=== PATIENT | female | born 1970 | race Caucasian/White ===

== ENCOUNTER 2024-05-23 01:11 | Emergency (ER) | payer BC, SELFPAY ==
[2024-05-23 01:17] VITALS: BP 156/73; PULSE 82; RESP 18; O2SAT 98
--- OUTSIDE RECORDS SUMMARY | 2024-05-23 01:23 | XMS_ITS | Encounter Summary ---
Author Organization [facility] Address [facility] [place] [address] Care Team Providers Care Tobacco Warehouse Manager Name Role Phone Marina Henley MD Primary Care Provider Unava ilable Reason for Visit * Reason Comments Skin Cancer Examination Encounter Details Date Type Department Care Team (Late st Contact Info) Description 08/24/2021 10:30 AM EST Office Visit Dermatology at [facility] [address] [place] [address] Starla Ballard MD [facility] [address] [place] [address] Psoriasis; Lichen sclerosus; Lentigo; History of dysplastic nevus Social History Tobacco Use Types Packs/Day Years Used Date Smoking Tobacco: Never Smokeless Tobacco: Never Alcohol Use Standard Drinks/Week Comments Yes 0 (1 standard drink = 0.6 oz pur e alcohol) less than 1 per month Sex and Gender Information Value Date Recorded Sex Assigned at Not on file Gender Identity Not on file Sexual Orientation Not on file documented as of this encounter Patient Instructions * Patient Instructions* Emy Fung - 08/24/2021 10:59 AM EST For psoriasis: - Start Rx desoximetasone 0.25% ointment: Apply topically to affected area(s) on the right knee twice daily for up to 2 weeks. Take 1 week off and then repeat cycle as needed. For LS: - Continue Rx desoximetasone 0.25% ointment: Apply externally to the vulva twice daily for 2 weeks for flares, then twice weekly for maintenance. documented in this encounter Progress Notes * Starla Ballard MD - 08/24/2021 10:30 AM EST Images from the original note were not included. DEPARTMENT OF DERMATOLOGY Medical Dermatology Clinic Provider: STARLA BALLARD MD Patient's preferred name Ondina Preferred contact method for results [x]Phone []myD-H []Letter Detailed phone message OK? Yes Are there any other people with whom we may discuss your care? 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 Patient returns to clinic today for a full skin exam with the following concerns: - Patient has a history of vulvar lichen sclerosus, which has been treated with topical corticosteroids in the past. She notes that she had a reaction to augmented betamethasone in the past so she has avoided this. She was previously using desoximetasone ointment twice weekly for a couple of months(August-December), but after improvement, she discontinued use. Recently, she has started to develop pruritus, so she has started using desoximetasone twice weekly again. - She also has a rash on the right knee that started as a pruritic bright white crow. She was seen by her PCP, who prescribed triamcinolone cream, which has had some improvement but has not resolved the rash. She has some on her elbows, but it is not as itchy. Denies family history of psoriasis. Last visit at Dermatology: 11/16/2020 Medications: Reviewed in eD-H Allergies: Reviewed in eD-H Skin Examination: Full skin examination: Patient asked to undress to their comfort level. Verbalized that the provider's preference is that patient remove all clothing and that the provider will not examine areas patient elects to keep covered. Examination of the scalp, hair, head, face, ears, neck, chest, axillae, abdomen, back, buttocks, genitalia, and upper and lower extremities was normal with the exception ofthe findings below. Assessment/Plan A. Psoriasis - Heartwell scaly plaque on the right knee. - Discussed that this is a chronic inflammatory condition that can wax and wane in severity over time. - Start Rx desoximetasone 0.25% ointment: Apply topically to affected area(s) on the right knee twice daily for up to 2 weeks. Take 1 week off and then repeat cycle as needed. Discussed GoodRx. B. Lichen Sclerosus - White atrophic plaques with hemorrhage around the vaginal introitus. Diminution of the labia minora. - Discussed that this can lead to scarring over time if untreated, which can lead to functional impairment. - Continue Rx desoximetasone 0.25% ointment: Apply externally to the vulva twice daily for 2 weeks for flares, then twice weekly for maintenance. C. Lentigo - 5 mm brown macule on the left bridge of the nose (Figure 1). - Unchanged from previous photos. Updated photo taken today. D. History of DN - Well-healed scar on the central upper back per skin history. - No evidence of recurrence; will continue to monitor. Figure 1 Photo(s) taken and charted with patient's verbal consent. 30* minutes associated with visit, chart review, documentation, and coordination of care. RTC: 1 year for FSE; offered 6 month follow up for LS, but patient prefers to contact clinic if sheflares []Note routed to area secretary [x]Recall placed in scheduling system []Appointment scheduled at checkout Scribe attestation: Emy Fung and Fanny Martin CMA have performed the documentation for this encounter in the presence of and acting as a scribe for STARLA BALLARD MD. I performed the above scribed service and agree with the accuracy of the documentation in this encounter. Reviewed and signed by: STARLA BALLARD MD Dermatology [facility] documented in this encounter Plan of Treatment Not on file documented as of this encounter Visit Diagnoses Diagnosis Psoriasis Other psoriasis Lichen sclerosus Circumscribed scleroderma Lentigo Other dyschromia History of dysplastic nevus Personal history of diseases of skin and subcutaneous tissue documented in this encounter Care Teams Tobacco Warehouse Manager Relationship Specialty Start Date End Date Marina Henley MD PCP - General General Internal Medicine 11/16/20 07/26/22 documented as of this encounter
--- OUTSIDE RECORDS SUMMARY | 2024-05-23 01:23 | XMS_ITS | Encounter Summary ---
Author Organization [facility] Address [facility] [place] [address] Care Team Providers Care Manager Research And Development Name Role Phone Marina Henley MD Primary Care Provider Umm ackerman Encounter Details Date Type Department Care Team (Late st Contact Info) Description 02/28/2022 Telephone Dermatology at [facility] [address] [place] [address] Sayda Ballard MD [facility] [address] [address] Social History Tobacco Use Types Packs/Day Years [...] on file documented as of this encounter Miscellaneous Notes * Telephone Encounter - Jojo Bennett LPN - 03/02/2022 10:09 AM EDT Called patient and message left that Dr. Ballard felt one year was fine * Telephone Encounter - Lida Dallas - 02/28/2022 1:11 PM EDT I received a phone call from Ondina Fox stating she saw Dr. Ballard in August of 2021 and was told to follow up in 1 year but she just found out that her sister has a newly diagnosed case of melanoma and her mother with breast cancer. She wants to know if she should be seen sooner then 1 year. She did not have any new spots that she could see. She can be reached back at [phone] and it isok to leave a detailed message documented in this encounter Plan of Treatment Not on file documented as of this encounter Visit Diagnoses Not on filedocumented in this encounter Care Teams Manager Research And Development Relationship Specialty Start Date End Date Marina Henley MD PCP - General General Internal Medicine 11/16/20 07/26/22 documented as of this encounter
--- OUTSIDE RECORDS SUMMARY | 2024-05-23 01:23 | XMS_ITS | Encounter Summary ---
Author Organization [facility] Address [facility] [place] [address] Care Team Providers Care Director Digital Analytics Name Role Phone Nadya Mejia PHOTOGRAPHER PORTRAIT Primary Care Provider Encounter Details Date Type Department Care Team (Latest Contact Info) Description 10/25/2023 11:00 AM EDT - 10/25/2023 11:59 PM EDT Hospital Encounter Mammography[place] [id number] Nadya Mejia, PHOTOGRAPHER PORTRAIT [address] [place] [address] Encounter for screening mammogram for breast cancer Discharge Disposition: Home Social History Tobacco Use Types Packs/Day Years [...] on file documented as of this encounter Medications at Time of Discharge Medication Sig Dispensed Refills Start Date End Date desoximetasone (TOPICORT) 0.25 % OintmentIndications:Liche n sclerosus Apply externally to the vulva twice daily once weekly for maintenance. With flares, increase to twice daily for 1-2 weeks. 60 g 1 09/19/2022 desoximetasone (TOPICORT) 0.25 % OintmentIndications:Psori asis Apply topically to affected area(s) on the right knee twice daily for up to 2 weeks. Take 1 week off and then repeat cycle as needed. Apply once to twice weekly to the vulva for maintenance or twice daily for one to two weeks for flares. 100 g 2 08/24/2021 clobetasoL (TEMOVATE) 0.05 % Ointment Apply topically 2 times daily. Use for 2-3 weeks twice daily, then change to once a day on Saturday, Saturday and Saturday. 30 g 2 08/26/2020 augmented betamethasone dipropionate (DIPROLENE-AF) 0.05 % OintmentIndications:Liche n sclerosus Apply to the affected areas twice daily for 14 days. Take two weeks off. Repeat this if needed for flares 45 g 1 08/25/2020 econazole nitrate 1 % CreamIndications:Tinea pedis of both feet Apply topically BID x 3 weeks 15 g 1 03/15/2016 koxotoo-hhjkqeoygfvmk-xyt feine (EXCEDRIN MIGRAINE) 250-250-65 mg Tablet Take 1 tablet by mouth every 6 hours as needed for Pain. propranolol (INDERAL) 20 mg Tablet Take 20 mg by mouth as needed. 0 11/16/2014 Ibuprofen 200 mg Capsule Take by mouth as needed. documented as of this encounter Plan of Treatment Not on file documented as of this encounter Procedures Procedure Name Priority Date/Time Associated Diagnosis Comments MAMMO SCREENING CAD AND KEVIN BILATERAL Routine 10/25/2023 11:18 AM EDT Encounter for screening mammogram for breast cancer documented in this encounter Results * Mammo Screening Cad and Kevin Bilateral (10/25/2023 11:18 AM EDT) Pathologist [employer] WORKSTATION ID [id number] 1 DH RAD Anatomical Region Laterality Modality Breast Bilateral Mammography Impressions 10/25/2023 5:28 PM EDT No mammographic evidence of malignancy. Annual screening mammography is recommended. Consider risk evaluation given family history breast cancer and personal history of dense breast tissue. Patient may benefit from supplemental screening. FINAL ASSESSMENT: BI-RADS Category 1: Negative Thank you for letting us participate in the care of this patient. ??If you are a health care provider and have any questions regarding this report, please contact the number below. ??For patients who have questions please contact the health reservoir caretaker that requested your imaging first. ? Electronically signed by: Beth Adams MD, [facility] ?? ([phone]), at 10/25/2023 5:28 PM Narrative 10/25/2023 5:28 PM EDT EXAMINATION: MAMMO SCREENING CAD AND KEVIN BILATERAL REASON FOR EXAM: Screening; mother with breast cancer history. TECHNIQUE: CC and MLO views were obtained of BOTH breasts. 2D and 3D tomosynthesis images were obtained. Computer aided detection was used. COMPARISON: Comparison was made to the prior relevant examinations. BREAST DENSITY: The breast tissue is heterogeneously dense, which may obscure small masses. FINDINGS: There are no suspicious microcalcifications, masses, or areas of distortion. Stable appearance. Nadya Mejia APRN IMG MAMMO ORDERABLE S documented in this encounter Visit Diagnoses Diagnosis Encounter for screening mammogram for breast cancer documented in this encounter Care Teams Director Digital Analytics Relationship Specialty Start Date End Date Nadya Mejia APRN [address] [place] [address] PCP - General Family Medicine 07/27/22 documented as of this encounter
--- OUTSIDE RECORDS SUMMARY | 2024-05-23 01:23 | XMS_ITS | Encounter Summary ---
Author Organization [facility] Address [facility] [place] [address] Care Team Providers Care Phone Triage Specialist Name Role Phone Arita, Priyanka Jacobs APRN Primary Care Provid er Encounter Details Date Type Department Care Team (Late st Contact Info) Description 03/03/2018 Telephone Dermatology at [facility] [address] [place] [address] Liz Weston MD [facility] [place] [address] Social History Tobacco Use Types Packs/Day Years [...] encounter Miscellaneous Notes * Telephone Encounter - Edwardo Segal - 03/11/2018 11:20 AM EDT I spoke with Ondina's , 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 He told me she would call when she can to reschedule her appointment * Telephone Encounter - Edwardo Segal - 03/03/2018 3:26 PM EDT I left my direct call back #, her 07/04 appointment will need to be rescheduled documented in this encounter Plan of Treatment Not on file documented as of this encounter Visit Diagnoses Not on filedocumented in this encounter Care Teams Phone Triage Specialist Relationship Specialty Start Date End Date Priyanka Arita, KRISTEL PCP - General 04/06/13 08/04/18 documented as of this encounter
--- OUTSIDE RECORDS SUMMARY | 2024-05-23 01:23 | XMS_ITS | Encounter Summary ---
Author Organization [facility] [place] [address] Care Team Providers Care Production Sampler Name Role Phone Nadya Mejia APRN Primary Care Provider [phone] Reason for Referral * Consultation (Routine) - Closed Specialty Diagnoses / Procedures Referred By Kristi t Referred To Contact Obstetrics and Gynecology Diagnoses Lichen sclerosus Nadya Mejia APRN [address] [address] [facility] Senior Applications Analyst [address] [address] Referral ID Status Reason Start Date Expiration Date V isits Requested Visits Authorized [id number] Closed Consult, Test & Treat PCP Updated and/or Approved 01/10/2023 01/10/2024 6 6 Encounter Details Date Type Department Care Team (Late st Contact Info) Description 01/10/2023 Transcribe Orders eDH Incoming Referrals [phone] Nadya Mejia APRN [address] [place], [place] [id number] Lichen sclerosus Social History Tobacco Use Types Packs/Day Years [...] on file documented as of this encounter Plan of Treatment Scheduled Referrals Name Type Priority Associated Diagnoses Orde r Schedule Referral to Ob-Aircraft Mechanic Outpatient Referral Routine Lichen sclerosus Ordered: 01/10/2023 documented as of this encounter Visit Diagnoses Diagnosis Lichen sclerosus Circumscribed scleroderma documented in this encounter Care Teams Production Sampler Relationship Specialty Start Date End Date Nadya Mejia, KRISTEL [address] [place] [address] PCP - General Family Medicine 07/27/22 documented as of this encounter
--- OUTSIDE RECORDS SUMMARY | 2024-05-23 01:23 | XMS_ITS | Encounter Summary ---
Author Organization [facility] Address [facility] [place] [address] Care Team Providers Care Mold Worker Name Role Phone Tamia Perez Primary Care Provider [phone] Reason for Visit * Reason Comments Skin Check Encounter Details Date Type Department Care Team (Late st Contact Info) Description 08/11/2018 3:30 PM EST Office Visit Dermatology at [facility] [address] [place] [id number] Sandra Hemphill MD [facility] [place] [address] Solar lentigo; Multiple benign nevi; Viral warts, unspecified type; Neoplasm of uncertain behavior of skin; Lichen sclerosus Social History Tobacco Use Types [...] on file documented as of this encounter Progress Notes * Sandra Hemphill MD - 08/11/2018 3:30 PM EST Images from the original note were not included. DERMATOLOGY AT [facility] Dermatology At [facility] [address] [facility] [address] FOLLOW-UP Date of service: 08/11/2018 Ondina Seth Fxo : 1970 Provider: Sandra Hemphill MD Preferred name: Ondina Preferred contact method with results: Home # Message okay: Yes ?? SKIN HISTORY H/o dysplastic nevi - mild atypia History of sunburns on scalp History of blistering sunburns History of lots of sun exposure -06/28/17: central upper back just left of midline, shave biopsy:Moderately atypical compound dysplastic melanocytic nevus, Melanoma, Sister Chief Complaint: annual full skin exam History of Present Illness Ondina Fox is a 48 y.o. female with a history of dysplastic nevi. Established patient, last seen 06/28/17. Here today for an annual full skin exam. Patient notes that she has a concerning brown spot on the left side of her nose. She states that she has had this spot checked before. Patient alsostates that she noticed some bumps on her right hand today and is wondering what they may be. Patient notes that her toe nail/foot fungus has returned and she is not interested in trying to retreat this today. She did take oral medication but the fungus returned after clearing. Preferred pharmacy: [facility] [place], [place] Medical History Allergies Hibiclens [chlorhexidine gluconate] Medications Current Outpatient Medications Medication Sig Dispense Refill ??? econazole nitrate 1 % Cream Apply topically BID x 3 weeks 15 g 1 ??? xqbsrvn-qmpgzdwviygzy-rcfiytve (EXCEDRIN MIGRAINE) 250-250-65 mg Tablet Take 1 tablet by mouth every 6 hours as needed for Pain. ??? propranolol (INDERAL) 20 mg Tablet Take 20 mg by mouth as needed. 0 ??? Ibuprofen 200 mg Capsule Take by mouth as needed. No current facility-administered medications for this visit. Social History - History of blistering sunburns Family History - Melanoma, sister (on the face) Review of Systems General: feeling well Skin: denies other skin complaints Examination General: NAD, pleasant, cooperative. Type of exam: The patient was asked to disrobe to the level of their comfort. Full skin examination of the scalp, hair, head, face, neck, back, chest, abdomen, right and left upper extremities, right and left lower extremities and buttocks was normal with the exception of the findings listed below. Significant skin findings: ?? Beneath the left nare: 2mm shiny papule. ?? Left nasal sidewall: clover leaf shaped brown evenly pigmented, well- demarcated macule. ?? Right upper nasal sidewall: 2.5mm pink papule. Back:Multiple, 0.3-0.5cm, medium-brown, evenly-pigmented macules and papules. No pigmented lesions suspicious for melanoma. ?? Base of the thumb: flesh colored papule ?? White patches bilateral vulva, labia major, and extending to the perineum. lichen sclerosus resorption of the labia Images Photo taken and charted with patient consent [Figure A] ASSESSMENT/PLAN: Neoplasm of the Skin DDx: R/o BCC Procedure: Skin biopsy by shave technique Time of procedure: 4:10 PM Location: beneath the left nare Discussed indications for procedure and expectations including risks and benefits. Verbal consent obtained. Skin prep with alcohol. Local anesthesia with 1% xylocaine, 1/100,000 epinephrine. A sampleof the lesion was removed by shave technique to the level of the dermis and submitted to Pathology.Hemostasis obtained (AlCl and/or electrocautery). There were no complications; the pt. tolerated the procedure well. The wound was dressed. Post-procedure expectations, wound care and activity restrictions were reviewed. Follow-up based on pathology results. Solar Lentigo - Benign. No treatment necessary. - Reassured about benign nature and natural history. - Sun avoidance, protective clothing and the use of SPF 30+ sunscreen is advised. Observe closely for skin changes and call if such occurs. Benign Appearing Nevi - Benign. No treatment necessary. - Reassured about benign nature and natural history. Warts ?? Counseled: warts, treatment options (including their risks and benefits), including cryotherapy. ?? No treatment necessary at this time. Lichen Sclerosus - Discussed nature and natural history. - No treatment necessary at this time. Not symptomatic. - Will treat if becomes symptomatic. RTC Pending pathology results. Otherwise August 2019 for 1 year full skin exam, hx of dysplastic nevi- or sooner as needed. Note initiated and routed to physician for review and change by: AMANDA Quarles I, AMANDA Quarles, have performed the documentation for this encounter in the presence of and acting as a scribe for SANDRA HEMPHILL MD. I performed the services which were documented by the scribe, and I agree with the accuracy of the documentation in this encounter. SANDRA HEMPHILL MD. Sandra Hemphill MD Section of Dermatology [facility] documented in this encounter Plan of Treatment Not on file documented as of this encounter Procedures Procedure Name Priority Date/Time Associated Diagnosis Comments SPECIMEN TO PATHOLOGY Routine 08/11/2018 4:48 PM EST Neoplasm of uncertain behavior of skin SURGICAL PATHOLOGY REPORT Routine 08/11/2018 4:10 PM EST documented in this encounter Results * Specimen to Pathology (08/11/2018 4:48 PM EST) AP Specimen 08/11/2018 4:48 PM EST 08/11/2018 6:[address] [facility] - 08/11/2018 6:11 PM EST Specimen requisition ordered. ??Separate Pathology report to follow Resulting Agency Comment Spec In Lab Sandra Hemphill MD PATHOLOGY/CYTOLOGY O RDERABLES [facility] [place] [address] * Surgical Pathology Report (08/11/2018 4:10 PM EST) Final Diagnosis [id number] ? Location: [facility] The signing pathologist has (i) examined the relevant preparation(s) for the specimen(s) and (ii) rendered or confirmed the diagnosis(es). . ?Surgical Pathology DIAGNOSIS Skin, beneath the left nare, shave biopsy: - Predominantly intradermal melanocytic nevus Electronically signed by: ??Molina Jasso MD Verified: ??08/13/2018 ?Dermatopatholog ist, Bone & Soft Tissue Pathologist Performed at: ??-[facility], [place], [place] ADDITIONAL STUDIES Multiple deeper sections have been examined. CLINICAL INFORMATION Specimen Submitted: A - Skin, beneath the left nare, shave biopsy (1) Clinical History and Diagnosis: Beneath the left nare: 2 mm shiny papule. DDX: R/O BCC SPECIMEN PROCESSING A - Labeled/Fixative: Patient's name, demographics, formalin. Quantity/Size: ??Single, 0.3 x 0.2 cm. Tissue Description: Ovoid, translucent lambert-white skin shave. Sections/Processi ng: Submitted en toto ??in 1 cassette labeled A1. ??shb 08/13/2018 2:[address] [facility] SPECIMEN FROM SKIN / Unknown 08/11/2018 4:10 PM EST 08/11/2018 4:10 PM EST Sandra Hemphill MD PATHOLOGY/CYTOLOGY O RDERABLES [facility] [place] [address] documented in this encounter Visit Diagnoses Diagnosis Solar lentigo Other dyschromia Multiple benign nevi Benign neoplasm of skin, site unspecified Viral warts, unspecified type Neoplasm of uncertain behavior of skin Lichen sclerosus Circumscribed scleroderma documented in this encounter Care Teams Mold Worker Relationship Specialty Start Date End Date Tamia Perez PA [address] [place] [address] PCP - General Family Medicine 08/05/18 09/18/20 documented as of this encounter
--- OUTSIDE RECORDS SUMMARY | 2024-05-23 01:23 | XMS_ITS | Encounter Summary ---
Author Organization Formerly [facility], [facility] Address [facility] [place] [address] Care Team Providers Care Recycle Coordinator Name Role Phone Tamia Perez Primary Care Provider +1 [phone] Encounter Details Date Type Department Care Team (Late st Contact Info) Description 05/20/2019 Telephone Dermatology at [facility] [address] [place] [address] Liz Weston MD [facility] [place] [address] Social History Tobacco Use Types Packs/Day Years [...] encounter Miscellaneous Notes * Telephone Encounter - Sunita Pradhan LPN - 05/20/2019 9:56 AM EST Called patient- Left message with directions Dr. Weston gave for a topical medication. Patient gave permission to leave a detailed message during our last phone conversation. Reiterated in the message to call back if she had any questions or did not understand the directions for the medication. documented in this encounter Plan of Treatment Not on file documented as of this encounter Visit Diagnoses Not on filedocumented in this encounter Care Teams Recycle Coordinator Relationship Specialty Start Date End Date Tamia Perez PA [address] [address] PCP - General Family Medicine 08/05/18 09/18/20 documented as of this encounter
--- OUTSIDE RECORDS SUMMARY | 2024-05-23 01:23 | XMS_ITS | Encounter Summary ---
Author Organization [facility] Address [facility] [place] [address] Care Team Providers Care Pre Sales Systems Engineer Name Role Phone Tamia Perez Primary Care Provider +1 [phone] Encounter Details Date Type Department Care Team (Late st Contact Info) Description 04/19/2020 Telephone Dermatology at [facility] [address] [place] [address] Liz Weston MD [facility] [place] [address] Social History Tobacco Use Types Packs/Day Years [...] encounter Miscellaneous Notes * Telephone Encounter - Nataliia Ramirez LPN - 04/19/2020 2:59 PM EDT Augmented betamethasone dipropionate 0.05% ointment prepped and pended to Dr. Weston for signature. Nataliia Ramirez LPN * Telephone Encounter - Elba Lozada R - 04/19/2020 1:58 PM EDT Medication Request Who requested: Patient Medication(s): ?? augmented betamethasone dipropionate (DIPROLENE-AF) 0.05 % Ointment (last prescribed 08/25/19) Pharmacy: [facility] Last seen: 03/14/2020 - RTC: 6m FSE Follow up scheduled for: Nothing currently scheduled Comments: Patient contact: [phone] documented in this encounter Plan of Treatment Not on file documented as of this encounter Visit Diagnoses Not on filedocumented in this encounter Care Teams Pre Sales Systems Engineer Relationship Specialty Start Date End Date Tamia Perez PA [address] [place] [id number] PCP - General Family Medicine 08/05/18 09/18/20 documented as of this encounter
--- OUTSIDE RECORDS SUMMARY | 2024-05-23 01:23 | XMS_ITS | Encounter Summary ---
Author Organization [facility] Address [facility] [place] [address] Care Team Providers Care User Support Analyst Supervisor Name Role Phone Nadya Mejia ENROLLED AGENT Primary Care Provider Encounter Details Date Type Department Care Team (Latest Contact Info) Description 09/19/2022 9:22 AM EDT - 09/19/2022 11:59 PM EDT Hospital Encounter Mammography/[place] [phone] Nadya Mejia, ENROLLED AGENT [address] [place] [address] Visit for screening mammogram Discharge Disposition: Home Social History Tobacco Use [...] x 3 weeks 15 g 1 03/15/2016 vljsuwz-vijiueftkwkix-hbu feine (EXCEDRIN MIGRAINE) 250-250-65 mg Tablet Take [...] MAMMO SCREENING CAD AND KEVIN BILATERAL Routine 09/19/2022 10:38 AM EDT Visit for screening mammogram documented in this encounter Results * Mammo Screening Cad and Kevin Bilateral (09/19/2022 10:38 AM EDT) Anatomical Region Laterality Modality Breast Bilateral Mammography Narrative 09/19/2022 10:45 AM EDT BILATERAL MAMMOGRAPHY REASON FOR EXAM: Screening TECHNIQUE: CC and MLO views were obtained of each breast using standard 2-D mammography as well as 3-D tomosynthesis. Computer aided detection was used. This is compared with prior images. FINDINGS: ??The breasts are heterogeneously dense, which may obscure small masses. There are no suspicious microcalcifications, masses, or areas of distortion. The pattern is stable. CONCLUSION: No mammographic evidence of malignancy. RECOMMENDATION: Regular screening mammograms starting between age 40 and 50 reduces the risk of from breast cancer. All screening tests have both risks and benefits. These risks and benefits should be assessed for each individual patient through discussion with their provider to determine their preferred breast cancer screening schedule. Women should report any breast changes to a health care provider right away. Some women, because of their family history, a genetic tendency, or other factors, should be screened with annual breast MRI as well as with mammograms. (The number of women who fall into this category is very small). Patients and health care providers should discuss each patient? s history to decide if earlier screening and/or breast MRI are appropriate. Screening should continue as long as a woman is in good health and is expected to live 10 years or longer. Screening mammography may not detect 10-15% of breast cancers. A result letter has been sent to this patient by the [facility]. BIRADS CATEGORY 1: NEGATIVE Electronically signed by: ESTUARDO ARREDONDO MD Nadya Mejia APRN IMG MAMMO ORDERABLE S documented in this encounter Visit Diagnoses Diagnosis Visit for screening mammogram Other screening mammogram documented in this encounter Care Teams User Support Analyst Supervisor Relationship Specialty Start Date End Date Nadya Mejia APRN [address] [place] [address] PCP - General Family Medicine 07/27/22 documented as of this encounter
--- OUTSIDE RECORDS SUMMARY | 2024-05-23 01:23 | XMS_ITS | Encounter Summary ---
Author Organization [facility] Address [facility] [place] [address] Care Team Providers Care Grain Roaster Name Role Phone Tamia Perez Primary Care Provider [phone] [phone] Encounter Details Date Type Department Care Team (Late st Contact Info) Description 08/25/2020 Telephone Dermatology at [facility] [address] [place] [address] Liz Weston MD [facility] [place] [address] Social History Tobacco Use Types Packs/Day Years [...] Telephone Encounter - Nataliia Ramirez LPN - 08/25/2020 4:33 PM EST I received a return call from Ondina. See telephone encounter from 08/22/20. Ondina reports itching, burning and discomfort to the areas of Lichen Sclerosus on labia for the past 2 weeks. Reports this is sometimes causing difficulty to sit. She has been using the augmented betamethasone twice daily x 2 weeks with no improvement. She denies any further concerns, including burning with urination, fever or chills. I consulted with Dr. Weston over the phone, who would like to see Ondina in person to r/o any possible infection. I returned Ondina's call and relayed Dr. Weston's recommendation, she is happy with this plan, and will plan on being seen by Dr. Weston tomorrow at 1300. Patient will not pickle processor her recent refill of augmented betamethasone in the meantime. I encouraged her to call our clinic with any new/worsening symptoms. Patient verbalized understanding and was appreciative for our help. Kaleigh Cruz notified, who scheduled Ondina for tomorrow at 1300. Nataliia Ramirez LPN documented in this encounter Plan of Treatment Not on file documented as of this encounter Visit Diagnoses Not on filedocumented in this encounter Care Teams Grain Roaster Relationship Specialty Start Date End Date Tamia Perez PA [address] [place] [address] PCP - General Family Medicine 08/05/18 09/18/20 documented as of this encounter
--- OUTSIDE RECORDS SUMMARY | 2024-05-23 01:23 | XMS_ITS | Encounter Summary ---
Author Organization [facility] Address [facility] [place] [address] Care Team Providers Care Board Hammer Operator Name Role Phone Tamia Perez Primary Care Provider [phone] [phone] Reason for Visit * Reason Onset Date Comments Medication Refill 04/19/2020 Encounter Details Date Type Department Care Team (Late st Contact Info) Description 04/19/2020 Refill Dermatology at [facility] [address] [place] [address] Liz Weston MD [facility] [address] [address] Lichen sclerosus Social History Tobacco Use Types [...] Encounter - Nataliia Ramirez LPN - 04/19/2020 2:55 PM EDT Augmented betamethasone dipropionate (DIPROLENE-AF) 0.05% Ointment refill prescription for Lichen Sclerosus prepped and pended to Dr. Weston to review, sign, and send to the preferred pharmacy. Patient was last seen by Dr. Weston on 03/14/20 for a spot check, LS examined 08/24/19, and a reminder is in place for her to return to clinic in 08/2020. Nataliia Ramirez LPN documented in this encounter Plan of Treatment Not on file documented as of this encounter Visit Diagnoses Diagnosis Lichen sclerosus Circumscribed scleroderma documented in this encounter Care Teams Board Hammer Operator Relationship Specialty Start Date End Date Tamia Perez PA [address] [address] PCP - General Family Medicine 08/05/18 09/18/20 documented as of this encounter
--- OUTSIDE RECORDS SUMMARY | 2024-05-23 01:23 | XMS_ITS | Encounter Summary ---
Author Organization [facility] Address [facility] [place] [address] Care Team Providers Care Railroad Track Inspector Name Role Phone Tamia Perez Primary Care Provider +1 [phone] Encounter Details Date Type Department Care Team (Late st Contact Info) Description 05/20/2019 Orders Only Dermatology at [facility] [address] [place] [address] Liz Weston MD [facility] [address] [place] [address] Social History Tobacco Use Types Packs/Day Years [...] as of this encounter Progress Notes * Liz Weston MD - 05/20/2019 8:55 AM EST Requested med for itching in vulva due to LS. I wrote for betamethasone ointment. Use bid x 2 weeks, then stop. Asked MA to call her and advise: 1) use small amount, rub in well. 2) stop after two weeks, then may use Mon/Wed/Fri if needed, bid 3)come in if this not working or problem gets worse 4)steroid can be complicated by yeast infection, which would show up likely as worsening itch I tried to call home phone, just go machine. documented in this encounter Plan of Treatment Not on file documented as of this encounter Visit Diagnoses Not on filedocumented in this encounter Care Teams Railroad Track Inspector Relationship Specialty Start Date End Date Tamia Perez PA [address] [place] [address] PCP - General Family Medicine 08/05/18 09/18/20 documented as of this encounter
--- OUTSIDE RECORDS SUMMARY | 2024-05-23 01:23 | XMS_ITS | Encounter Summary ---
Author Organization [facility] [place] [address] Care Team Providers Care Nurse Practical Name Role Phone Nadya Mejia APRN Primary Care Provider [phone]- [phone] Encounter Details Date Type Department Care Team (Latest Contact Info) Description 11/22/2023 Travel Social History Tobacco Use Types Packs/Day Years [...] on filedocumented in this encounter Care Teams Nurse Practical Relationship Specialty Start Date End Date Nadya Mejia APRN [address] [place] [address] PCP - General Family Medicine 07/27/22 documented as of this encounter
--- OUTSIDE RECORDS SUMMARY | 2024-05-23 01:23 | XMS_ITS | Encounter Summary ---
Author Organization [facility] Address [facility] [place] [address] Care Team Providers Care Sewing Machine Bobbin Winder Name Role Phone Tamia Perez Primary Care Provider [phone] [phone] Encounter Details Date Type Department Care Team (Latest Contact Info) Description 12/17/2019 3:20 PM EDT - 12/17/2019 11:59 PM EDT Hospital Encounter M[place]ography[place] [phone] Tamia Perez PA [facility] [address] [place] [address] Encounter for screening mammogram for breast cancer [...] Sig Dispensed Refills Start Date End Date econazole nitrate 1 % CreamIndications:Tinea pedis of both feet Apply topically BID x 3 weeks 15 g 1 03/15/2016 ibuvpjp-ueqxqowfajqve-iib feine (EXCEDRIN MIGRAINE) 250-250-65 mg Tablet Take 1 tablet by mouth every 6 hours as needed for Pain. propranolol (INDERAL) 20 mg Tablet Take 20 mg by mouth as needed. 0 11/16/2014 Ibuprofen 200 mg Capsule Take by mouth as needed. augmented betamethasone dipropionate (DIPROLENE-AF) 0.05 % OintmentIndications:Liche n sclerosus Apply 1 each topically 2 times daily. Use up to two weeks, then stop. 15 g 08/25/2019 04/19/2020 documented as of this encounter Plan of Treatment Not on file documented as of this encounter Procedures Procedure Name Priority Date/Time Associated Diagnosis Comments MAMMO SCREENING CAD AND KEVIN BILATERAL Routine 12/17/2019 3:46 PM EDT Encounter for screening mammogram for breast cancer documented in this encounter Results * Mammo Screening Cad and Kevin Bilateral (12/17/2019 3:46 PM EDT) Anatomical Region Laterality Modality Breast Bilateral Mammography Narrative 12/18/2019 8:20 AM EDT BILATERAL MAMMOGRAPHY REASON FOR EXAM: [...] [facility] BIRADS CATEGORY 1: NEGATIVE Tamia MARTINEZ MAMMO ORDERAB LES documented in this encounter Visit Diagnoses Diagnosis Encounter for screening mammogram for breast cancer documented in this encounter Care Teams Sewing Machine Bobbin Winder Relationship Specialty Start Date End Date Tamia Perez PA [address] [address] PCP - General Family Medicine 08/05/18 09/18/20 documented as of this encounter
--- OUTSIDE RECORDS SUMMARY | 2024-05-23 01:23 | XMS_ITS | Encounter Summary ---
Author Organization [facility] Address [facility] [place] [address] Care Team Providers Care Counseling Center Director Name Role Phone AritaUgo bonillaedelmira Jacobs APRN Primary Care Provid er Reason for Visit * Reason Comments Skin Check * Consultation (Routine) - Closed Specialty Diagnoses / Procedures Referred By Kristi good Referred To Contact Dermatology Diagnoses skin check, skin lesions Procedures skin check Tamia Perez PA [address] [facility] [address] [place] [address] [facility] Dermatology [address] [place] [address] Referral ID Status Reason Start Date Expiration Date V isits Requested Visits Authorized [id number] Closed Consult, Test & Treat Connection Center PCP Updated and/or Approved 01/03/2016 01/02/2017 1 1 Encounter Details Date Type Department Care Team (Late st Contact Info) Description 03/15/2016 9:45 AM EDT Office Visit Dermatology at [facility] [address] [place] [phone] Yolanda Najera MD [facility] [place] [address] Multiple benign nevi; Poikiloderma of Civatte; Tinea pedis of both feet; Onychomycosis Social History Tobacco Use Types Packs/Day Years [...] this encounter Patient Instructions * Patient Instructions* Kathy Combs - 03/15/2016 9:45 AM EDT Plan for Ondina: - Recommended sunscreens: Solange Garcia mineral based sunscreen, ThinkBaby Athlete's Foot: - Start Rx: econazole cream twice daily x 3 weeks Caring for Your Skin Sun Protection Exposure to ultraviolet (UV) light--from the sun or tanning beds--is the most common modifiable risk factor for skin cancer. In fact, most skin cancers are found in locations where sun exposure is highest (e.g., face, ears, and hands). Furthermore, UV exposure is associated with skin aging, including wrinkles, brown spots, and leathery skin. Recommendations ?? Generously apply a broad-spectrum water-resistant sunscreen with a Sun Protection Factor (SPF) of 30 or more to all exposed skin. ?? Reapply sunscreen every 2 hours, even on cloudy days, and after swimming or sweating. ?? Preferred sunscreens: Sunscreens work by either forming a physical or a chemical barrier to ultraviolet light. Zinc oxide or Titanium dioxide are physical barriers to the sun. We recommend sunscreens that contain at least one physical barrier. Look for these brands: Neutrogena, Blue Lizard, [place] Baby, Philippe Ruvalcaba MD, Solange eng spf 45 very emollient sport (blue bottle) ?? Wear protective clothing. Long-sleeved shirts, pants, a wide-brimmed hat and sunglasses are all excellent choices. Some companies produce great, breathable SPF clothing (Coolibar, LL Denis, Saturday Afternoons) ?? Seek shade. The sun's rays are strongest between 10a.m. And 4 p.m. ?? Recommend daily face lotion spf 15-30 (Yvonne ONEIL, Delfin Santos) Skin Cancer screening The incidence of skin cancer has increased dramatically in the past 20 years. The most common skin cancer types include basal cell carcinoma and squamous cell carcinoma. These often look like new moles, and they might be tender, scaly, or prone to bleeding. The most deadly form of skin cancer is melanoma, and it can affect people of all ages and skin types. Recommendations ?? We recommend performing a skin self-examination monthly to become familiar with your moles. Thiswill help you to detect new or changing moles earlier. ?? Remember the ABCDE's of melanoma: ?? Asymmetry - Melanoma tends to grow in an asymmetric (uneven) fashion ?? Border - The border in melanoma tends to be uneven or jagged ?? Color - Melanomas often have different colors (e.g., dark brown, black, red) ?? Diameter - Look for moles that are larger than 0.6 cm (the size of a pencil eraser) ?? Evolution - This is perhaps the most important feature. Any mole that is rapidly growing or changing should be evaluated. If you have any questions, please call [phone]. documented in this encounter Progress Notes * Yolanda Najera MD - 03/15/2016 9:45 AM EDT DERMATOLOGY - CONSULT PATIENT NOTE Date of service: 03/15/2016 Ondina Fox : 1970 CC: skin exam HPI: Ondina Fox is a 45 y.o. female seen in consultation at the request of MAVIS Dickey for evaluation of skin lesions - mole check - has not identified any worrisome moles - Toenail fungus for 10-15 years, hurts. Has seen a property claims adjuster who told her there was nothing she could do about it. Was recently seen by her PCP and had labs and Rx sent but she didn't start yet. Last FSE: 2013, Dr. Lopez Sun protection: sometimes on face and upper chest and back. Does not do legs. Outside a lot. Prefers to wear protective clothing. Worried about chemicals in sunscreens. Relevant Medical History: Preferred name: Ondina Skin type: 2 Yes/No If yes (date, subtype, location, treatment) Melanoma n Dysplastic nevi yes Mild atypia SCC n BCC n AK n Eczema/Psoriasis n Immunosuppression or Malignancy n History of blistering sunburn y As a teen Other n Procedure Screening Questions: Yes/No If Yes, details Defibrillator/Pacemaker n Artificial Joints n Heart Valves n Blood Thinners n Prophylactic Antibiotics n Best way to reach with results Home Ok to leave message Relevant FamilyHistory: Yes/No If yes, who (mom/dad/sibling/child) Melanoma n SCC n BCC n Psoriasis or Eczema n Other Social History: Occupation: [employer] 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 Hibiclens [Chlorhexidine Gluconate] Other (See Comments) Possible reaction on day of surgery. Patient reports that entire leg turned red. Review of Systems: - General: Feels well. - Skin: No other skin concerns. Examination: - Constitutional: Patient was alert, well-appearing and in no noticeable distress. - Skin exam: The patient was asked to disrobe to the level of their comfort. Full skin examination of the scalp, hair, head, face, neck, back, chest, abdomen, right and left upper extremities, right and left lower extremities and buttocks was normal with the exception of the findings listed below. Skin Type: 2 Notable findings/Assessment/Plan: 1. Low density benign nevi - Scattered reddish-brown macules and papules on the trunk and extremities with reassuring pigment pattern on dermoscopy. - Reassured of benign appearance on exam today. 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 Cover up. - Patient opted for no treatment at this time. 3. Tinea Pedis - pink arcuate scaly red patches on the bilateral feet - Reviewed diagnosis and treatment. Rx efaxed for Rx: econazole cream BID x 3 weeks 4. Onychomycosis - onychodystrophy of the toenails - Reviewed diagnosis and treatment options. Discussed side effects of oral therapy and risk of recurrence. Given pain or difficulty fitting into shoes would not recommend oral therapy at this time. - We discussed using Lamisil for onychomycosis. This drug offers a fairly high but not universal cure rate. A 12 week treatment course is recommended. The patient is aware that rare cases of liver injury have been reported; and agrees to come in for liver function tests at 6 weeks of treatment. Thesymptoms of liver disease have been discussed; call if such occurs. In addition, some insurance plans do not cover the expense of this drug for treating a cosmetic condition, and the patient understands they may have to pay for the medication. Other side effects, such as headaches and rashes, have also been discussed. - PCP prescribed lamisil and did baseline labs, will follow-up with them to do repeat labs in 1 month. RTC: February 2018 for a FSE or PRN if symptoms worsen or persist. Note initiated by NATASHA CHEEK LPN. Kathy Combs has performed the documentation for this encounter in the presence of and acting asa scribe for Dr. Najera. I performed the above scribed service and agree with the accuracy of the documentation in this encounter. Reviewed and signed by: Yolanda Najera MD Dermatology [facility] documented in this encounter Plan of Treatment Not on file documented as of this encounter Visit Diagnoses Diagnosis Multiple benign nevi Benign neoplasm of skin, site unspecified Poikiloderma of Civatte Other dyschromia Tinea pedis of both feet Onychomycosis Dermatophytosis of nail documented in this encounter Care Teams Counseling Center Director Relationship Specialty Start Date End Date Priyanka Arita, KRISTEL PCP - General 04/06/13 08/04/18 documented as of this encounter
--- OUTSIDE RECORDS SUMMARY | 2024-05-23 01:23 | XMS_ITS | Encounter Summary ---
Author Organization [facility] Address [facility] [place] [address] Care Team Providers Care Collision Repair Technician Name Role Phone Tamia Perez Primary Care Provider [phone] Reason for Visit * Reason Comments Skin Cancer Examination Encounter Details Date Type Department Care Team (Late st Contact Info) Description 08/24/2019 4:00 PM EST Office Visit Dermatology at [facility] [address] [place] [address] Sandra Hemphill MD [facility] [address] [place] [address] Lichen sclerosus (Primary Dx) Social History Tobacco Use Types Packs/Day Years [...] Progress Notes * Sandra Hemphill MD - 08/24/2019 4:00 PM EST Images from the original note were not included. DERMATOLOGY AT [facility] Dermatology [facility] [address] [facility] [address] FOLLOW-UP Date of service: 08/24/2019 Ondina Seth Fox : 1970 Provider: Sandra Hemphill MD Preferred name:??Ondina Preferred contact method with results:??Home # Message okay:??Yes ?? SKIN HISTORY H/o dysplastic nevi - mild atypia History of sunburns on scalp History of blistering sunburns History of lots of sun exposure ?? -06/28/17: central upper back just left of midline, shave biopsy:Moderately atypical compound dysplastic melanocytic nevus, ?? Melanoma, Sister Chief Complaint: Skin cancer screening History of Present Illness Ondina Fox is a 49 y.o. year old female. Established patient, last seen July 2018. Here today for her annual skin cancer examination. She reports that her skin health has been fairly good overall. She reports that her Lichen sclerosis has been stable overall. She did experience a flare since her last visit. She applied the betamethasone ointment as recommended by me via a phone call since her last visit. Allergies Hibiclens [chlorhexidine gluconate] Medications Current Outpatient Medications Medication Sig Dispense Refill ??? augmented betamethasone dipropionate (DIPROLENE-AF) 0.05 % Ointment Apply 1 each topically 2 times daily. Use up to two weeks, then stop. 15 g 0 ??? econazole nitrate 1 % Cream Apply topically BID x 3 weeks 15 g 1 ??? qpkeyfr-wexurozthojcq-iowmdchr (EXCEDRIN MIGRAINE) 250-250-65 mg Tablet Take 1 tablet by mouth every 6 hours as needed for Pain. ??? propranolol (INDERAL) 20 mg Tablet Take 20 mg by mouth as needed. 0 ??? Ibuprofen 200 mg Capsule Take by mouth as needed. No current facility-administered medications for this visit. Social History Family History Review of Systems General: feeling well Skin: [...] findings listed below. Significant skin findings: ?? Labia: Clear on today's exam ?? Scattered on the trunk and extremities: Multiple 0.4-0.6cm brown papules with waxy, stuck-on appearance. ?? Scattered on the trunk and extremities: Multiple, 0.3-0.5cm, medium-brown, evenly-pigmented macules and papules. No pigmented lesions suspicious for melanoma. ?? Bridge of the nose: 5.0 mm pigmented macule Images Photo taken and charted with patient consent ASSESSMENT/PLAN: Lichen Sclerosis --Refill Rx: Betamethasone ointment - Apply to the affected areas twice daily for 14 days. Take twoweeks off. Repeat this if needed for flares. I did not advise a maintenance regimen. Presently she is asymptomatic. Seborrheic Keratoses -- Benign. No treatment necessary. -- Reassured about benign nature and natural history. Pigmented Nevi --Patient was reassured by the benign appearance of these lesions. Lentigo present 5 years (Patient reported). This is the lesion on the dorsum of the nose. --Photograph taken today. --Joint decision to monitor clinically. --Encouraged to call if she notices any changes- if lesion enlarges, becomes darker, spreads out, etc. RTC 6 months to recheck the nose and 1 year - FSE, or sooner if needed. Reminder placed in the scheduling system. Note initiated and routed to physician for review and change by: Sunita Pradhan LPN I, Sunita Pradhan LPN , have performed the documentation for this encounter in the presence of and acting as a scribe Afua HEMPHILL MD. I performed the services which were documented by the scribe, and I agree with the accuracy of the documentation in this encounter. SANDRA HEMPHILL MD. Sandra Hemphill MD Section of Dermatology [facility] documented in this encounter Plan of Treatment Not on file documented as of this encounter Visit Diagnoses Diagnosis Lichen sclerosus- Primary Circumscribed scleroderma documented in this encounter Care Teams Collision Repair Technician Relationship Specialty Start Date End Date Tamia Perez PA [address] [place] [address] PCP - General Family Medicine 08/05/18 09/18/20 documented as of this encounter
--- OUTSIDE RECORDS SUMMARY | 2024-05-23 01:23 | XMS_ITS | Encounter Summary ---
Author Organization [facility] [place] [address] Care Team Providers Care Web Support Engineer Name Role Phone Nadya Mejia APRN Primary Care Provider [phone] Encounter Details Date Type Department Care Team (Latest Contact Info) Description 09/19/2022 Travel Social History Tobacco Use Types Packs/Day [...] on filedocumented in this encounter Care Teams Web Support Engineer Relationship Specialty Start Date End Date Nadya Mejia APRN [address] [place] [address] PCP - General Family Medicine 07/27/22 documented as of this encounter
--- OUTSIDE RECORDS SUMMARY | 2024-05-23 01:23 | XMS_ITS | Encounter Summary ---
Author Organization [facility] Address [facility] [place] [address] Care Team Providers Care Multifocal Lens Assembler Name Role Phone Priyanka Arita INTERTYPE OPERATOR Primary Care Provid er Encounter Details Date Type Department Care Team (Late st Contact Info) Description 06/27/2018 Telephone Dermatology at [facility] [address] [place] [address] Liz Hemphill MD [facility] [place] [address] Social History Tobacco Use Types Packs/Day Years [...] encounter Miscellaneous Notes * Telephone Encounter - Katie Cruz - 06/27/2018 9:42 AM EST LVM ANOTHER TO RESCHEDULE THE 07/04 APPT. W/ DR. HEMPHILL. documented in this encounter Plan of Treatment Not on file documented as of this encounter Visit Diagnoses Not on filedocumented in this encounter Care Teams Multifocal Lens Assembler Relationship Specialty Start Date End Date Priyanka Arita APRN PCP - General 10/14/13 2/11/19 documented as of this encounter
--- OUTSIDE RECORDS SUMMARY | 2024-05-23 01:23 | XMS_ITS | Encounter Summary ---
Author Organization [facility] [place] [address] Care Team Providers Care Aircraft Navigator Name Role Phone Juan J Priyanka Jacobs APRN Primary Care Provid er Reason for Referral * Physical Therapy (Routine) - Closed Specialty Diagnoses / Procedures Referred By Kristi good Referred To Contact Physical Therapy Diagnoses Medial meniscus, posterior horn derangement, left Arabella Reyna SALES MANAGEMENT INTERN [facility] [place] [address] Referral ID Status Reason Start Date Expiration Date V isits Requested Visits Authorized [id number] Closed Evaluate and Treat 02/22/2015 08/21/2015 12 12 Reason for Visit * Reason Comments Left Knee Pain Left Knee Arthroscop y, menisectomy 12/23/14 Encounter Details Date Type Department Care Team (Late st Contact Info) Description 02/22/2015 4:00 PM EDT Office [place] [address] Arabella Reyna [facility] [place] [address] Medial meniscus, posterior horn derangement, left; Left knee pain Discharge Disposition: Home Social History Tobacco Use [...] on file documented as of this encounter Last Filed Vital Signs Vital Sign Reading Time Taken Comments Blood Pressure 114/76 02/22/2015 4:21 PM EDT Pulse 61 02/22/2015 4:21 PM EDT Temperature - - Respiratory Rate - - Oxygen Saturation - - Inhaled Oxygen Concentration - - Weight 69.9 kg (154 lb) 02/22/2015 4:21 PM EDT f ully clothed Height 165.1 cm (5' 5) 02/22/2015 4:21 PM EDT v erbal Body Mass Index 25.63 02/22/2015 4:21 PM EDT documented in this encounter Progress Notes * Arabella Shin, SALES MANAGEMENT INTERN - 02/23/2015 4:41 PM EDT PATIENT NAME: Ondina Fox AGE: 44 y.o. MR#: [id number] DATE OF VISIT: 02/22/2015 DATE OF INJURY/ONSET: Case Date: 12/23/2014 Surgeon: Surgeon(s) and Role: * Arnol Mauro MD - Primary * Rome Frankel MD - Resident-Surgeon Chief Preoperative diagnosis: Posterior root medial meniscus tear left knee Postoperative diagnosis: Posterior root medial meniscus tear left knee Procedure(s): ARTHROSCOPY KNEE, MENISCECTOMY SINGLE W/ SHAVING LEFT MEDIAL Anesthesia: General Findings: Grade 1 DJD patellofemoral joint; partial posterior horn root tear of medial meniscus debrided; grade 2 DJD medial femoral condyle; normal ACL and PCL; normal lateral meniscus and lateral chondral surfaces. Complications: None HISTORY OF PRESENT ILLNESS Ms. Ruddy bynum 44 y.o. year old female comes into clinic today 2 months status post the above procedure. Briefly, the patient went on a 2 week long backpacking trip 1 monthpostoperatively. During her trip she noted increased swelling of the knee and a return of intermittent medial/anterior knee pain. The knee became particularly swollen along with the remainder of the calf and ankle on her plane ride back from [place]. She called the Ortho department last week and wasadvised to pursue a DVT duplex which was ultimately negative. Since that time, she reports continued reduction in her swelling. However, she does verbalizes concern about feeling instability and weakness in the knee and is concerned that he has not regained all of her function or have her symptoms completely resolved to preinjury status. She particularly notes this pain when getting out of bed inthe morning as well as when completing deep knee bends. She denies any new incident or twisting injury while on her backpacking trip. No redness of the joint. No fevers, chills, night sweats or othersigns of infection. She has been utilizing compression and rest since she has returned home. Active Ambulatory Problems Diagnosis Date Noted ??? Medial meniscus, posterior horn derangement left s/p arthroscopic debridement 12/23/14 11/17/2014 Resolved Ambulatory Problems Diagnosis Date Noted ??? No Resolved Ambulatory Problems No Additional Past Medical History Allergies Allergen Reactions ??? Hibiclens [Chlorhexidine Gluconate] Other (See Comments) Possible reaction on day of surgery. Patient reports that entire leg turned red. ROS: Negative for fever, chills, SOB, chest pain, nausea, vomiting, and diarrhea. Physical Exam Blood pressure 114/76, pulse 61, height 165.1 cm (5' 5), weight 69.854 kg (154 lb). Constitutional: oriented to person, place, and time and well-developed, well- nourished, and in no distress. Skin: Skin is warm and dry. Incisions are well healed. Left Knee Exam Comments: Comes in without antalgia. Trace to 1+ effusion. Mild quadricep atrophy. ROM 130 deg flexion, 0 deg extension. 135 deg on contralateral side. No medial joint line tenderness. No lateral joint line tenderness. Negative patellar apprehension test. Stable to varus/valgus stress. No A/P translation. Negative Steinmann's and Alan's. Able to do a straight leg raise without lag. Normal sensation and motor function distally. DP and PT pulses 2+ to palpation. ASSESSMENT/PLAN: Ondina Fox is a 44 y.o. female who presents to the clinic 2 months s/p left knee partial medial menisectomy, with increased knee pain and swelling after going on a 2 week long backpacking trip and [place] one-month status post surgery. Her exam today is very reassuring that she has not sustained further internal derangement. We discussed that she probably overdid it with backpacking on a postsurgical knee with evidence of grade 1-2 degenerative changes. Her swelling today was really quite minimal. We discussed continuation of use of compression ice and elevation. I have referred her to physical therapy for work on range of motion, gait training, balance, proprioception, strengthening and use of local modalities for pain. I would like her to return to clinic in 8-10 weeks for reassessment or sooner for worsening symptoms. She is in agreement with this plan and will call with any questions in the interim. documented in this encounter Plan of Treatment Scheduled Referrals Name Type Priority Associated Diagnoses Orde r Schedule Referral to Physical Therapy Outpatient Referral Routine Medial meniscus, posterior horn derangement, left Ordered: 02/22/2015 documented as of this encounter Visit Diagnoses Diagnosis Medial meniscus, posterior horn derangement, left Left knee pain Pain in joint, lower leg documented in this encounter Care Teams Aircraft Navigator Relationship Specialty Start Date End Date Priyanka Arita APRN PCP - General 04/06/13 08/04/18 documented as of this encounter
--- OUTSIDE RECORDS SUMMARY | 2024-05-23 01:23 | XMS_ITS | Encounter Summary ---
Author Organization [facility] Address [facility] [place] [address] Care Team Providers Care Forensic Science Technician Name Role Phone AritaUgo bonillaedelmira Jacobs APRN Primary Care Provid er Encounter Details Date Type Department Care Team (Late st Contact Info) Description 09/19/2020 2:00 PM EDT Office Visit Dermatology [facility] [address] [place] [address] Sandra Hemphill MD [facility] [address] [place] [address] Lichen sclerosus; Multiple benign nevi; Seborrheic keratosis; Family history of melanoma Social History Tobacco Use Types Packs/Day Years [...] Progress Notes * Sandra Hemphill MD - 09/19/2020 2:00 PM EDT Images from the original note were not included. DERMATOLOGY AT [facility] Dermatology [facility] [address] [facility] [address] FOLLOW-UP Date of service: 09/19/[address] : 1970 Provider: Sandra Hemphill MD Preferred name:??Ondina Preferred contact method with results:??Home # Message okay:??Yes I give Dr. Hemphill's team permission to discuss my results with: ?? SKIN HISTORY: H/o dysplastic nevi - mild atypia History of sunburns on scalp History of blistering sunburns History of lots of sun exposure ?? -06/28/17:??central upper back just left of midline, shave biopsy: Moderately atypical compound dysplastic melanocytic nevus, ?? Lichen Sclerosis ?? Family hx of??melanoma, sister Chief Complaint: full skin exam History of Present Illness Ondina Fox is a 50 y.o. year old female. Established patient, last seen 08/26/20. Here today for a full skin exam. She notes that she has been treating her LS of the genitals with clobetasol ointment, which as been helping when she is more consistent with treatment. She is treating about 3x perweek. Notes that it flared 4 days after she was here it was intensely itchy. She notes that a few days with the clobetasol it went away. Today is a good day. Over the last few days she notes intermittent itch. Denies history of vaginal yeast infections. She notes that the itching and discomfort, attimes pain, has now extended along the perineum posteriorly. Medical History Noncontributory Allergies Hibiclens [chlorhexidine gluconate] Medications Current Outpatient Medications Medication Sig Dispense Refill ??? clobetasoL (TEMOVATE) 0.05 % Ointment Apply topically 2 times daily. Use for 2-3 weeks twice daily, then change to once a day on Saturday, Saturday and Saturday. 30 g 2 ??? augmented betamethasone dipropionate (DIPROLENE-AF) 0.05 % Ointment Apply to the affected areastwice daily for 14 days. Take two weeks off. Repeat this if needed for flares 45 g 1 ??? econazole nitrate 1 % Cream Apply topically BID x 3 weeks 15 g 1 ??? rywkhkw-agtqjbmemlups-kvxqmzhr (EXCEDRIN MIGRAINE) 250-250-65 mg Tablet Take 1 tablet by mouth every 6 hours as needed for Pain. ??? propranolol (INDERAL) 20 mg Tablet Take 20 mg by mouth as needed. 0 ??? Ibuprofen 200 mg Capsule Take by mouth as needed. No current facility-administered medications for this visit. Social History Lives in [place], [place] ?? Family History Sister, Melanoma (on the face) Review of Systems General: [...] findings listed below. Significant skin findings: ?? Back: Multiple, 0.3-0.5cm, medium-brown, evenly-pigmented macules and papules. No pigmented lesions suspicious for melanoma. ?? Back: Multiple 0.4-1 cm, brown-black papules/plaques with waxy stuck on appearance ?? Dull pinkish white erythema of the labia bilaterally, with brighter, almost hot pink colored patches symmetrically extending from the inferior vulva along the perineum to the anus. HAYES is negative. No satellite papules or pustules. ?? Erosion on the left lower vulva ASSESSMENT/PLAN: Benign Appearing Nevi - Benign. No treatment necessary. - Reassured about benign nature and natural history. Seborrheic Keratoses - Benign. No treatment necessary. - Reassured about benign n ature and natural history. Lichen sclerosus, improving. Symmetrically pink. - Patient notes persistent itch, sensitivity, and feelings of inflammation. Denies history of vaginal yeast infections. - HAYES negative for fungal elements - Advised to stop treating friction with [place]-- I am wondering if this is in any way accounting for the bright pink change inferiorly (?contact) and instead switch to Vaseline - Joint decision to switch from Clobetasol to Desoximetasone, to rule out steroid allergy. - Start Rx Desoximetasone ointment 0.25% (60g) BID for up to 2 weeks, take 1 week off, and repeat as needed. For maintenance, reduce to BID 3x per week. ([employer] in [place]). GoodRx coupon provided. Family history of??melanoma, sister - Annual skin exam RTC: 6-8 weeks for LS follow up. Routed. [address] Cervantes (x of Melanoma). Recall placed. Note initiated and routed to physician for review and change by: Nandini Sethi CMA I, Akin Lee , have performed the documentation for this encounter in the presence of and acting as a scribe for SANDRA HEMPHILL MD. I performed the services which were documented by the scribe, and I agree with the accuracy of the documentation in this encounter. SANDRA HEMPHILL MD. Sandra Hemphill MD Professor of Dermatology Department of Dermatology [facility] documented in this encounter Plan of Treatment Not on file documented as of this encounter Visit Diagnoses Diagnosis Lichen sclerosus Circumscribed scleroderma Multiple benign nevi Benign neoplasm of skin, site unspecified Seborrheic keratosis Other seborrheic keratosis Family history of melanoma Family history of other specified malignant neoplasm documented in this encounter Care Teams Forensic Science Technician Relationship Specialty Start Date End Date Priyanka Arita, KRISTEL PCP - General Family Medicine 09/19/20 11/03/20 documented as of this encounter
--- OUTSIDE RECORDS SUMMARY | 2024-05-23 01:23 | XMS_ITS | Encounter Summary ---
Author Organization [facility] Address [facility] [place] [address] Care Team Providers Care Insurance Marketing Specialist Name Role Phone Marina Henley MD Primary Care Provider Umm ackerman Encounter Details Date Type Department Care Team (Late st Contact Info) Description 11/16/2020 11:30 AM EDT Office Visit Dermatology at [facility] [address] [place] [address] Sandra Hemphill MD [facility] [address] [place] [address] Lichen sclerosus Social History Tobacco Use Types [...] Progress Notes * Sandra Hemphill MD - 11/16/2020 11:30 AM EDT Images from the original note were not included. DEPARTMENT OF DERMATOLOGY Medical Dermatology Clinic Provider: SANDRA HEMPHILL MD Patient's preferred name Ondina Preferred contact method for results [] myDH [] Letter [] Phone: home Detailed phone message OK? Yes PAST MEDICAL HISTORY Y/N Date, location, treatment Melanoma N Dysplastic nevi Yes -06/28/17:??central upper back just left of midline, Moderately atypical compounddysplastic melanocytic nevus, SCC N BCC N AKs N Blistering sunburns or tanning bed use N Other relevant past medical history (i.e. eczema, psoriasis, birthmarks, immunosuppression) Yes Lichen Sclerosus, Tinea pedis FAMILY HISTORY Y/N If yes, details Melanoma Yes Sister NMSC N Other relevant family history N SOCIAL HISTORY Lives in [place], [place] Diagnosis or treatment significantly limited by social determinants of health? No History of Present Illness: Ondina Fox is a 50 y.o., established patient, last seen by myselfon 09/19/2020. Here today for a lichen sclerosus follow up with the following concerns: - At last visit, switched from Clobetasol to Desoximetasone, she was doing the recommended BID for 2 weeks on, 1 week off, but has decreased now to application about once weekly; she has noticed major improvement in the condition, she notes that she no itching or symptoms currently and the LS is under good control at this time. Medications: Reviewed in eD-H Allergies: Reviewed in eD-H Skin Examination: Focused skin examination of the genitalia was normal with the exception of the findings below Assessment/Plan Lichen sclerosus with question history of contact allergy to clobetasol, improving - Labia clear onexam - Patient notes itch and sensitivity has resolved after switching from Clobetasol ointment to Desoximetasone. Question of contact allergy. - Patient agrees to send letter with list or picture of ingredients - Continue sensitive skin care. Avoid fragrances. - Discussed risks of developing SCC with chronic, flaring lichen sclerosus - Patient has been having good control with BID 1x per week. Joint decision to continue topical steroid use weekly or every other week. - Continue Rx Desoximetasone ointment 0.25% (60g): Apply topically to the affected areas on the genitalia BID 1 day per week. If stable, ok to reduce to BID 1 day every other week. Other items to document in the assessment/plan if relevant ??? Sun protection/OTC skin products discussed RTC: August [address] Cervantes. Recall already placed. Scribe attestation: Nandini Sethi CMA and Akin Lee have performed the documentation for this encounter in the presence of and acting as a scribe for SANDRA HEMPHILL MD I performed the above scribed service and agree with the accuracy of the documentation in this encounter. Reviewed and signed by: SANDRA HEMPHILL MD Dermatology [facility] documented in this encounter Plan of Treatment Not on file documented as of this encounter Visit Diagnoses Diagnosis Lichen sclerosus Circumscribed scleroderma documented in this encounter Care Teams Insurance Marketing Specialist Relationship Specialty Start Date End Date Marina Henley MD PCP - General General Internal Medicine 11/16/20 07/26/22 documented as of this encounter
--- OUTSIDE RECORDS SUMMARY | 2024-05-23 01:23 | XMS_ITS | Encounter Summary ---
Author Organization [facility] Address [facility] [place] [address] Care Team Providers Care Head Bone Grinder Name Role Phone Tamia Perez Primary Care Provider [phone] Encounter Details Date Type Department Care Team (Late st Contact Info) Description 03/14/2020 4:00 PM EDT Office Visit Dermatology at [facility] [address] [place] [address] Sandra Hemphill MD [facility] [place] [address] Lentigo Social History Tobacco Use Types Packs/Day Years [...] Progress Notes * Sandra Hemphill MD - 03/14/2020 4:00 PM EDT Images from the original note were not included. DERMATOLOGY AT [facility] Dermatology At [facility] [address] [facility] [address] FOLLOW-UP Date of service: 03/14/2020 Ondina Seth Fox : 1970 Provider: Sandra Hemphill MD Preferred name:??Ondina Preferred contact method with results:??Home # Message okay:??Yes ?? SKIN HISTORY H/o dysplastic nevi - mild atypia History of sunburns on scalp History of blistering sunburns History of lots of sun exposure ?? -06/28/17:??central upper back just left of midline, shave biopsy: Moderately atypical compound dysplastic melanocytic nevus, ?? Family hx of melanoma, sister ? Chief Complaint: recheck spot on nose History of Present Illness Ondina Fox is a 49 y.o. year old female. Established patient, last seen 08/24/19. Here today for a recheck of the spot on the nose. Her thinks that it may be getting larger, she herself has not noticed any changes in the lesion. Medical History noncontributory Allergies Hibiclens [chlorhexidine gluconate] Medications Current Outpatient Medications Medication Sig Dispense Refill ??? augmented betamethasone dipropionate (DIPROLENE-AF) 0.05 % Ointment Apply 1 each topically 2 times daily. Use up to two weeks, then stop. 15 g 0 ??? econazole nitrate 1 % Cream Apply topically BID x 3 weeks 15 g 1 ??? ryfeuku-jaqvhvrpnuvez-kaizvwiy (EXCEDRIN MIGRAINE) 250-250-65 mg Tablet Take 1 tablet by mouth every 6 hours as needed for Pain. ??? propranolol (INDERAL) 20 mg Tablet Take 20 mg by mouth as needed. 0 ??? Ibuprofen 200 mg Capsule Take by mouth as needed. No current facility-administered medications for this visit. Social History Lives in [place], [place] Family History Sister, Melanoma (on the face) Review of Systems General: feeling well Skin: denies other skin complaints Examination General: NAD, pleasant, cooperative. Type of exam:. Significant skin findings: ?? 5 mm pigmented macule on the bridge of the nose. No change compared to last visit photos. ASSESSMENT/PLAN: Lentigo - dorsum of the nose - Compared with photograph taken on 08/24/2019. Has not grown or changed. - Joint decision to continue to monitor clinically. RTC 6 months for FSE Note initiated and routed to physician for review and change by: Nandini Sethi, FAMILIA I, Akin Lee, have performed the documentation for this encounter in the presence of and acting as a scribe for SANDRA HEMPHILL MD. I performed the services which were documented by the scribe, and I agree with the accuracy of the documentation in this encounter. SANDRA HEMPHILL MD. Sandra Hemphill MD Section of Dermatology [facility] documented in this encounter Plan of Treatment Not on file documented as of this encounter Visit Diagnoses Diagnosis Lentigo Other dyschromia documented in this encounter Care Teams Head Bone Grinder Relationship Specialty Start Date End Date Tamia Perez PA [address] [place] [id number] PCP - General Family Medicine 08/05/18 09/18/20 documented as of this encounter
--- OUTSIDE RECORDS SUMMARY | 2024-05-23 01:23 | XMS_ITS | Encounter Summary ---
Author Organization [facility] [place] [address] Care Team Providers Care Senior Administrative Support Name Role Phone Nadya Mejia APRN Primary Care Provider [phone]- [phone] Encounter Details Date Type Department Care Team (Latest Contact Info) Description 10/25/2023 Travel Social History Tobacco Use Types Packs/Day [...] on filedocumented in this encounter Care Teams Senior Administrative Support Relationship Specialty Start Date End Date Nadya Mejia APRN [address] [place] [address] PCP - General Family Medicine 07/27/22 documented as of this encounter
--- OUTSIDE RECORDS SUMMARY | 2024-05-23 01:23 | XMS_ITS | Encounter Summary ---
Author Organization [facility] Address [facility] [place] [address] Care Team Providers Care Associate Creative Director Name Role Phone Tamia Perez Primary Care Provider [phone] Encounter Details Date Type Department Care Team (Late st Contact Info) Description 08/22/2020 Telephone Dermatology at [facility] [address] [place] [address] Liz Weston MD [facility] [place] [address] Social History Tobacco Use Types Packs/Day Years [...] encounter Miscellaneous Notes * Telephone Encounter - Kinza Almaguer LPN - 08/24/2020 10:18 AM EST Script pended to Dr. Weston to sign at her request. Betamethasone ointment - Apply to the affected areas twice daily for 14 days. Take two weeks off. Repeat this if needed??for flares * Telephone Encounter - Nataliia Ramirez LPN - 08/23/2020 9:09 AM EST I left a message on Ondina's requested number, asking her to return my call when she is available [phone]. Dr. Weston, per your visit in August 2019: Lichen Sclerosis --Refill Rx: Betamethasone ointment - Apply to the affected areas twice daily for 14 days. Take twoweeks off. Repeat this if needed for flares. I did not advise a maintenance regimen. Presently she is asymptomatic. She was seen in the fall, but for a spot on the nose only. She is scheduled to see you at the end of this month, would you like to see if she can be seen earlier? Nataliia Ramirez LPN * Telephone Encounter - Elba Lozada - 08/22/2020 10:08 AM EST Patient contacted the clinic today requesting to speak with a nurse regarding the augmented betamethasone dipropionate (DIPROLENE-AF) 0.05 % Ointment prescribed in March 2020. Patient does not feelshe is responding to the treatment. Patient is scheduled for follow up with Dr. Weston on 09/19/20. Patient can be reached at [phone] documented in this encounter Plan of Treatment Not on file documented as of this encounter Visit Diagnoses Not on filedocumented in this encounter Care Teams Associate Creative Director Relationship Specialty Start Date End Date Tamia Perez PA [address] [place] [address] PCP - General Family Medicine 08/05/18 09/18/20 documented as of this encounter
--- OUTSIDE RECORDS SUMMARY | 2024-05-23 01:23 | XMS_ITS | Encounter Summary ---
Author Organization [facility] Address [facility] [place] [address] Care Team Providers Care Brine Mixer Operator Name Role Phone Juan J Priyanka Jacobs APRN Primary Care Provid er Reason for Visit * Reason Onset Date Comments Appointment 02/23/2015 Encounter Details Date Type Department Care Team (Late st Contact Info) Description 02/23/2015 Telephone [place] [phone] Arnol Mauro MD [facility] [place] [address] Appointment Social History Tobacco Use Types Packs/Day Years [...] encounter Miscellaneous Notes * Telephone Encounter - Lurdes Arcos - 02/24/2015 2:11 PM EDT Patient scheduled for 04/26/15. * Telephone Encounter - Nahomi Hilario - 02/23/2015 9:30 AM EDT Lm#1 to schedule follow up in [address] Mauro documented in this encounter Plan of Treatment Not on file documented as of this encounter Visit Diagnoses Not on filedocumented in this encounter Care Teams Brine Mixer Operator Relationship Specialty Start Date End Date Priyanka Arita, SUPERVISOR SEWING DEPARTMENT PCP - General 04/06/13 08/04/18 documented as of this encounter
--- OUTSIDE RECORDS SUMMARY | 2024-05-23 01:23 | XMS_ITS | Encounter Summary ---
Author Organization [facility] Address [facility] [place] [address] Care Team Providers Care Hemstitching Machine Operator Name Role Phone Priyanka Arita Reynaldo HUMPHRIES Primary Care Provid er Encounter Details Date Type Department Care Team (Late st Contact Info) Description 03/03/2015 Telephone Orthopaedics at [facility] [place] [phone] Jyoti Mar, RN Social History Tobacco Use Types Packs/Day Years [...] encounter Miscellaneous Notes * Telephone Encounter - Jyoti Mar RN - 03/03/2015 11:06 AM EDT Response from Dr. Mauro concerning pt request for left knee MRI: Only if her pain is in a completely different location and related to a new injury. Otherwise an MRI can't distinguish old surgery from a new injury if it hurts in the same place. So I doubt that it is indicated at this point. Pt states this is not a new injury or a pain in a completely different area. Pt notified of the decision not to order an MRI at this point. She was doubtful as to how distinguish if she did in fact injure her left knee. I asked her to participate in physical therapy and if after at least 3 sessions the pain does not improve to call orthopaedics to discuss further treatment. documented in this encounter Plan of Treatment Not on file documented as of this encounter Visit Diagnoses Not on filedocumented in this encounter Care Teams Hemstitching Machine Operator Relationship Specialty Start Date End Date Priyanka Arita, JEWELRY DRILLING MACHINE OPERATOR PCP - General 04/06/13 08/04/18 documented as of this encounter
--- OUTSIDE RECORDS SUMMARY | 2024-05-23 01:23 | XMS_ITS | Encounter Summary ---
Author Organization [facility] Address [facility] [place] [address] Care Team Providers Care Chief Recordist Name Role Phone Priyanka Arita TELEVISION REPAIRER Primary Care Provid er Encounter Details Date Type Department Care Team (Late st Contact Info) Description 06/26/2018 Telephone Dermatology at [facility] [address] [place] [address] [facility] [address] [place] [address] Social History Tobacco Use Types Packs/Day Years [...] * Telephone Encounter - Katie Cruz - 06/26/2018 12:23 PM EST LVM W/ CB# to RESCHEDULE APPT. ALSO MAILED OUT LETTER. documented in this encounter Plan of Treatment Not on file documented as of this encounter Visit Diagnoses Not on filedocumented in this encounter Care Teams Chief Recordist Relationship Specialty Start Date End Date Priyanka Arita APRN PCP - General 04/06/13 08/04/18 documented as of this encounter
--- OUTSIDE RECORDS SUMMARY | 2024-05-23 01:23 | XMS_ITS | Encounter Summary ---
Author Organization [facility] [place] [address] Care Team Providers Care Process Control Engineer Name Role Phone Nadya Mejia APRN Primary Care Provider [phone] Encounter Details Date Type Department Care Team (Late st Contact Info) Description 11/22/2023 11:20 AM EDT Office Visit Dermatology at [facility] [address] [place] [address] Sunita Calderon MD [facility] [address] [place] [address] Lentigo; Lichen sclerosus; History of dysplastic nevus; Family history of melanoma; Freed angioma; Multiple benign nevi; SK (seborrheic keratosis) Social History Tobacco Use Types Packs/Day Years [...] as of this encounter Progress Notes * Sunita Calderon MD - 11/22/2023 11:20 AM EDT Images from the original note were not included. DEPARTMENT OF DERMATOLOGY Medical Dermatology Clinic Provider: Sunita Calderon MD Patient's preferred name Ondina Preferred contact method for results [x]Phone []myD-H []Letter Detailed phone message OK? Yes Are there any other people with whom we may discuss your care? Past Medical History Date, location, treatment Melanoma N Dysplastic nevi 07/20/2013: mid upper back 2.0 cm left of midline and 2.0 cm superior to scar, mild DN 06/28/2017: central upper back, just left of midline, moderate DN SCC N BCC N AKs N UV Exposure & Protection N Other relevant past medical history - Lichen Sclerosus, vulva (previous reaction to augmented betamethasone, tolerates desoximetasone) - Tnea pedis - 08/11/2018: beneath the left nare, predominately intradermal melanocytic nevus Family History Details Melanoma Sister NMSC N Other relevant family history Mother: breast cancer Social History 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 Patient returns to clinic today for a full skin exam. Patient reports the following: - Continues Desoximetasone Ointment twice weekly for vulvar LS. Denies any flares or concerns. Last visit at Dermatology: 09/19/2022 Last visit with this provider: Visit date not found Medications: Reviewed in eD-H Allergies: Reviewed in eD-H Skin Examination: Full skin examination: Patient asked to undress to their comfort level. Verbalized that the provider's preference is that patient remove all clothing and that the provider will not examine areas patient elects to keep covered. Examination of the scalp, hair, head, face, ears, neck, chest, axillae, abdomen, back, buttocks, and upper and lower extremities was normal with the exception of the findings below. Genitalia not examined. Assessment/Plan #. 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 - No evidence of recurrence; will continue to monitor. #. Family History of Melanoma (Sister) - Given the increased risk factor, I recommend that they have a full skin exam every year. #. Lichen Sclerosus - patient declines vulvar exam today, denies any issues/concerns. - Discussed that this can lead to scarring over time if untreated, which can lead to functional impairment. There is a slightly increased risk of a skin cancer in the area due to chronic inflammation. - Continue Rx desoximetasone 0.25% ointment: Apply externally to the vulva twice daily once weekly for maintenance. With flares, increase to twice daily for 1-2 weeks. - Instructed patient to contact clinic if she develops any new lesions/lumps/bumps on the vulva. #. Favor Seborrheic Keratosis vs Lentigo - 5 mm brown macule on the left bridge of the nose. - Unchanged from previous photos (08/24/2019 and 08/24/2021). - previously reviewed potential cosmetic treatments, including laser. Can consider in the future. #. Seborrheic Keratoses - Tashua-brown papules/plaques with waxy, stuck-on appearance scattered on the head, trunk, and extremities. - Explained that these are hereditary and adult-acquired. Reassured patient of benign nature. No treatment necessary. #. Benign-Appearing Nevi - Medium brown, evenly pigmented macules and papules scattered on the trunk and extremities. Reassuring pigment pattern on dermoscopy. - Discussed benign appearance and provided reassurance. Will continue to monitor. - Advised to watch for anything new, changing (e.g., color or shape), or symptomatic (e.g., easy bleeding, tenderness, pain). #. Freed Angiomas - Bright red, well-demarcated papules on the trunk. - Discussed benign nature and provided reassurance. No treatment necessary. Other: Sun protection discussed (protective clothing and SPF30+ broad-spectrum sunscreen) RTC: 1 year for FSE, sooner if needed for any skin concerns. []Note routed to exterior interior specialist [x]Recall placed in scheduling system []Appointment scheduled at checkout Scribe attestation: Nataliia Ramirez LPN has performed the documentation for this encounter in the presence of and acting as a scribe for Sunita Calderon MD. I performed the above scribed service and agree with the accuracy of the documentation in this encounter. Reviewed and signed by: Sunita Calderon MD Dermatology [facility] Patient seen and evaluated with staff pack master: Cecilia Cervantes MD Dermatology [facility] * Cecilia Cervantes MD - 11/22/2023 11:20 AM EDT I directly supervised Sunita Calderon MD in the care of this Dermatology patient in person. I saw and evaluated this patient with Sunita Calderon MD. Sunita Calderon MD presented the history and physical exam details to me, then we saw the patient together, and I confirmed these findings. I agree with details as written. My physical examination confirms Sunita Calderon MD's findings. The assessment and plan were formulated in discussion with me at the time of visit, and I agree with them as documented. Cecilia Cervantes MD Staff Composing Machine Operator/Tender Department of Dermatology [facility] documented in this encounter Plan of Treatment Not on file documented as of this encounter Visit Diagnoses Diagnosis Lentigo Other dyschromia Lichen sclerosus Circumscribed scleroderma History of dysplastic nevus Personal history of diseases of skin and subcutaneous tissue Family history of melanoma Family history of other specified malignant neoplasm Freed angioma Nevus, non-neoplastic Multiple benign nevi Benign neoplasm of skin, site unspecified SK (seborrheic keratosis) Other seborrheic keratosis documented in this encounter Care Teams Process Control Engineer Relationship Specialty Start Date End Date Nadya Mejia, FINANCIAL SYSTEMS ADMINISTRATOR [address] [place] [address] PCP - General Family Medicine 07/27/22 documented as of this encounter
--- OUTSIDE RECORDS SUMMARY | 2024-05-23 01:23 | XMS_ITS | Encounter Summary ---
Author Organization [facility] [place] [address] Care Team Providers Care Conference Manager Name Role Phone Priyanka Arita RECEPTION AGENT Primary Care Provid er Encounter Details Date Type Department Care Team (Late st Contact Info) Description 02/17/2015 Orders [place] [address] [facility] [place] [address] Social History Tobacco Use Types Packs/Day Years Used Date Smoking Tobacco: Never Smokeless Tobacco: Never Alcohol Use Standard Drinks/Week Comments Yes 0 (1 standard drink = 0.6 oz pur e alcohol) rre Sex and Gender Information Value Date Recorded Sex Assigned at Not on file Gender Identity Not on file Sexual Orientation Not on file documented as of this encounter Plan of Treatment Not on file documented as of this encounter Visit Diagnoses Not on filedocumented in this encounter Care Teams Conference Manager Relationship Specialty Start Date End Date Priyanka Arita APRN PCP - General 04/06/13 08/04/18 documented as of this encounter
--- OUTSIDE RECORDS SUMMARY | 2024-05-23 01:23 | XMS_ITS | Encounter Summary ---
Author Organization [facility] Address [facility] [place] [address] Care Team Providers Care Interior Decorator Painting Name Role Phone Tamia Perez Primary Care Provider [phone] [phone] Encounter Details Date Type Department Care Team (Late st Contact Info) Description 05/19/2019 Telephone Dermatology at [facility] [address] [place] [address] Liz Weston MD [facility] [place] [address] Social History Tobacco Use Types Packs/Day Years [...] encounter Miscellaneous Notes * Telephone Encounter - Liz Weston MD - 05/20/2019 9:00 AM EST Requested med for itching in [...] would show up likely as worsening itch ?? I tried to call home phone, just go machine. ??8:59 AM * Telephone Encounter - Sunita Pradhan LPN - 05/19/2019 4:24 PM EST Spoke with patient concerning her diagnoses of LS addressed during her last visit in July at which patient was asymptomatic. Patient reports that she is now experiencing itching. She is wonderingif she can be prescribed anything for her symptoms rather than coming in for a visit, but is willing to come in if needed. I told her I will speak to Dr. Weston and get back to her. documented in this encounter Plan of Treatment Not on file documented as of this encounter Visit Diagnoses Not on filedocumented in this encounter Care Teams Interior Decorator Painting Relationship Specialty Start Date End Date Tamia Perez PA [address] [place] [address] PCP - General Family Medicine 08/05/18 09/18/20 documented as of this encounter
--- OUTSIDE RECORDS SUMMARY | 2024-05-23 01:23 | XMS_ITS | Encounter Summary ---
Author Organization [facility] Address [facility] [place] [address] Care Team Providers Care Cloth Sander Name Role Phone AritaPriyanka bonilla Reynaldo HUMPHRIES Primary Care Provid er Encounter Details Date Type Department Care Team (Latest Contact Info) Description 07/12/2017 1:15 PM EST - 07/12/2017 11:59 PM EST Hospital En[place] [phone] Tamia Perez PA [address] [place] [address] Encounter for screening mammogram for breast cancer [...] x 3 weeks 15 g 1 03/15/2016 uxpdjvy-wmehtpdptkeyb-fs ffeine (EXCEDRIN MIGRAINE) 250-250-65 mg Tablet Take 1 [...] MAMMO SCREENING CAD AND KEVIN BILATERAL Routine 07/12/2017 1:28 PM EST Encounter for screening mammogram for breast cancer documented in this encounter Results * Mammo Screen CAD and Kevin Bilat (Generic) (07/12/2017 1:28 PM EST) Anatomical Region Laterality Modality Breast Bilateral Mammography Narrative 07/12/2017 3:01 PM EST BILATERAL MAMMOGRAPHY REASON FOR EXAM: Screening TECHNIQUE: [...] CONCLUSION: No mammographic evidence of malignancy. RECOMMENDATION: The [employer] and The Society of Breast Imaging recommend annual screening beginning at age 40 for the general female population. Screening should continue as long as a woman is in good health and is expected to live 10 more years or longer. All women should be familiar with the known benefits, limitations, and potential harms linked to breast cancer screening. They should also know how their breasts normally look and feel and report any breast changes to a health care provider right away. Some women - because of their family history, a genetic tendency, or certain other factors - should be screened with MRIs along with mammograms. (The number of women who fall into this category is very small.) The patient and health care provider should discuss the patient history and decide if earlier screening and breast MRI are appropriate. A result letter has been sent to this patient by the [facility]. BIRADS CATEGORY 1: NEGATIVE Tamia GAMBLE IMAntony MAMMO ORDERAB LES documented in this encounter Visit Diagnoses Diagnosis Encounter for screening mammogram for breast cancer documented in this encounter Care Teams Cloth Sander Relationship Specialty Start Date End Date Priyanka Arita, KRISTEL PCP - General 04/06/13 08/04/18 documented as of this encounter
--- OUTSIDE RECORDS SUMMARY | 2024-05-23 01:23 | XMS_ITS | Encounter Summary ---
Author Organization Formerly [facility] [place] [address] Care Team Providers Care Private Investigator Surveillance Name Role Phone Arita, Priyanka Jacobs APRN Primary Care Provid er Reason for Visit * Reason Onset Date Comments Questions 03/03/2015 Encounter Details Date Type Department Care Team (Late st Contact Info) Description 03/03/2015 [place] [id number] Arnol Mauro MD [facility] [place] [address] Questions Social History Tobacco Use Types Packs/Day Years [...] Encounter - Jyoti Mar RN - 03/03/2015 9:36 AM EDT Posh Eyes message sent to Dr. Mauro for advisement with pt request for MRI. Pt notified by cell phone that Dr. Mauro will be reviewing request and an RN will get back to her. Pt states that she would like MRI and [facility]. * Telephone Encounter - Art Villalobos - 03/03/2015 9:08 AM EDT Patient would like to get an MRI as she is concerned about her left knee. She wants to make sure there is not something else going on that can't be fixed with physical therapy. She would like to have this ordered without having to come back to clinic as she was just seen on 02/22/15 by Arabella DAVISON and the symptoms are the same. Please call her at [phone] cell phone. It is o.k. To leave a message. documented in this encounter Plan of Treatment Not on file documented as of this encounter Visit Diagnoses Not on filedocumented in this encounter Care Teams Private Investigator Surveillance Relationship Specialty Start Date End Date Priyanka Arita APRN PCP - General 04/06/13 08/04/18 documented as of this encounter
--- OUTSIDE RECORDS SUMMARY | 2024-05-23 01:23 | XMS_ITS | Encounter Summary ---
Author Organization [facility] [address] [place] [address] Care Team Providers Care Ground Instructor Basic Name Role Phone Tamia Perez Primary Care Provider [phone] Reason for Visit * Reason Onset Date Comments Medication Refill 08/24/2020 Encounter Details Date Type Department Care Team (Late st Contact Info) Description 08/24/2020 Refill Dermatology at [facility] [address] [place] [address] Liz Weston MD [facility] [place] [address] Lichen sclerosus Social History Tobacco Use Types [...] scleroderma documented in this encounter Care Teams Ground Instructor Basic Relationship Specialty Start Date End Date Tamia Perez PA [address] [place] [address] PCP - General Family Medicine 08/05/18 09/18/20 documented as of this encounter
--- OUTSIDE RECORDS SUMMARY | 2024-05-23 01:23 | XMS_ITS | Encounter Summary ---
Author Organization Formerly [facility] Address [facility] [place] [address] Care Team Providers Care Sheet Mill Supervisor Name Role Phone Juan J Priyanka Jacobs APRN Primary Care Provid er Encounter Details Date Type Department Care Team (Late st Contact Info) Description 06/28/2017 8:30 AM EST Office Visit Dermatology at [facility] [address] [place] [address] Liz Weston MD [facility] [address] [place] [address] Neoplasm of uncertain behavior of skin; Benign nevus of skin; History of atypical nevus Social History Tobacco Use Types Packs/Day [...] this encounter Patient Instructions * Patient Instructions* Suzanne Ennis - 06/28/2017 8:30 AM EST Instructions for Ondina: Treatment and Wound Care Instructions Your treatment today: You have had a shave removal of your skin, which is a removal of tissue for examination under a microscope. This wound will heal without stitches. Allow 3-6 weeks for the wound to heal. If bleeding occurs, hold firm pressure against the wound for 15 minutes. If bleeding continues, calls the office or go to your local emergency room. Please allow 1-2 weeks for the biopsy results to return. Your physician or nurse will contact you with the results by phone or letter; follow-up will be discussed at that time. Wound Care Instructions: You will need to keep the dressing placed over the wound dry and intact for 24 hours. Afterwards, perform the following wound care daily: ?? Wash your hands before changing the dressing. ?? Remove the bandage and clean the area with mild soap and water, then gently pat the area dry. ?? Apply a small amount of Vaseline to the area, then cover the wound with a band-aid. Change your dressing daily until the wound is fully healed. ?? A small amount of yellow drainage is part of normal healing. The area might appear as a small depression with redness around the edge of the wound. This is normal. ?? Please contact the office you you notice any of the following signs of infection: increased tenderness, pain, drainage, or redness that becomes hot or hard around the wound. If you have further questions or concerns, please call the office at [phone]. If it is after 5PM, or a holiday or weekend, please call [phone] and ask for the Vet Assistant on-call. documented in this encounter Progress Notes * Liz Weston MD - 06/28/2017 8:30 AM EST Images from the original note were not included. DERMATOLOGY ESTABLISHED PATIENT CLINIC NOTE Date of service: 06/28/2017 Ondina Fox : 1970 Provider: Liz Weston MD Preferred name: Ondina Preferred contact method with results: Home # Message okay: Yes SKIN HISTORY H/o dysplastic nevi - mild atypia History of sunburns on scalp History of blistering sunburns History of lots of sun exposure Tinea pedis Onychomycosis Chief Complaint: Red spot on the left nose. HPI Ondina Fox is a 47 y.o. female. Established patient to the clinic, but new to me. Last seen by Dr. Najera 03/15/2016. She is here this morning for a complete skin cancer examination, with a few areas of concern. She has a small red spot on the left nose, which she thinks has been there more than a year. She also has a brown spot on the bridge of the nose. Patient's fingers are nearly purple today. When asked, she states that they do this when cold. Current Outpatient Prescriptions on File Prior to Visit Medication Sig Dispense Refill ??? econazole nitrate 1 % Cream Apply topically BID x 3 weeks 15 g 1 ??? wicnzin-uliurteinbssi-hahyowxl (EXCEDRIN MIGRAINE) 250-250-65 mg Tablet Take 1 tablet by mouth every 6 hours as needed for Pain. ??? propranolol (INDERAL) 20 mg Tablet Take 20 mg by mouth as needed. 0 ??? Ibuprofen 200 mg Capsule Take by mouth as needed. No current facility-administered medications on file prior to visit. Allergies Allergen Reactions ??? Hibiclens [Chlorhexidine Gluconate] Other (See Comments) Possible reaction on day of surgery. Patient reports that entire leg turned red. 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 Type of exam: Complete skin exam including scalp, face, ears, neck, arms, hands, back, anterior trunk, buttocks, legs, feet. Genitalia not examined. Skin: Significant skin findings: 1. Central upper back just left of midline 3.0 mm pigmented macule with a hue of pink. Photo taken and charted with patient consent 2. Left alar crease: small pigmented macule. Right upper aspect of nasal sidewall: 2.0 mm pink papule. ASSESSMENT/PLAN: 1. Nevus R/O Atypia Procedure: Skin removal by shave technique Location: Central upper back just left of midline Discussed indications for procedure and expectations including risks and benefits. Verbal consent obtained. Skin prep with alcohol. Local anesthesia with 1% xylocaine, 1/100,000 epinephrine. The lesion was removed by shave technique to the level of the dermis. Hemostasis obtained (AlCl and/or electrocautery). There were no complications; the pt. tolerated the procedure well. The wound was dressed. Post-procedure expectations, wound care and activity restrictions were reviewed. 2. Benign Appearing Nevi -Patient reassured. -Will monitor for changes. -Patient advised to call if lesion grows, changes, bleeds spontaneously, or becomes painful. RTC June 2018 for 1 year full skin exam. Note initiated and routed to physician for review and change by: MANDIE MCLEANfletcher Joel Raymon is documenting this encounter acting as the scribe for and in the presence of Liz Weston MD I, Dr. Liz Weston, performed the visit service though my nurse assisted me in scribing the note. Ireviewed and edited this note above, a scribed service performed by my nurse. On closure of this note I agree with the accuracy of the documentation. Liz Weston MD Section of Dermatology [facility] documented in this encounter Plan of Treatment Scheduled Orders Name Type Priority Associated Diagnoses Orde r Schedule Skin Biopsy Dermatology Routine Neoplasm of uncertain behavior of skin Ordered: 06/28/2017 documented as of this encounter Procedures Procedure Name Priority Date/Time Associated Diagnosis Comments SPECIMEN TO PATHOLOGY (NON-OR) Routine 06/28/2017 9:34 AM EST Neoplasm of uncertain behavior of skin SURGICAL PATHOLOGY REPORT Routine 06/28/2017 9:34 AM EST documented in this encounter Results * Surgical Pathology Report (06/28/2017 9:34 AM EST) Final Diagnosis [id number] ? Location: [facility] The signing pathologist has (i) examined the relevant preparation(s) for the specimen(s) and (ii) rendered or confirmed the diagnosis(es). . ?Surgical Pathology DIAGNOSIS Skin, central upper back just left of midline, shave ?biopsy: - Moderately atypical compound dysplastic melanocytic nevus, extends near but does not involve the base of the specimen on the plane of section examined Electronically signed by: ??Dangelo Garay MD Verified: ??07/03/2017 ?Dermatopathol ogist Performed at: ??-[facility] Dept. of Pathology, [place], [place] ADDITIONAL STUDIES Multiple step-leveled sections are examined. CLINICAL INFORMATION Specimen Submitted: A - Skin, central upper back just left of midline, shave biopsy (1) Clinical History: 3.0 mm pigmented macule with hue of pink Clinical Diagnosis: Nevus, rule out atypia SPECIMEN PROCESSING A - Labeled/Fixativ e: Patient demographics, formalin. Quantity/Size: Single, 0.9 x 0.8 x 0.1 cm. Tissue Description: Shave of lambert-white skin with a central 0.4 cm and a dark brown macule. Sections/Proces sing: The specimen is inked, sectioned and entirely submitted with the tips appearing in cassette (1) and the body in cassette (2). (T2) ??ejr 07/03/2017 4:37 PM EST [facility] SPECIMEN FROM SKIN / Unknown 06/28/2017 9:34 AM EST 06/28/2017 9:34 AM EST Liz Weston MD PATHOLOGY/CYTOLOGY [place] Performing Organization Address [facility]/ZIP Co de Phone Number [facility] [place] [address] * Specimen to Pathology (NON-OR) (06/28/2017 9:34 AM EST) AP Specimen 06/28/2017 9:34 AM EST 06/28/2017 1:10 PM EST Narrative [facility] - 06/28/2017 1:10 PM EST Specimen requisition ordered. ??Separate Pathology report to follow Resulting Agency Comment Spec In Lab Liz Weston MD PATHOLOGY/CYTOLOGY [facility] [place] Performing Organization Address [facility]/ZIP Co de Phone Number [facility] [place] [address] documented in this encounter Visit Diagnoses Diagnosis Neoplasm of uncertain behavior of skin Benign nevus of skin Benign neoplasm of skin, site unspecified History of atypical nevus Personal history of diseases of skin and subcutaneous tissue documented in this encounter Care Teams Sheet Mill Supervisor Relationship Specialty Start Date End Date Priyanka Arita, PACKAGING SALES CONSULTANT PCP - General 04/06/13 08/04/18 documented as of this encounter
--- OUTSIDE RECORDS SUMMARY | 2024-05-23 01:23 | XMS_ITS | Encounter Summary ---
Author Organization [facility] Address [facility] [place] [address] Care Team Providers Care Traffic Counter Name Role Phone Tamia Perez Primary Care Provider [phone] Encounter Details Date Type Department Care Team (Late st Contact Info) Description 08/15/2018 Telephone Dermatology at [facility] [address] [place] [address] Liz Weston MD [facility] [place] [address] Social History Tobacco Use Types Packs/Day Years [...] encounter Miscellaneous Notes * Telephone Encounter - Dina Guthrie [facility] - 08/18/2018 4:26 PM EST Left a message that the biopsy results showed a benign mole and there is no further treatment necessary at this time. Pt has been worried about these results and was also wondering whether or not sheneeds an appointment yearly or if she should schedule with her PCP. I noted that it is up to the patient whether or not they are comfortable with there PCP checking over there skin. I also noted thatthe patient is in our system for a year and that they should receive a call from us to schedule heryearly visit once the schedule opens up. I also noted that the patient can call us back with any further questions. documented in this encounter Plan of Treatment Not on file documented as of this encounter Visit Diagnoses Not on filedocumented in this encounter Care Teams Traffic Counter Relationship Specialty Start Date End Date Tamia Perez PA [address] [place] [address] PCP - General Family Medicine 08/05/18 09/18/20 documented as of this encounter
--- OUTSIDE RECORDS SUMMARY | 2024-05-23 01:23 | XMS_ITS | Clinical Summary ---
Author Organization [facility] Address [facility] [place] [address] Care Team Providers Care Bullet Lubricating Machine Operator Name Role Phone Nadya Mejia APRN Primary Care Provider Allergies Active Allergy Reactions Criticality Noted Date Comments Betamethasone, Augmented Rash 08/24/2021 Topical reaction, ? Allergy Chlorhexidine Gluconate Other (See Comments) Medium Possible reaction on day of surgery. Patient reports that entire leg turned red. Medications Medication Sig Dispensed Refills Start Date End Date Status propranolol (INDERAL) 20 mg Tablet Take 20 mg by mouth as needed. 0 11/16/2014 Active Ibuprofen 200 mg Capsule Take by mouth as needed. Active aspirin-acetaminophen -caffeine (EXCEDRIN MIGRAINE) 250-250-65 mg Tablet Take 1 tablet by mouth every 6 hours as needed for Pain. Active econazole nitrate 1 % CreamIndications:Tiffany a pedis of both feet Apply topically BID x 3 weeks 15 g 1 03/15/2016 Active Additional Information Patient not taking.Reported on 11/22/2023 augmented betamethasone dipropionate (DIPROLENE-AF) 0.05 % OintmentIndications:L ichen sclerosus Apply to the affected areas twice daily for 14 days. Take two weeks off. Repeat this if needed for flares 45 g 1 08/25/2020 Active Additional Information Patient not taking.Reported on 11/22/2023 clobetasoL (TEMOVATE) 0.05 % Ointment Apply topically 2 times daily. Use for 2-3 weeks twice daily, then change to once a day on Saturday, Saturday and Saturday. 30 g 2 08/26/2020 Active Additional Information Patient not taking.Reported on 11/22/2023 desoximetasone (TOPICORT) 0.25 % OintmentIndications:P soriasis Apply topically to affected area(s) on the right knee twice daily for up to 2 weeks. Take 1 week off and then repeat cycle as needed. Apply once to twice weekly to the vulva for maintenance or twice daily for one to two weeks for flares. 100 g 2 08/24/2021 Active Additional Information Patient not taking.Reported on 11/22/2023 desoximetasone (TOPICORT) 0.25 % OintmentIndications:L ichen sclerosus Apply externally to the vulva twice daily once weekly for maintenance. With flares, increase to twice daily for 1-2 weeks. 60 g 1 09/19/2022 Active Active Problems Problem Noted Date Diagnosed Date Medial meniscus, posterior h orn derangement left s/p arthroscopic debridement 12/23/14 11/17/2014 Immunizations Name Administration Dates Next Due Hepatitis A/B (TwinRix) 10/22/2008,09/14/2008 Tdap (Adacel, Boostrix) 09/14/2008 Typhoid Live, Oral 09/14/2008 Family History Medical History Relation Comments Heart Disease Father Breast Cancer Mother Cancer Paternal Aunt Heart Disease Paternal Aunt Heart Disease Paternal Uncle Relation Status Comments Father Mother Paternal Aunt Paternal Uncle Social History Tobacco Use Types Packs/Day Years Used Date Smoking Tobacco: Never Smokeless Tobacco: Never Alcohol Use Standard Drinks/Week Comments Yes 0 (1 standard drink = 0.6 oz pur e alcohol) less than 1 per month Sex and Gender Information Value Date Recorded Sex Assigned at Not on file Gender Identity Not on file Sexual Orientation Not on file Last Filed Vital Signs Vital Sign Reading Time Taken Comments Blood Pressure 114/76 02/22/2015 4:21 PM EDT Pulse 61 02/22/2015 4:21 PM EDT Temperature 36.7 ??C (98 ??F) 12/29/2014 9:46 AM EDT Respiratory Rate 20 12/23/2014 10:00 AM EDT Oxygen Saturation 100% 12/23/2014 10:00 AM EDT Inhaled Oxygen Concentration - - Weight 69.9 kg (154 lb) 02/22/2015 4:21 PM EDT f ully clothed Height 165.1 cm (5' 5) 02/22/2015 4:21 PM EDT v erbal Body Mass Index 25.63 02/22/2015 4:21 PM EDT Plan of Treatment Health Maintenance Due Date Last Done Comments CT Colonography 1970 Colonoscopy 1968 Colorectal Cancer Screening 1970 FIT DNA 1968 FIT 1970 Sigmoidoscopy (10 year) with FIT yearly 1970 Sigmoidoscopy 1970 HIV screen 1986 Hepatitis C Screening 1986 HPV test 1998 PAP Smear 1998 Breast Cancer Share Decision Needed 2008 Hepatitis B vaccine (0-59 yrs) (3) 03/24/20092008, 09/14/2008 Zoster vaccine (1 of 2) 2018 Tetanus/Diphtheria/Pertussis Vaccines (2 - Td or Tdap) 09/14/2018 09/14/2008 Advance Directive 2023 Covid-19 Vaccine (1 - 2023-2 5 season) 2024 Influenza (Flu) vaccine (1 o f 1 - Influenza standard series) 02/23/2024 Breast Cancer screening 10/24/2025 10/25/19 24, 09/19/2022, 08/24/2021, Additional history exists Procedures Procedure Name Priority Date/Time Associated Diagnosis Comments MAMMO SCREENING CAD AND KEVIN BILATERAL Routine 10/25/2023 11:18 AM EDT Encounter for screening mammogram for breast cancer from Last 3 Months or Most Recently Relevant to Health Maintenance Results * Mammo Screening Cad and Kevin Bilateral (10/25/2023 11:18 AM EDT) WORKSTATION ID [id number] 1 DH RAD Anatomical [...] who have questions please contact the health long term care pharmacist that requested your imaging first. ? Narrative 10/25/2023 5:28 PM EDT EXAMINATION: MAMMO [...] of distortion. Stable appearance. Nadya Mejia APRN IMAntony MAMMO ORDERABLE S from Last 3 Months or Most Recently Relevant to Health Maintenance Care Teams Bullet Lubricating Machine Operator Relationship Specialty Start Date End Date Nadya Mejia APRN [address] [place] [address] PCP - General Family Medicine 07/27/22
--- OUTSIDE RECORDS SUMMARY | 2024-05-23 01:23 | XMS_ITS | Encounter Summary ---
Author Organization [facility] Address [facility] [address] Care Team Providers Care Awnings Mechanic Name Role Phone Tamia Perez Primary Care Provider [phone] Encounter Details Date Type Department Care Team (Latest Contact Info) Description 08/05/2018 1:48 PM EST - 08/05/2018 11:59 PM EST Hospital Encounter Mammography/[place] [id number] Tamia Perez PA [facility] [address] [facility] [address] [place] [address] Encounter for breast cancer screening other than mammogram Discharge Disposition: Home Social History Tobacco [...] x 3 weeks 15 g 1 03/15/2016 nsekprr-dhnpktpanfoyg-si ffeine (EXCEDRIN MIGRAINE) 250-250-65 mg Tablet Take [...] MAMMO SCREENING CAD AND KEVIN BILATERAL Routine 08/05/2018 2:31 PM EST Encounter for breast cancer screening other than mammogram documented in this encounter Results * Mammo Screening Cad and Kevin Bilateral (08/05/2018 2:31 PM EST) Anatomical Region Laterality Modality Breast Bilateral Mammography Narrative 08/06/2018 10:05 AM EST BILATERAL MAMMOGRAPHY REASON FOR EXAM: Screening [...] CONCLUSION: No mammographic evidence of malignancy. RECOMMENDATION: Medical organizations agree that annual screening mammography beginning at age 40 saves the most lives. The risks of screening are negligible compared to dying from breast cancer or suffering from more aggressive treatment required when detected at a later stage. No woman is at low risk for breast cancer. Some women, because of their family history, a genetic tendency, or certain other factors, should be screened with breast MRI along with mammograms. (The number of women who fall into this category is very small). The patient and health care provider should discuss the patient history and decide if earlier screening and breast MRI are appropriate. Screening should continue as long as a woman is in good health and is expected to live 10 years or longer. Screening mammography may not detect 10-15% of breast cancers. Women should report any breast changes to a health care provider right away. A result letter has been sent to this patient by the [facility]. BIRADS CATEGORY 1: NEGATIVE Tamia GAMBLE IMG MAMMO ORDERAB LES documented in this encounter Visit Diagnoses Diagnosis Encounter for breast cancer screening other than mammogram Breast screening, unspecified documented in this encounter Care Teams Awnings Mechanic Relationship Specialty Start Date End Date Tamia Perez PA [address] [place] [address] PCP - General Family Medicine 08/05/18 09/18/20 documented as of this encounter
--- OUTSIDE RECORDS SUMMARY | 2024-05-23 01:23 | XMS_ITS | Encounter Summary ---
Author Organization [facility] Address [address] [facility] [place] [address] Care Team Providers Care Certified Hand Therapist Name Role Phone Tamia Perez Primary Care Provider [phone] Encounter Details Date Type Department Care Team (Latest Contact Info) Description 08/18/2019 3:29 PM EST - 08/18/2019 11:59 PM EST Hospital Encounter XRay at [address] [place] [address] Tamia Perez PA [address] [facility] [address] [place] [address] Chronic pain of both knees Discharge Disposition: Home Social History Tobacco Use [...] x 3 weeks 15 g 1 03/15/2016 fyiwilf-sxxznmwwpocpx-rdh feine (EXCEDRIN MIGRAINE) 250-250-65 mg Tablet Take 1 tablet by mouth every 6 hours as needed for Pain. propranolol (INDERAL) 20 mg Tablet Take 20 mg by mouth as needed. 0 11/16/2014 Ibuprofen 200 mg Capsule Take by mouth as needed. augmented betamethasone dipropionate (DIPROLENE-AF) 0.05 % Ointment Apply 1 each topically 2 times daily. Use up to two weeks, then stop. 15 g 05/20/2019 08/24/2019 documented as of this encounter Plan of Treatment Not on file documented as of this encounter Procedures Procedure Name Priority Date/Time Associated Diagnosis Comments XR KNEE AP AND LAT BILAT Routine 08/18/2019 3:43 PM EST Chronic pain of both knees documented in this encounter Results * XR Knee 1-2 Views Bilat (Generic) (08/18/2019 3:43 PM EST) Anatomical Region Laterality Modality Knee Bilateral Digital Radiogra phy Impressions 08/18/2019 3:56 PM EST No acute fracture or dislocation. No significant joint effusion. Mild medial joint space narrowing as described. Thank you for letting us participate in the care of this patient. For questions regarding this report, please contact the number below. ? 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 Feeling more impact with running. ??No acute injury or acute pain with running. ??History seems consistent with osteoarthritis. please image TECHNIQUE: 2 views BILATERAL knee AP standing and bilateral lateral views of the knees COMPARISON: None FINDINGS: RIGHT knee: Mild medial joint space narrowing. No significant marginal osteophytes and no tibial spine spurring. There is no significant degenerative change. Minimal patellofemoral joint space narrowing. No acute fracture or dislocation. LEFT knee: Medial joint space narrowing and small marginal osteophytes are noted off the LEFT medial femur and LEFT medial tibial plateau. No significant joint effusion. Minimal patellofemoral joint degenerative change. 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 No acute injury or acute pain with running.History seems consistent with osteoarthritis. please image TECHNIQUE: 2 views BILATERAL knee AP standing and bilateral lateral views of theknees COMPARISON: None FINDINGS: RIGHT knee: Mild medial joint space narrowing. No significant marginal osteophytes and no tibial spine spurring. There is no significantdegenerative change. Minimal patellofemoral joint space narrowing. No acute fractureor dislocation. LEFT knee: Medial joint space narrowing and small marginal osteophytes arenoted off the LEFT medial femur and LEFT medial tibial plateau. No significantjoint effusion. Minimal patellofemoral joint degenerative change. IMPRESSION No acute fracture or dislocation. No significant joint effusion. Mildmedial joint space narrowing as described. Thank you for letting us participate in the care of this patient. Forquestions regarding this report, please contact the number below. Tamia GAMBLE IMG DX ORDERABLES documented in this encounter Visit Diagnoses Diagnosis Chronic pain of both knees documented in this encounter Care Teams Certified Hand Therapist Relationship Specialty Start Date End Date Tamia Perez PA [facility] [address] [address] PCP - General Family Medicine 08/05/18 09/18/20 documented as of this encounter
--- OUTSIDE RECORDS SUMMARY | 2024-05-23 01:23 | XMS_ITS | Encounter Summary ---
Author Organization [facility] [place] [address] Care Team Providers Care Vice President Industrial Relations Name Role Phone Nadya Mejia APRN Primary Care Provider [phone] Reason for Visit * Reason Comments Skin Cancer Examination Encounter Details Date Type Department Care Team (Late st Contact Info) Description 09/19/2022 8:45 AM EDT Office Visit Dermatology at [facility] [address] [place] [address] Starla Ballard MD [facility] [address] [place] [address] Lichen sclerosus; History of dysplastic nevus; Family history of melanoma; Lentigo; Lentigines Social History Tobacco Use Types Packs/Day Years [...] as of this encounter Progress Notes * Starla Ballard MD - 09/19/2022 8:45 AM EDT Images from the original note were not included. DEPARTMENT OF DERMATOLOGY Medical Dermatology Clinic Provider: STARLA BALLARD MD Patient's preferred name Ondina Preferred contact method for results [x]?Phone []?myD-H []?Letter Detailed phone message OK? 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 Pre-Procedure Questions Details Allergy to lidocaine, epinephrine, Dermabond, chlorhexidine, or adhesives Yes: chlorhexidine Bleeding disorder or blood thinners N Pacemaker, defibrillator, deep brain stimulator, cochlear implant N ?? History of Present Illness: Ondina Fox is a 52 y.o. Patient returns to clinic today for a full skin exam with the following concerns: - Patient denies any specific skin concerns today; no lesions that are new, changing or symptomatic. - Requests refill of desoximetasone, which she uses as needed (~once monthly with pruritus). Questions whether she should use this more regularly. Last visit at Dermatology: 08/24/2021 Last visit with this provider: 08/24/2021 Medications: Reviewed in eD-H Allergies: Reviewed in [...] the exception ofthe findings below. Assessment/Plan A. Lichen Sclerosus - Atrophy of the labia minora with white atrophic plaque on the inferior labia and perineum. - Discussed that this can lead to scarring over time if untreated, which can lead to functional impairment. There is a slightly increased risk of a skin cancer in the area due to chronic inflammation. - Continue and refill Rx desoximetasone 0.25% ointment: Apply externally to the vulva twice daily once weekly for maintenance. With flares, increase to twice daily for 1-2 weeks. - Instructed patient to contact clinic if she develops any new lesions/lumps/bumps on the vulva. B. Lentigo - 5 mm brown macule on the left bridge of the nose. - Unchanged from previous photos (08/24/2019 and 08/24/2021). - Reviewed potential cosmetic treatments, including laser. Can consider in the future. C. Lentigines - Scattered light-brown, evenly pigmented, well-demarcated macules on sun-exposed areas of the trunk and extremities, including on the left shoulder. - No worrisome pigmented lesions. Discussed benign nature of lesions and provided reassurance. Willcontinue to monitor. D. 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 - No evidence of recurrence; will continue to monitor. E. Family History of Melanoma - Given the increased risk factor, I recommend that they have a full skin exam every year. Other: ??? Sun protection discussed (protective clothing and SPF30+ broad-spectrum sunscreen) RTC: 1 year for FSE []Note routed to medical secretary [x]Recall placed in scheduling system []Appointment scheduled at checkout Scribe attestation: Fanny Martin CMA has performed the documentation for this encounter in the presence of and acting as a scribe for STARLA BALLARD MD. I performed the above scribed service and agree with the accuracy of the documentation in this encounter. Reviewed and signed by: STARLA BALLARD MD Dermatology [facility] documented in this encounter Plan of Treatment Not on file documented as of this encounter Visit Diagnoses Diagnosis Lichen sclerosus Circumscribed scleroderma History of dysplastic nevus Personal history of diseases of skin and subcutaneous tissue Family history of melanoma Family history of other specified malignant neoplasm Lentigo Other dyschromia Lentigines Other dyschromia documented in this encounter Care Teams Vice President Industrial Relations Relationship Specialty Start Date End Date Nadya Mejia APRN [address] [address] PCP - General Family Medicine 07/27/22 documented as of this encounter
--- OUTSIDE RECORDS SUMMARY | 2024-05-23 01:23 | XMS_ITS | Encounter Summary ---
Author Organization [facility] Address [facility] [place] [address] Care Team Providers Care Exchange Architect Name Role Phone Tamia Perez Primary Care Provider [phone] Encounter Details Date Type Department Care Team (Late st Contact Info) Description 06/03/2019 Telephone Dermatology at [facility] [address] [place] [address] Liz Weston MD [facility] [place] [address] Social History Tobacco Use Types Packs/Day Years [...] * Telephone Encounter - Katie Cruz - 06/03/2019 4:28 PM EST Patient Ondina Fox called about the cream she is using. She has been using twcie a day for 2 weeks and she would like clarification on the final directions. Is she suppose to use 3 times a week? That is different then what is on the instructions on the cream. Please call [phone] and you may leave a detailed message if she does not answer. Thank you, Kaleigh documented in this encounter Plan of Treatment Not on file documented as of this encounter Visit Diagnoses Not on filedocumented in this encounter Care Teams Exchange Architect Relationship Specialty Start Date End Date Tamia Perez PA [address] [place] [address] PCP - General Family Medicine 08/05/18 09/18/20 documented as of this encounter
--- OUTSIDE RECORDS SUMMARY | 2024-05-23 01:23 | XMS_ITS | Encounter Summary ---
Author Organization [facility] Address [facility] [place] [address] Care Team Providers Care Catering Director Name Role Phone Juan J Priyanka Jacobs APRN Primary Care Provid er Reason for Visit * Reason Onset Date Comments Questions 02/17/2015 Encounter Details Date Type Department Care Team (Late st Contact Info) Description 02/17/2015 Telephone [place] [address] Arnol Mauro MD [facility] [place] [address] Questions Social History Tobacco Use Types Packs/Day [...] encounter Miscellaneous Notes * Telephone Encounter - Marilee Bucio RN - 02/17/2015 2:04 PM EDT Ondina called and voice mail message left that we would not order an MRI without seeing her. She was on a 2 weeks backpacking trip in [place] followed by a long plane ride home. I left message if she would like to be seen sooner to call the call center this afternoon and if Luz Shin still has availability for 02/23 to make an appt. Instructed to ice the leg and elevate her foot above her heart. * Telephone Encounter - Art Villalobos - 02/17/2015 1:21 PM EDT Patient is calling asking if an MRI can be scheduled. Please advise. She is still having pain with walking or putting it in the kneeling position and thinks something is wrong in there and the pain has increased to more than before the surgery. It feels like she has no support on her knee when she is walking. She walks with a limp. She can be reached at home today. [phone] documented in this encounter Plan of Treatment Not on file documented as of this encounter Visit Diagnoses Not on filedocumented in this encounter Care Teams Catering Director Relationship Specialty Start Date End Date Priyanka Arita APRN PCP - General 04/06/13 08/04/18 documented as of this encounter
--- OUTSIDE RECORDS SUMMARY | 2024-05-23 01:23 | XMS_ITS | Encounter Summary ---
Author [place] [address] Care Team Providers Care Oil Expeller Operator Name Role Phone Marina Henley MD Primary Care Provider Unava ilable Reason for Referral * Diagnostic Test (Routine) - Closed Specialty Diagnoses / Procedures Referred By Kristi good Referred To Contact Radiology Diagnoses Encounter for screening mammogram for breast cancer Procedures Mammo Screening Cad and Kevin Bilateral Nadya Mejia APRN [address] [address] [facility] [place] [address] Referral ID Status Reason Start Date Expiration Date V isits Requested Visits Authorized [id number] Closed Specialty Service Requested 04/13/2021 10/12/2022 1 1 Reason for Visit * Diagnostic Test (Routine) - Closed Specialty Diagnoses / Procedures Referred By Kristi good Referred To Contact Radiology Diagnoses Encounter for screening mammogram for breast cancer Procedures Mammo Screening Cad and Kevin Bilateral Nadya Mejia APRN [address] [place] [address] [facility] [place] [address] Referral ID Status Reason Start Date Expiration Date V isits Requested Visits Authorized [id number] Closed Specialty Service Requested 04/13/2021 10/12/2022 1 1 Encounter Details Date Type Department Care Team (Latest Contact Info) Description 08/24/2021 8:32 AM EST - 08/24/2021 11:59 PM EST Hospital Encounter Mammography/[place] [address] Nadya Mejia, BASKET HAND BRAIDER [address] [place] [address] Encounter for screening mammogram for breast cancer [...] Date End Date desoximetasone (TOPICORT) 0.25 % OintmentIndications:Psor iasis Apply topically to affected area(s) on the [...] 08/26/2020 augmented betamethasone dipropionate (DIPROLENE-AF) 0.05 % OintmentIndications:Lich en sclerosus Apply to the affected areas twice daily for 14 days. Take two weeks off. Repeat this if needed for flares 45 g 1 08/25/2020 econazole nitrate 1 % CreamIndications:Tinea pedis of both feet Apply topically BID x 3 weeks 15 g 1 03/15/2016 ilckksv-qznrktpvpoqui-af ffeine (EXCEDRIN MIGRAINE) 250-250-65 mg Tablet Take 1 tablet by mouth every 6 hours as needed for Pain. propranolol (INDERAL) 20 mg Tablet Take 20 mg by mouth as needed. 0 11/16/2014 Ibuprofen 200 mg Capsule Take by mouth as needed. desoximetasone (TOPICORT) 0.25 % Ointment Apply twice a day for 2 weeks, then twice a day on M/W/F 60 g 09/19/2020 09/19/2022 documented as of this encounter Plan of Treatment Not on file documented as of this encounter Procedures Procedure Name Priority Date/Time Associated Diagnosis Comments MAMMO SCREENING CAD AND KEVIN BILATERAL Routine 08/24/2021 9:06 AM EST Encounter for screening mammogram for breast cancer documented in this encounter Results * Mammo Screening Cad and Kevin Bilateral (08/24/2021 9:06 AM EST) Anatomical Region Laterality Modality Breast Bilateral Mammography Narrative 08/24/2021 9:46 AM EST BILATERAL MAMMOGRAPHY REASON FOR EXAM: Screening TECHNIQUE: CC and MLO views were obtained of each breast using standard 2-D mammography as well as 3-D tomosynthesis. Computer aided detection was used. This is compared with prior images. FINDINGS: There are scattered areas of fibroglandular density. There are no suspicious microcalcifications, masses, or [...] BIRADS CATEGORY 1: NEGATIVE Electronically signed by: Rina Dennis MD Nadya S Mejia BASKET HAND BRAIDER IMG MAMMO ORDERABLE S documented in this encounter Visit Diagnoses Diagnosis Encounter for screening mammogram for breast cancer documented in this encounter Care Teams Oil Expeller Operator Relationship Specialty Start Date End Date Marina Henley MD PCP - General General Internal Medicine 11/16/20 07/26/22 documented as of this encounter
--- OUTSIDE RECORDS SUMMARY | 2024-05-23 01:23 | XMS_ITS | Encounter Summary ---
Author Organization [facility] Address [facility] [place] [address] Care Team Providers Care Marine Fire Fighter Name Role Phone Tamia Perez Primary Care Provider [phone] Encounter Details Date Type Department Care Team (Late st Contact Info) Description 08/26/2020 1:00 PM EST Office Visit Dermatology at [facility] [address] [place] [address] Sandra Hemphill MD [facility] [address] [place] [address] Lichenoid dermatitis Social History Tobacco Use Types Packs/Day Years [...] Progress Notes * Sandra Hemphill MD - 08/26/2020 1:00 PM EST Images from the original note were not included. DERMATOLOGY AT [facility] Dermatology At [facility] [address] [facility] [address] FOLLOW-UP Date of service: 08/26/2020 Ondina Seth Fox : 1970 Provider: Sandra Hemphill MD Preferred name:??Ondina Preferred contact method with results:??Home # Message okay:??Yes I give Dr. Hemphill's team permission to discuss my results with: SKIN HISTORY: H/o dysplastic nevi - mild atypia History of sunburns on scalp History of blistering sunburns History of lots of sun exposure ?? -06/28/17:??central upper back just left of midline, shave biopsy: Moderately atypical compound dysplastic melanocytic nevus, Lichen Sclerosis ?? Family hx of melanoma, sister ? Chief Complaint: Lichen sclerosis follow up History of Present Illness Ondina Fox is a 50 y.o. year old female. Established patient, last seen by myself on 03/14/2020. Here today for a lichen sclerosis follow up. Has had an increase recently in itching, so started using betamethasone ointment bid; the vulva became more sensitive on the right. Has also tried some topical KY jelly. No other topicals. Medical History Noncontributory Allergies Hibiclens [chlorhexidine gluconate] Medications Current Outpatient Medications Medication Sig Dispense Refill ??? augmented betamethasone dipropionate (DIPROLENE-AF) 0.05 % Ointment Apply to the affected areastwice daily for 14 days. Take two weeks off. Repeat this if needed for flares 45 g 1 ??? econazole nitrate 1 % Cream Apply topically BID x 3 weeks 15 g 1 ??? fkpcyrt-kvjflhekqczdn-apqlksss (EXCEDRIN MIGRAINE) 250-250-65 mg Tablet Take 1 tablet by mouth every 6 hours as needed for Pain. ??? propranolol (INDERAL) 20 mg Tablet Take 20 mg by mouth as needed. 0 ??? Ibuprofen 200 mg Capsule Take by mouth as needed. No current facility-administered medications for this visit. Social History Lives in [place], [place] ?? Family History Sister, Melanoma (on the face) Review of Systems General: feeling well Skin: denies other skin complaints Examination General: NAD, pleasant, cooperative. Type of exam: vulvar only Significant skin findings: ?? White patches bilateral labial major and minora, confluent ?? Resorption of much of the labia minora ?? Small 4-5 mm shallow erosion on the right labia minora sulcus laterally ?? HAYES negative ASSESSMENT/PLAN: Lichen sclerosis- flaring. No evidence of carlos infection. Sensitivity likely related to small erosion. This is NOT herpetiform. Advised: Try clobetasol ointment bid for 2-3 weeks on affected skin, then change to 3x per week (ie M/W/). I discussed xylocaine topically for sensitivity if needed but she declined at this time. Plan to reassess on her return visit at end of the month. I performed the services which were documented by the scribe, and I agree with the accuracy of the documentation in this encounter. SANDRA HEMPHILL MD. Sandra Hemphill MD Professor of Dermatology Department of Dermatology [facility] documented in this encounter Plan of Treatment Not on file documented as of this encounter Visit Diagnoses Diagnosis Lichenoid dermatitis Contact dermatitis and other eczema, due to unspecified cause documented in this encounter Care Teams Marine Fire Fighter Relationship Specialty Start Date End Date Tamia Perez PA [address] [address] PCP - General Family Medicine 08/05/18 09/18/20 documented as of this encounter
[2024-05-23 01:24] VITALS: BP 156/73; PULSE 74; RESP 17; TEMP 36.3; O2SAT 99
--- OUTSIDE RECORDS SUMMARY | 2024-05-23 01:24 | XMS_ITS | Encounter Summary ---
Author Organization [facility] Address [facility] [place] [address] Care Team Providers Care Tie Layer Name Role Phone CarolinaPriyanka bonilla Reynaldo HUMPHRIES Primary Care Provid er Encounter Details Date Type Department Care Team (Late st Contact Info) Description 12/23/2014 8:00 AM EDT - 12/23/2014 9:45 AM EDT Surgery [place] [address] Arnol Mauro MD [facility] [place] [address] ARTHROSCOPY KNEE, MENISCECTOMY SINGLE W/ SHAVING (WRVU 7.03) Social History Tobacco Use Types Packs/Day Years [...] Sign Reading Time Taken Comments Blood Pressure 99/44 12/23/2014 9:45 AM EDT Pulse 68 12/23/2014 9:45 AM EDT Temperature 36.2 ??C (97.2 ??F) 12/23/2014 9:09 AM ED T Respiratory Rate 18 12/23/2014 9:45 AM EDT Oxygen Saturation 100% 12/23/2014 9:45 AM EDT Inhaled Oxygen Concentration - - Weight 69.4 kg (153 lb) 12/23/2014 6:56 AM EDT Height 166.4 cm (5' 5.5) 12/23/2014 6:56 AM EDT Body Mass Index 25.07 12/23/2014 6:56 AM EDT documented in this encounter Discharge Instructions * Discharge Instructions* Genesis Liang RN - 12/23/2014 9:21 AM EDT General Anesthesia Discharge Instructions Go home and rest. You may be sleepy for several hours. Take it easy as sudden position changes may cause nausea and/or dizziness. Use caution on stairs. Do not smoke if you are alone. Follow a light to regular diet as tolerated today. If nausea occurs, start with clear liquids, and progress slowly to a regular diet. Do not drive, operate machinery, drink alcoholic beverages or make any legal decisions after havinggeneral anesthesia. The medications given change your reaction time and alter your judgement. IV site -- slight redness is normal, you can use warm compresses. If tenderness and redness increases or foul drainage occurs, please contact your M.D. Patients who have had endotracheal tubes/LMA (tubes used by the anesthesia staff to ensure a safe airway during your operation) may have a sore throat. This is normal and cold liquids or soothing lozengers will help ease this discomfort. Narcotic pain medications can cause constipation, please ask the surgeons office what they recommend for prevention of this. Some non-pharmaceutical means of constipation prevention include increasing intake of fluids, eating more fruits and vegetables as well as fruit juices. If you are uncomfortable and/or unable to urinate within 8 hours of discharge and it is before 5 pm, call your physician. If it is after 5pm go to the closest emergency room or call the hospital glass ribbon machine operator at [phone] and ask for physician brazer helper induction covering for your physician. Questions or problems after 5pm or on a weekend: Call the [facility] glass ribbon machine operator at and ask for the physician brazer helper induction covering for your doctor. NO Ibuprofen/Advil Aleve until after 6pm today . You received 1000 mg of acetaminophen at 7:15 AM. Your next dose should not be taken before 3:15 PMToday. YOU RECEIVED GABAPENTIN 600MG AT 7:15 AM SCOPOLAMINE PATCH DISCHARGE INSTRUCTIONS You are wearing a scopolamine patch. This is a medication patch used to prevent and treat nausea and vomiting after surgery. The patch is located: Behind the: Right ear. Please follow these instructions while you are wearing the patch. Try not to touch the patch. ??? If you do touch the patch, wash your hands right away. Make sure to remove all traces of medication from your hands. ??? If the medication gets on your hands and then you touch your eyes, your vision may become blurry or your pupils may widen. These are both normal and temporary reactions; they will go away shortly. You may remove the patch as early as:___7:15 AM on ___12/24/14 but must remove it no later than____7:15 AM on 12/26/14 . ??? There will still be some active ingredients on the patch, so fold it in half (with the sticky sides together) and throw it in the trash. This will help prevent others from coming into contact with it. ??? After removing the patch, carefully wash your hands and behind your ear (or wherever the patch was placed) with soap and water. If you have not urinated in 6-8 hours after your surgery, remove the patch and call your surgeon. * Patient Instructions* Rome Frankel Oscar - 12/23/2014 7:53 AM EDT ORTHOPAEDIC SURGERY DISCHARGE INSTRUCTIONS AFTER KNEE ARTHROSCOPY Surgery: Left Knee Arthroscopy, Arthroscopic debridement Activity level: Weight bearing as tolerated with crutches Diet: Regular Medications: Vicodin As prescribed Aspirin 325mg twice a day for 14 days Shower/Bath: Keep your dressing on for 72 hours. At that time you may remove the dressing and shower. Do Not take a bath or submerge your wounds for at least 2 weeks. Wound Care: Keep your incisions covered with a sterile dressing until follow up. Call your doctor if you develop: ??? Fevers greater than 100.5 ??? Severe nausea or vomiting ??? Increasing pain not controlled by pain medications ??? Increasing redness or drainage from incisions ??? Change in sensation Contact Information: Your orthopaedic surgeon Dr. Muaro at [phone] with any questions or concerns If it is after 5:00PM on a weekday or a weekend and it is of an urgent nature please call [phone] and ask for the on-call orthopaedic resident. Your Primary Care Physician: PRIYANKA CAROLINA APRN [phone] Future Appointments Date Time Provider Department Center 12/29/2014 9:30 AM Arabella Shin APRN [facility] None documented in this encounter Medications at Time of Discharge Medication Sig Dispensed Refills Start Date End Date propranolol (INDERAL) 20 mg Tablet Take 20 mg by mouth as needed. 0 11/16/2014 Ibuprofen 200 mg Capsule Take by mouth as needed. aspirin 325 mg Tablet Take 1 tablet by mouth 2 times daily for 14 days. 28 tablet 0 12/23/2014 01/06/2015 HYDROcodone-acetaminoph en 5-325 mg Tablet Take 1-2 tablets by mouth every 4 hours as needed for Pain. 30 tablet 0 12/23/2014 12/29/2014 documented as of this encounter H&P Notes * Arnol Mauro MD - 12/22/2014 4:07 PM EDT The patient's history and physical exam have been reviewed and completed. There has been no interval change from that of the pre-operative history and physical exam done within the last 30 days. Source Note - Arnol Mauro MD - 12/22/2014 4:07 PM EDT Patient Name: Ondina Fox Patient Age: 44 y.o. Birthdate: 1970 Admit date: (Not on file) Attending Physician: Arnol Mauro MD See scanned document for pre-procedural H&P completed on 12/20. * Arnol Mauro MD - 12/22/2014 4:07 PM EDT Patient Name: Ondina BAZZIN: [id number] Patient Age: 44 y.o. Birthdate: 1970 Admit date: (Not on file) Attending Physician: Arnol Mauro MD See scanned document for pre-procedural H&P completed on 12/20. documented in this encounter Miscellaneous Notes * Op Note - Arnol Mauro MD - 12/23/2014 9:11 AM EDT Operative Note Patient Name: Ondina Fox : [id number] MR#: [id number] Case Date: 12/23/2014 Surgeon: Surgeon(s) and Role: [...] meniscus and lateral chondral surfaces. Complications: None Fluids: 1000cc Estimated Blood Loss: Minimal Drains: None Disposition: awakened from anesthesia, extubated and taken to the recovery room in a stable condition, having suffered no apparent untoward event. Condition: doing well without problems TOURNIQUET TIME: 32 minutes at 250 mm Hg. INDICATIONS: The patient presented to the orthopedic clinic with severe knee pain. The physical exam and imaging findings consistent with a meniscal tear. We had a discussion regarding the risks and benefits of the different treatment options including activity modification, physical therapy, anti-inflammatory medications, corticosteroid injection, and arthroscopic surgery. The patient elected toproceed with arthroscopy. We discussed the risks of surgery including bleeding, infection, damage to nerves or blood vessels, failure to relieve pain, recurrent meniscal tear, fracture, cardiopulmonary complications associated with anesthesia, and . All questions were answered. Informed consent was signed in the clinic during the pre-op visit and I personally marked the surgical site with a green little traverse in the pre-op area. DESCRIPTION OF OPERATIVE PROCEDURE: After careful identification of the patient in the holding areaand confirmation of the procedure, the patient was transferred to the operating room. General anesthesia was administered by the anesthesiology staff and an LMA was placed. Antibiotic prophylaxis wasgiven and a tourniquet was placed on the upper thigh. The operative thigh was placed in the leg ley. The operative extremity was then prepped and draped in the usual sterile fashion. A time-out for the stated surgery was undertaken and all agreed to proceed with knee arthroscopy. The limb was exsanguinated and tourniquet inflated. The knee was injected with ~40 cc of normal saline. A lateral parapatellar arthroscopy portal was marked out using bony landmarks. A 1 cm incision was then made and the joint was entered bluntly using a trocar. The knee was insufflated with fluid and a diagnostic arthroscopy undertaken. The findings were: Grade 1 DJD patellofemoral joint; partial posterior horn root tear of medial meniscus. grade 2 DJD medial femoral condyle; normal ACL and PCL; normal lateral meniscus and lateral chondral surfaces. We then marked out a medial parapatellar portal with the use of spinal needle after insufflation with Marcaine. A #15 blade was then used under direct visualization with the arthroscope to create this portal. The probe was introduced and the medial meniscus examined. We then used a combination of ar throscopic biter and shaver to debride the meniscus back to a stable edge. We then carefully probedthe rest of the meniscus. We then returned to the lateral compartment and probed the meniscus thereas well. The ACL was also examined with the probe. After completion of the therapeutic portion of the case, the knee was thoroughly irrigated with arthroscopic fluid. It was then sucked dry and the ar throscope removed. The wounds were then closed using 4-0 Prolene in an interrupted manner. The knee was injected with a solution of dilaudid and saline. The wounds were cleaned, dried, and a dressing consistent of Xeroform followed by dry gauze and ABDs was applied. This was then over wrapped with a kerlix bandage and an Alex bandage. The tourniquet was then deflated, and the patient awakened by the anesthesiology staff. The patient was transferred to [facility] in good condition. There appeared to be no intraoperative complications. The patient had palpable dorsalis pedis pulse after the case. All sponge needle and instrument counts were correct at the end of the case. Dr. Mauro was present, participating, and scrubbed for all integral portions of the case. POSTOPERATIVE PLAN: Admission to the same-day surgery unit for recovery. The patient will be discharged with appropriate pain medications and asked to take twice daily aspirin for 2 weeks for DVT prophylaxis. Crutches as needed for comfort. Weightbearing as tolerated. Return to clinic in two weeks for suture removal. * Brief Op Note - Arnol Mauro MD - 12/23/2014 9:01 AM EDT Brief Operative Note Patient Name: Ondina Fox : [id number] MR#: [id number] Case Date: 12/23/2014 Surgeon: Surgeon(s) and Role: [...] meniscus and lateral chondral surfaces. Complications: None Fluids: 1000cc Estimated Blood Loss: Minimal Drains: None Disposition: awakened from anesthesia, extubated and taken to the recovery room in a stable condition, having suffered no apparent untoward event. Condition: doing well without problems Attestation: Case Date: 12/23/2014 I was present and I participated during the entire procedure (does not need to include opening and closing). (Please see the Surgical Encounter Summary for any Implant and Specimen details pertinent to this patient.) documented in this encounter Plan of Treatment Not on file documented as of this encounter Procedures Procedure Name Priority Date/Time Associated Diagnosis Comments ARTHROSCOPY KNEE, MENISCECTOMY SINGLE W/ SHAVING (WRVU 7.03) 12/23/2014 8:10 AM EDT Posterior root medial meniscus tear POCT URINE Routine 12/23/2014 7:28 AM EDT ARTHROSCOPY KNEE, MENISCECTOMY SINGLE W/ SHAVING Routine 12/23/2014 6:50 AM EDT documented in this encounter Results * POCT urine (12/23/2014 7:28 AM EDT) POC Urine HCG Negative Negative - Negative POC Control Internal Controls Acceptable Urine specimen (specimen) 12/23/2014 7:28 AM EDT Jelena Jiménez MD POINT OF CARE TEST O RDERABLES documented in this encounter Visit Diagnoses Not on filedocumented in this encounter Administered Medications Inactive Administered Medications - up to 3 most recent administrations Medication Order MAR Action Action Date Dose Rate Site acetaminophen (TYLENOL) tablet 1,000 mg 1,000 mg, Oral, ONCE, 1 dose, On Leslie 12/23/14 at 0715, Maximum dose of acetaminophen is 4000 mg from all sources in 24 hours., Day of Surgery (Day of Procedure), Routine Given 12/23/2014 7:15 AM EDT 1,000 mg gabapentin (NEURONTIN) capsule 600 mg 600 mg, Oral, ONCE, 1 dose, On Leslie 12/23/14 at 0715, Day of Surgery (Day of Procedure), Routine Given 12/23/2014 7:14 AM EDT 600 mg HYDROmorphone (DILAUDID) injection ONCE PRN, Starting on Leslie 12/23/14 at 0859, Until Leslie 12/23/14 at 1455, Intra-Operative (Intra-Procedure), Routine Given 12/23/2014 8:59 AM EDT 2 mg 19- Surgical Site lactated ringers infusion 1,000 mL 1,000 mL, at 100 mL/hr, Intravenous, CONTINUOUS, Starting on Leslie 12/23/14 at 0715, Until Leslie 12/23/14 at 1455, Day of Surgery (Day of Procedure) New Bag 12/23/2014 9:12 AM EDT New Bag 12/23/2014 8:05 AM EDT New Bag 12/23/2014 7:42 AM EDT 1,000 mLs 100 mL/hr scopolamine (TRANSDERM-SCOP) 1.5 mg patch 1 patch 1 patch, Transdermal, ONCE, 1 dose, On Leslie 12/23/14 at 0715, Day of Surgery (Day of Procedure), Routine Given 12/23/2014 7:12 AM EDT 1 patch documented in this encounter Active and Recently Administered Medications Times are shown in EDT. Scheduled Medication Order 12/21/2014 12/22/2014 12/23/2014 acetaminophen (TYLENOL) tablet 1,000 mg (COMPLETED) 1,000 mg, Oral, ONCE, 1 dose, On Leslie 12/23/14 at 0715, Maximum dose of acetaminophen is 4000 mg from all sources in 24 hours., Day of Surgery (Day of Procedure), Routine 07 (Given - Provid er: Sarah Carty RN) ceFAZolin (ANCEF) 2,000 mg in dextrose 5% 106.06 mL (COMPLETED) 2,000 mg (2 g), Intravenous, EVERY 3 HOURS, 1 dose, First dose on Leslie 12/23/14 at 0715, Redose after 3 hours., Intra-Operative (Intra-Procedure), Indication for (Active or Suspected): Prophylaxis 0816 (Given - Provid er: Nieves Henderson CRNA) gabapentin (NEURONTIN) capsule 600 mg (COMPLETED) 600 mg, Oral, ONCE, 1 dose, On Leslie 12/23/14 at 0715, Day of Surgery (Day of Procedure), Routine 07 (Given - Provid er: Sarah Carty RN) scopolamine (TRANSDERM-SCOP) 1.5 mg patch 1 patch (COMPLETED)(Linked Group 1) 1 patch, Transdermal, ONCE, 1 dose, On Leslie 12/23/14 at 0715, Day of Surgery (Day of Procedure), Routine 07 (Given - Provid er: Sarah Carty RN) Continuous Medication Order 12/21/2014 12/22/2014 12/23/2014 lactated ringers infusion 1,000 mL (CANCELED) 1,000 mL, at 100 mL/hr, Intravenous, CONTINUOUS, Starting on Leslie 12/23/14 at 0715, Until Leslie 12/23/14 at 1455, Day of Surgery (Day of Procedure) 0742 (New Bag - Prov ider: Sarah Carty RN)0805 (New Bag - Provider: Nieves Henderson CRNA)0817 (Anesthesia Volume Adjustment - Provider: Nieves Henderson CRNA)0856 (Anesthesia Volume Adjustment - Provider: Nieves Henderson CRNA)0910 (Anesthesia Volume Adjustment - Provider: Nieves Henderson CRNA)0912 (New Bag - Provider: Nieves Henderson CRNA) PRN Medication Order 12/21/2014 12/22/2014 12/23/2014 HYDROmorphone (DILAUDID) injection (CANCELED) ONCE PRN, Starting on Leslie 12/23/14 at 0859, Until Leslie 12/23/14 at 1455, Intra-Operative (Intra-Procedure), Routine 0859 (Given - Provid er: Arnol Mauro MD - Comment: 1 ml dilaudid in 9 cc Nacl wesley.) Linked Groups Order Group 1: scopolamine (TRANSDERM-SCOP) 1.5 mg patch 1 patch (COMPLETED)Jump to med 1 patch, Transdermal, ONCE, 1 dose, On Leslie 12/23/14 at 0715, Day of Surgery (Day of Procedure), Routine Followed by scopolamine (TRANSDERM SCOP) patch REMOVAL (CANCELED) Transdermal, EVERY 24 HOURS, 1 dose, First dose on Sat12/24/14 at 0715, Remove Scopolamine Patch, Day of Surgery (Day of Procedure) documented in this encounter Care Teams Tie Layer Relationship Specialty Start Date End Date Priyanka Carolina, KRISTEL PCP - General 04/06/13 08/04/18 documented as of this encounter
--- OUTSIDE RECORDS SUMMARY | 2024-05-23 01:24 | XMS_ITS | Encounter Summary ---
Author Organization [facility] Address [facility] [place] [address] Care Team Providers Care Rail Manager Name Role Phone Juan J Priyanka Jacobs APRN Primary Care Provid er Reason for Visit * Reason Onset Date Comments Post Procedure Call 12/23/2014 Encounter Details Date Type Department Care Team (Late st Contact Info) Description 12/23/2014 [place]phone [place] [phone] Arnol Harris MD [facility] [place] [address] Post Procedure Call Social History Tobacco Use Types Packs/Day Years [...] Telephone Encounter - Jyoti Mar RN - 12/27/2014 8:27 AM EDT Left VM for pt to call orthopaedics if she is still having post surgical concerns. * Telephone Encounter - Savanna Albert - 12/23/2014 4:39 PM EDT When was your procedure? 12/23/14 Who was your surgeon? DR. HARRIS What procedure did you have done? LEFT KNEE SCOPE What is the question you would like to ask the nurse? IS CALLING TO SAY PATIENT FEELS NASEAUS WHEN SHE STANDS UP SO SHE IS NOT TRYING TO STAND. IS THIS NORMAL? SHOULD SHE PUSH HERSELF TO START WALKING AND SHE IS VERY PALE? WHEN SHOULD SHE START THE 325 MG ASPIRIN SHOULD SHE START TODAY? CAN SHE TAKE AN OVER THE COUNTER EXCEDRIN MIGRAIN FOR HER HEADACHE SHE IS HAVING NOW? Best number to reach you #[phone] The nurse continuously monitors all messages and will return your call before the end of the day. The nurse may need to consult the surgeon about your question which may delay the return call by 24hrs. documented in this encounter Plan of Treatment Not on file documented as of this encounter Visit Diagnoses Not on filedocumented in this encounter Care Teams Rail Manager Relationship Specialty Start Date End Date Priyanka Arita APRN PCP - General 04/06/13 08/04/18 documented as of this encounter
--- OUTSIDE RECORDS SUMMARY | 2024-05-23 01:24 | XMS_ITS | Encounter Summary ---
Author Organization [facility] [place] [address] Care Team Providers Care Mortgage Loan Reviewer Name Role Phone Priyanka Arita Reynaldo HUMPHRIES Primary Care Provid er Encounter Details Date Type Department Care Team (Latest Contact Info) Description 04/17/2013 9:45 AM EDT - 04/17/2013 11:59 PM EDT Hospital Encounter [place] [phone] CLINIC, DR MARCIE Dave, Calin Lang MD [address] [place] [address] Discharge Disposition: Home Social History Tobacco Use Types Packs/Day Years Used Date Smoking Tobacco: Never Assessed Sex and Gender Information Value Date Recorded Sex Assigned at Not on file Gender Identity Not on file Sexual Orientation Not on file documented as of this encounter Medications at Time of Discharge Medication Sig Dispensed Refills Start Date End Date chloroquine (ARALEN) 500 mg tablet 500mg PO q week 09/20/2008 10/01/2014 ciprofloxacin (CIPRO) 500 mg tablet 500mg PO Twice daily 09/20/2008 014 documented as of this encounter Plan of Treatment Not on file documented as of this encounter Procedures Procedure Name Priority Date/Time Associated Diagnosis Comments MAMMO SCREENING CAD BILATERAL Routine 04/17/2013 10:05 AM EDT documented in this encounter Results * Mammo digital bilateral Screening with CAD (04/17/2013 10:05 AM EDT) Anatomical Region Laterality Modality Breast Bilateral Mammography 04/17/2013 10:0 5 AM EDT Narrative 04/20/2013 9:17 AM EDT Reason for Exam: Screening ?? Technique: Craniocaudal (CC) and Medio-lateral Oblique (MLO) views of both breasts obtained with direct digital capture. In addition to routine 2-D imaging, this exam was also performed with 3-D Tomographic Imaging (MLO and CC). ?? The exam was evaluated by CAD version 8.3.17. ?? Findings: ?? This is a negative mammogram (ACR Category 1). There is an unremarkable fibroglandular pattern in the breasts. ?? There is no mammographic evidence of cancer. The breasts are heterogeneously dense which may limit mammographic sensitivity for the detection of malignancy. ?? CONCLUSION: This is a NEGATIVE mammogram (ACR Category 1). ?? Routine screening mammography is recommended with the frequency dependent upon the patients age and breast cancer risk factors. A letter has been sent to this patient by the breast imaging center. Procedure Note Aniya Beanvides MD - 04/20/2013 Reason for Exam: Screening Technique: Craniocaudal (CC) and Medio-lateral Oblique (MLO) views of both breasts obtained with direct digital capture. In addition to routine 2-D imaging, this exam was also performed with 3-D Tomographic Imaging (MLOand CC). The exam was evaluated by CAD version 8.3.17. Findings: This is a negative mammogram (ACR Category 1). There is an unremarkable fibroglandular pattern in the breasts. There is no mammographic evidence of cancer. The breasts areheterogeneously dense which may limit mammographic sensitivity for the detection ofmalignancy. CONCLUSION: This is a NEGATIVE mammogram (ACR Category 1). Routine screening mammography is recommended with the frequency dependentupon the patients age and breast cancer risk factors. A letter has been sent to this patient by the breast imaging center. Priyanka Arita APRN IMG MAMMO OR DERABLES documented in this encounter Visit Diagnoses Not on filedocumented in this encounter Care Teams Mortgage Loan Reviewer Relationship Specialty Start Date End Date Priyanka Arita APRN PCP - General 04/06/13 08/04/18 documented as of this encounter
--- OUTSIDE RECORDS SUMMARY | 2024-05-23 01:24 | XMS_ITS | Encounter Summary ---
Author Organization [facility] Address [facility] [place] [address] Care Team Providers Care Drilling Assistant Name Role Phone AritaPriyanka bonilla Reynaldo HUMPHRIES Primary Care Provid er Reason for Visit * Reason Comments Skin Check Encounter Details Date Type Department Care Team (Late st Contact Info) Description 12/21/2013 9:00 AM EDT Follow-Up Dermatology at [facility] [address] [place] [address] Zeenat Lopez MD [facility] [address] [address] Multiple benign nevi (Primary Dx) Discharge Disposition: Home Social History Tobacco Use Types Packs/Day Years Used Date Smoking Tobacco: Never Assessed Sex and Gender Information Value Date Recorded Sex Assigned at Not on file Gender Identity Not on file Sexual Orientation Not on file documented as of this encounter Patient Instructions * Patient Instructions* Ke Ta LPN - 12/21/2013 9:06 AM EDT Sun Protection and Your Skin It is important to protect yourself from the harmful effects of ultraviolet rays that come from thesun. Exposure to ultraviolet light causes many undesirable conditions including: ?? Skin Cancer. Most skin cancers develop in areas of the skin that get the most sun exposure. Basal Cell Carcinoma (BCC), and Squamous Cell Carcinoma (SCC) are the most common. Melanoma is the deadliest. All skin cancers require treatment to prevent serious complications. ?? Sunburn. Too many sunburns or sunburns that blister increase your risk of developing skin cancer. Recommendations on protecting yourself from sunburns can be found in this AVS. ?? Aging of the Skin. Sun-exposed skin ages more quickly than normal skin. It turns rough and leathery over time. This skin can develop large freckles, a splotchy appearance, age spots, wrinkles and scaly growths. In addition to causing skin cancer, tanning beds are associated with premature aging of the skin. How Do I Protect Myself from the Sun? You can still protect yourself from the harmful effects of sun exposure and enjoy the outdoors! Thefollowing recommendations are designed to allow you to participate in all the activities you enjoy while maintaining a safe level of protection for you and your family: ?? Generously apply a broad-spectrum water-resistant sunscreen with a Sun Protection Factor (SPF) of 30 or more to all exposed skin. Broad-spectrum provides protection from both ultraviolet A (UVA)and ultraviolet B (UVB) rays. Reapply sunscreen every 2 hours, even on cloudy days, and after swimming or sweating. ?? Not all sunscreens are the same. There are a lot of sunscreen ingredients. Sunscreens work by either forming a physical or a chemical barrier to ultraviolet light. Zinc oxide or Titanium dioxide are physical barriers to the sun. They are thick and opaque--generally require a little more effort to rub in, but are generally considered safer, especially for sensitive skin. We recommend sunscreensthat contain at least one physical barrier. Look for these brands: ?? Blue Lizard ?? [place] Baby ?? Neutrogena ?? Vanicream ?? Wear protective clothing. Long-sleeved shirts, pants, a wide-brimmed hat and sunglasses are all excellent choices. There are many clothing companies that now specialize in SPF 50 or greater clothing that is engineered to be comfortable and breathable in hot weather or during exercise. A couple of choices are: ?? Coolibar (www.coolibar.PlanetTran) ?? LL Denis (www.llbean.PlanetTran) ?? Saturday Afternoons (www.Enabled Employment) ?? Seek shade. The sun's rays are strongest between 10a.m. And 4 p.m. ?? Use extra caution near water, snow and sand as they reflect and intensify the damaging rays of the sun which can increase your chance of a sunburn. Adapted from The Sun and Your Skin. [employer] [employer]. Copyright 2010. documented in this encounter Progress Notes * Zeenat Lopez MD - 12/21/2013 9:00 AM EDT DERMATOLOGY ESTABLISHED PATIENT CLINIC NOTE Date of service: 12/21/2013 Ondina Fox : 1970 Provider: Zeenat Lopez MD Chief Complaint Patient presents with ??? Skin Check SKIN HISTORY: 1. Benign Nevi 2. 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 The lesion extends to the peripheral and deep specimen edges (see Comment). ---Comment--- There are focal junctional epithelioid nests at the periphery of the lesion extending in a small shoulder lateral to the congenital nevus component. This is interpretted as a subtle, mildly atypical dysplastic nevus in association with a congenital nevus. Dr. Lorenzo concurs. The clinical appearance of a bright red lesion is noted. There is no significant inflammation. However, there are numerous very ctatic vessels within the lesion that would impart a red appearance. No personal or family history of any skin conditions or skin cancers HPI Ondina Fox is a 43 y.o. year old female, established patient of [facility], last seen by myself 07/20/2013; here today for a full skin exam. Patient states that she has no areas of concerns today and is doing well. ADR: No Known Allergies MEDS: Current Outpatient Prescriptions Medication Sig Dispense Refill ??? propranolol (INDERAL) 20 mg tablet Take 20 mg by mouth 3 times daily. As needed for anxiety ??? chloroquine (ARALEN) 500 mg tablet 500mg PO q week ??? ciprofloxacin (CIPRO) 500 mg tablet 500mg PO Twice daily ROS General: feeling well Skin: denies other skin complaints EXAM General: NAD, pleasant, cooperative Skin: A total body skin exam except for the genitalia was performed. This includes examination of the skin of the face, ears, neck, chest, axillae, left and right upper and lower extremities, hands, feet, abdomen, back, and buttocks. The genitalia, perineum, and perianal areas were not examined. Significant skin findings: A. Multiple, 0.3-0.5cm, medium-brown, evenly-pigmented macules and papules. All with regular pigment pattern on dermoscopy. No pigmented lesions suspicious for melanoma, scattered on back, abdomen . ASSESSMENT/PLAN: A. Benign Nevi - Patient reassured - Etiology discussed - Encouraged patient to continue to monitor skin for changes and call if such occurs - Discussed importance of sun protection, sun avoidance strategies, protective clothing, and sunscreen. - Discussed warning signs for skin cancer, including the ABCE's of melanoma. - Recommended patient wear an SPF of 30 or higher, containing UVA and UVB that is broad spectrum, and to reapply every 2 hours B. RTC PRN. Patient would like daimond have her PCP clinically follow her skin and re-consult derm for concerns. I am documenting this encounter acting as the scribe for and in the presence of Dr. Lopez.: KE TA LPN I performed the above scribed service and agree with the accuracy of the documentation in this encounter. Zeenat Lopez MD Section of Dermatology [facility] documented in this encounter Plan of Treatment Not on file documented as of this encounter Visit Diagnoses Diagnosis Multiple benign nevi- Primary Benign neoplasm of skin, site unspecified documented in this encounter Care Teams Drilling Assistant Relationship Specialty Start Date End Date Priyanka Arita, DISTRICT ADVISER PCP - General 04/06/13 08/04/18 documented as of this encounter
--- OUTSIDE RECORDS SUMMARY | 2024-05-23 01:24 | XMS_ITS | Encounter Summary ---
Author Organization [facility] [place] [address] Care Team Providers Care Teradata Developer Name Role Phone Priyanka Arita APRN Primary Care Provid er Reason for Referral * Physical Therapy (Routine) - Specialty Diagnoses / Procedures Referred By Kristi good Referred To Contact Physical Therapy Diagnoses Hamstring tendinitis at origin Jacey Ford MD [facility] [place] [address] [address] [place] [address] Referral ID Status Reason Start Date Expiration Date V isits Requested Visits Authorized [id number] Evaluate and Treat 10/01/2014 03/30/2015 12 12 Reason for Visit * Reason Comments Left Knee Pain Encounter Details Date Type Department Care Team (Late st Contact Info) Description 10/01/2014 9:30 AM EDT [place] [phone] Jacey Ford MD [facility] [place] [address] Hamstring tendinitis at origin Discharge Disposition: Home Social History Tobacco Use [...] Sign Reading Time Taken Comments Blood Pressure 109/62 10/01/2014 9:31 AM EDT Pulse 62 10/01/2014 9:31 AM EDT Temperature - - Respiratory Rate - - Oxygen Saturation - - Inhaled Oxygen Concentration - - Weight 60.3 kg (133 lb) 10/01/2014 9:31 AM EDT Height 165.1 cm (5' 5) 10/01/2014 9:31 AM EDT Body Mass Index 22.13 10/01/2014 9:31 AM EDT documented in this encounter Progress Notes * Jacey Ford MD - 10/01/2014 10:43 AM EDT The patient presents for discussion of her left knee. She started feeling pain on 09/18. She was a 1.5 miles into her run and started to limp for no apparent reason. She turned back and was continuing to have limp. This all occurred without obvious injury. Two days prior to that she says that she had felt tight in her hamstring with walking. Again there was no previous injury. She had resumed running in late July and was increasing her miles when this pain started. She was seen in immediate care in [place] because of her pain. She has a couple of different options on braces. She notes that she was improving until yesterday when she had a slight slip in the snow without a fall. She feels that she is back to the beginning now. She has a sense of instability without locking. She has not had swelling. Her health is otherwise fine. 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 She does running, yoga, and works outside. O: Appears well. She reaches full extension with both knees and is able to squat, but offloads this side. There is no effusion in the left knee. There is no peripatellar tenderness. MCL, LCL, and ACL are intact. There is no joint line tenderness. All of her tenderness appears to be in the distal medial hamstring tendon. However, resisted hamstring contraction appears to be not particularly painful. A/P: Knee pain, most consistent with a distal hamstring tendon origin. She was referred to PT. She does not need to necessarily use her braces. She will try to progress with PT and was encouraged to return for followup if she is failing to improve. In that instance, physical exam would be done first before considering imaging testing. Followup, therefore, is based on symptoms or p.r.n. documented in this encounter Plan of Treatment Scheduled Referrals Name Type Priority Associated Diagnoses Orde r Schedule Referral to Physical Therapy Outpatient Referral Routine Hamstring Tendinitis At Origin Ordered: 10/01/2014 documented as of this encounter Visit Diagnoses Diagnosis Hamstring tendinitis at origin documented in this encounter Care Teams Teradata Developer Relationship Specialty Start Date End Date Priyanka Arita, HYDROELECTRIC PLANT OPERATOR PCP - General 04/06/13 08/04/18 documented as of this encounter
--- OUTSIDE RECORDS SUMMARY | 2024-05-23 01:24 | XMS_ITS | Encounter Summary ---
Author Organization [facility] [place] [address] Care Team Providers Care House Mother Name Role Phone Juan J Priyanka Jacobs APRN Primary Care [facility] er Reason for Visit * Reason Onset Date Comments Results 11/05/2014 Encounter Details Date Type Department Care Team (Late st Contact Info) Description 11/05/2014 Telephone [place] [phone] Jacey Ford MD [facility] [place] [address] Results Social History Tobacco Use Types Packs/Day Years [...] encounter Miscellaneous Notes * Telephone Encounter - Laly Torres - 11/09/2014 10:05 AM EDT Patient scheduled with Dr. Mauro on 11/17. * Telephone Encounter - Jacey Ford MD - 11/09/2014 9:33 AM EDT Recurrent swelling post hikes. Basically back to where she was initially, also with posterior hamstring area pain. Worried about her [place] trip. Discussed meniscal root tear is not as straightforward as meniscal tear. Regardless, she should have surgicel discussion. Transferred call to executive legal secretary to book. * Telephone Encounter - Savanna Albert - 11/09/2014 8:04 AM EDT PLEASE USE CELL # [phone] Her leg is in a lot of pain and very swollen now. * Telephone Encounter - Cindy Meza - 11/08/2014 8:18 AM EDT What study is patient calling about? MRI Per [facility] the study was done: 11/04/2014 Per [facility] the results are final: yes Best number to reach the patient # [phone] Please leave a message with results on her answering machine. She will be in and out for the day. * Telephone Encounter - Jessica Aguirre RN - 11/05/2014 2:00 PM EDT Phone call to Ondina to review radiologist findings re MRI. No answer at this time. Message routed to Dr. Ford re next steps. * Telephone Encounter - Sagrario Del Angel - 11/05/2014 1:45 PM EDT Who is calling: Patient What is the question: Patient called and would like to know results from MRI done 11/04/[address] Ford documented in this encounter Plan of Treatment Not on file documented as of this encounter Visit Diagnoses Not on filedocumented in this encounter Care Teams House Mother Relationship Specialty Start Date End Date Priyanka Arita, KRISTEL PCP - General 04/06/13 08/04/18 documented as of this encounter
--- OUTSIDE RECORDS SUMMARY | 2024-05-23 01:24 | XMS_ITS | Encounter Summary ---
Author Organization [facility] Address [facility] [place] [address] Care Team Providers Care Gear Shaper Name Role Phone AritaPriyanka bonilla Reynaldo HUMPHRIES Primary Care [facility] er Encounter Details Date Type Department Care Team (Latest Contact Info) Description 11/04/2014 5:11 PM EDT - 11/04/2014 11:59 PM EDT Hospital [place] [phone] CLINIC, Jacey Yang MD [facility] [place] [address] Left knee pain Discharge Disposition: Home Social [...] Sig Dispensed Refills Start Date End Date UNABLE TO FIND as needed. Med Name: Propanol 11/17/2014 documented as of this encounter Plan of Treatment Not on file documented as of this encounter Procedures Procedure Name Priority Date/Time Associated Diagnosis Comments MRI KNEE WO CONTRAST Routine 11/04/2014 6:53 PM EDT Left knee pain documented in this encounter Results * MRI knee WO contrast (11/04/2014 6:53 PM EDT) Anatomical Region Laterality Modality Knee Magnetic Resonan ce 11/04/2014 6:53 PM EDT Impressions 11/05/2014 10:27 AM EDT IMPRESSION: 1. ??Complete tear of the posterior root attachment of the medial meniscus without significant displacement. 2. ??The lateral meniscus is intact. No focal chondral defect is seen. 3. ??Small subchondral cysts at the tibial plateau adjacent to the attachment of the ACL. The ACL and PCL fibers are intact. 4. ??Small knee joint effusion with debris/synovitis proliferations. This report was reviewed by Rome Dykes at 11/05/2014 10:21 AM Film and interpretation reviewed by the attending Narrative 11/05/2014 10:27 AM EDT EXAMINATION: MR Knee Without Bayron/LEFT CLINICAL HISTORY: medial joint line tenderness ? med meniscus tear COMPARISON: None TECHNIQUE: Routine noncontrast MRI of the Left knee was performed. FINDINGS: MEDIAL COMPARTMENT: There is a complete tear of the posterior root attachment of the medial meniscus. No displacement is seen. There is a small focus of bone marrow edema and subchondral cysts adjacent to the site of posterior horn reattachment. There is intrasubstance signal alteration within the remaining portion of the posterior horn consistent with degeneration. The anterior horn and body of the medial meniscus are well preserved. Area of chondral signal alteration at the inner portion of the medial femoral condyle consistent with chondral degeneration. No fissuring or focal defect is seen. LATERAL COMPARTMENT: The lateral meniscus is intact. No focal chondral defect is seen.. PATELLOFEMORAL COMPARTMENT: Area of chondral signal alteration within the lateral facet of the patella and opposing trochlear articulating cartilage consistent with chondral degeneration. No focal defects or fissures seen.. CRUCIATE LIGAMENTS: The ACL and PCL are intact. There is a 12 mm subchondral cyst underlying the tibial attachment of the ACL. COLLATERAL LIGAMENTS: MCL and lateral collateral ligament complex are intact. TENDONS: Quadriceps, patellar, popliteus, pes anserine are intact.. MISCELLANEOUS: There is a small knee joint effusion with multiple focus of T2 hypointensity likely due to synovial proliferation or debris. A small to moderate popliteal cyst is noted.. Procedure Note Rome Dykes MD - 11/05/2014 EXAMINATION: MR Knee Without Bayron/LEFT CLINICAL HISTORY: medial joint line tenderness ? med meniscus tear COMPARISON: None TECHNIQUE: Routine noncontrast MRI of the Left knee was performed. FINDINGS: MEDIAL COMPARTMENT: There is a complete tear of the posterior rootattachment of the medial meniscus. No displacement is seen. There is a small focus ofbone marrow edema and subchondral cysts adjacent to the site of posteriorhorn reattachment. There is intrasubstance signal alteration within theremaining portion of the posterior horn consistent with degeneration. The anteriorhorn and body of the medial meniscus are well preserved. Area of chondralsignal alteration at the inner portion of the medial femoral condyle consistentwith chondral degeneration. No fissuring or focal defect is seen. LATERAL COMPARTMENT: The lateral meniscus is intact. No focal chondraldefect is seen.. PATELLOFEMORAL COMPARTMENT: Area of chondral signal alteration withinthe lateral facet of the patella and opposing trochlear articulatingcartilage consistent with chondral degeneration. No focal defects or fissuresseen.. CRUCIATE LIGAMENTS: The ACL and PCL are intact. There is a 12 mmsubchondral cyst underlying the tibial attachment of the ACL. COLLATERAL LIGAMENTS: MCL and lateral collateral ligament complex areintact. TENDONS: Quadriceps, patellar, popliteus, pes anserine are intact.. MISCELLANEOUS: There is a small knee joint effusion with multiple focus ofT2 hypointensity likely due to synovial proliferation or debris. A small to moderate popliteal cyst is noted.. IMPRESSION IMPRESSION: 1. Complete tear of the posterior root attachment of the medialmeniscus without significant displacement. 2. The lateral meniscus is intact. No focal chondral defect is seen. 3. Small subchondral cysts at the tibial plateau adjacent to theattachment of the ACL. The ACL and PCL fibers are intact. 4. Small knee joint effusion with debris/synovitis proliferations. This report was reviewed by Rome Dykes at 11/05/2014 10:21 AM Film and interpretation reviewed by the attending Jacey Ford MD [facility] MRI ORDERABLES documented in this encounter Visit Diagnoses Diagnosis Left knee pain Pain in joint, lower leg documented in this encounter Care Teams Gear Shaper Relationship Specialty Start Date End Date Ugo Aritaedelmira Jacobs, KRISTEL PCP - General 04/06/13 08/04/18 documented as of this encounter
--- OUTSIDE RECORDS SUMMARY | 2024-05-23 01:24 | XMS_ITS | Encounter Summary ---
Author Organization [facility] [place] [address] Care Team Providers Care Meat Cutter Apprentice Name Role Phone Juan J Priyanka Jacobs APRN Primary Care [facility] er Reason for Visit * Reason Comments Left Knee Pain Sprain Encounter Details Date Type Department Care Team (Late st Contact Info) Description 10/29/2014 9:30 AM EDT Office [place] [phone] Jacey Ford MD [facility] [address] [address] Left knee pain Discharge Disposition: Home Social [...] Sign Reading Time Taken Comments Blood Pressure 125/55 10/29/2014 9:21 AM EDT Pulse 57 10/29/2014 9:21 AM EDT Temperature - - Respiratory Rate - - Oxygen Saturation - - Inhaled Oxygen Concentration - - Weight 70 kg (154 lb 4.8 oz) 10/29/2014 9:21 AM EDT fully clothed Height 167 cm (5' 5.75) 10/29/2014 9:2 1 AM EDT verbal Body Mass Index 25.09 10/29/2014 9:21 AM EDT documented in this encounter Patient Instructions * Patient Instructions* Jacey Ford MD - 10/29/2014 9:49 AM EDT Mechanical symptoms are: Locking Giving way Recurrent swelling Call for further discussion regarding MRI if this is the case. documented in this encounter Progress Notes * Jacey Ford MD - 10/29/2014 9:51 AM EDT The patient returns for another discussion of her left knee. She is seeing PT weekly, and initially this was thought to be hamstring, but as she was seen in PT it became more clear that her tenderness appears to be at her joint line. She has concern regarding a month-long backcountry trip to [place] she has planned for January. She has had an improvement over the last week or so. She was having trouble sitting on her heels or sitting cross-legged, but she is able to do that today. She has not had any locking, swelling, or instability other than one episode, which occurred three and a half weeks ago while going down the stairs. About two weeks ago she did a hike with some limping. However, she also ended up in the snow, and postholing a few times was actually tolerable. She comes in primarily because of concern regarding her upcoming trip. O: Appears well. She reaches full extension with each knee and can squat fully. There is no effusion in the left knee. There is no peripatellar tenderness. MCL, LCL, and ACL are intact. There is no joint line tenderness or other meniscal finding. Her hamstring flexibility is quite good, and she has no tenderness at the pes anserine bursa region. A/P: Knee pain. Natural history of meniscal tear was discussed with her in some detail. She may, in fact, have a meniscal tear that has settled down, and given her absence of mechanical symptoms she would not necessarily be a surgical candidate. That would mean that MRI is not really indicated currently. However, given her level of concern regarding her upcoming trip, MRI may be reasonable to pursue. We discussed this in significant detail. We ended up deciding that we would pend MRI orders in her chart. She could activate that order if she has any sense of instability, locking, or swelling. Followup will be based on those results. Of note, she had x-rays done at an outside facility and has those on a CD. They were read as normal. documented in this encounter Plan of Treatment Not on file documented as of this encounter Results * MRI knee WO [...] 10:27 AM EDT EXAMINATION: MR Knee Without Bayrno/LEFT CLINICAL HISTORY: medial joint line tenderness ? [...] reviewed by the attending Jacey Ford MD [facility] MRI ORDERABLES documented in this encounter Visit Diagnoses Diagnosis Left knee pain Pain in joint, lower leg Left knee pain Pain in joint, lower leg documented in this encounter Care Teams Meat Cutter Apprentice Relationship Specialty Start Date End Date Priyanka Arita, KRISTEL PCP - General 04/06/13 08/04/18 documented as of this encounter
--- OUTSIDE RECORDS SUMMARY | 2024-05-23 01:24 | XMS_ITS | Encounter Summary ---
Author Organization [place] [address] Care Team Providers Care Power Digger Operator Name Role Phone Priyanka Arita APRN Primary Care [facility] er Reason for Visit * Reason Onset Date Comments Questions 10/19/2014 Encounter Details Date Type Department Care Team (Late st Contact Info) Description 10/19/2014 Telephone [place] [phone] Jacey Yates MD [facility] [place] [address] Questions Social History Tobacco Use Types Packs/Day [...] encounter Miscellaneous Notes * Telephone Encounter - Cindy Meza - 10/25/2014 8:14 AM EDT Patient Scheduled for follow up appointment * Telephone Encounter - Jessica Aguirre RN - 10/19/2014 3:13 PM EDT Phone call to Ondina to inform of Dr. Yates's orders - no answer at this time and no messaging system available. * Telephone Encounter - Jacey Yates MD - 10/19/2014 2:12 PM EDT I think I was pretty clear at the visit that I wanted to re-examine first before making a decision regarding imaging. Reminder to her that we use imaging to look for surgical problems and at the time of the visit I saw no surgical indications. * Telephone Encounter - Savanna Albert - 10/19/2014 1:07 PM EDT Patient is calling to get an MRI ordered for her not just a follow up appointment with Dr. Yates. She wants to get an MRI. Please call her at [phone] * Telephone Encounter - Lurdes Arcos - 10/19/2014 10:56 AM EDT Message at work number to call to schedule follow-up appointment in [facility] to discuss next steps. * Telephone Encounter - Jessica Aguirre RN - 10/19/2014 9:05 AM EDT Review of medical record and office note of 10/01/14 states A/P: Knee pain, most consistent with a distal hamstring tendon origin. She was referred to PT. She does not need to necessarily use her braces. She will try to progress with PT and was encouraged to return for followup if she is failing to improve. In that instance, physical exam would be done first before considering imaging testing. Followup, therefore, is based on symptomsor P.r.n. Office visit is the next step - Please offer Ms. Fox an office visit at her convenience with Dr. Yates. * Telephone Encounter - Niya Bennett - 10/19/2014 8:08 AM EDT Who is calling: PATIENT What is the question: PATIENT CALLING IN TODAY WANTING TO SET UP AN MRI. SHE STATES THAT AT HER LAST VISIT DR YATES STATED SHE COULD GET ONE IF SHE FELT SHE NEEDED ONE. PLEASE PLACE ORDER SO WE CANSCHEDULE PATIENT. THANKS. SECRETARIES: SAFETY QUESTIONS ALREADY ANSWERED PLEASE SEND MESSAGE TO RADIOLOGY VENDING MACHINE COIN COLLECTOR POOL ONCE ORDER IS PLACED PATIENT AVAILABLE: 10/21 4:45-8PM 10/22/14 4:30-8PM 10/23/14 8AM-11AM 10/25/14 10:30-8PM documented in this encounter Plan of Treatment Not on file documented as of this encounter Visit Diagnoses Not on filedocumented in this encounter Care Teams Power Digger Operator Relationship Specialty Start Date End Date Priyanka Arita APRN PCP - General 04/06/13 08/04/18 documented as of this encounter
--- OUTSIDE RECORDS SUMMARY | 2024-05-23 01:24 | XMS_ITS | Encounter Summary ---
Author Organization [facility] Address [facility] [place] [address] Care Team Providers Care Production Tech Name Role Phone AritaUgo bonillaedelmira Jacobs APRN Primary Care Provid er Reason for Visit * Reason Onset Date Comments Letter for School/Work 01/04/2015 Encounter Details Date Type Department Care Team (Late st Contact Info) Description 01/04/2015 Telephone [place] [phone] Arnol Mauro MD [facility] [place] [address] Letter for School/Work Social History Tobacco Use Types Packs/Day Years [...] encounter Miscellaneous Notes * Telephone Encounter - Zeenat Calixto - 01/07/2015 8:37 AM EDT Letter completed, patient called. 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 * Telephone Encounter - Lurdes Arcos - 01/04/2015 10:02 AM EDT Letter created, in Dr. Mauro's folder for signature. * Telephone Encounter - Savanna Albert - 01/04/2015 8:33 AM EDT Name: Ondina Fox Mailing address: [address] [id number] : 1970 Diagnosis: LEFT KNEE SCOPE Date of Injury: N/A Date of Surgery:12/23/14 What are you returning to (work, sports, school, etc.)?THIS IS FOR THE PEOPLE FROM THE VACATION YANE PLANNED TO PROVE SHE HAD SURGERY THEY HAVE RESCHEDULED THE VACATION. THE TRAIN PEOPLE WANT THIS FOR VERIFICATION Would you like to return electrical maintenance engineer or making department preparer?N/A If making department preparer, how many hours a day?N/A What do you want your start date to be?N/A What restrictions do you need?UNABLE TO TAKE TRIP ON 01/23/15 AND NOW HAS BEEN MOVED TO 01/28/15 Would you like to picker / packer your letter? YES If yes, when?01/07/15Saturday PLEASE CALL WHEN READY FOR HER TO PORTRAIT PAINTER. If no, mailed or faxed? NO To what address/fax#?NO To whose attention?NO documented in this encounter Plan of Treatment Not on file documented as of this encounter Visit Diagnoses Not on filedocumented in this encounter Care Teams Production Tech Relationship Specialty Start Date End Date Priyanka Arita APRN PCP - General 04/06/13 08/04/18 documented as of this encounter
--- OUTSIDE RECORDS SUMMARY | 2024-05-23 01:24 | XMS_ITS | Encounter Summary ---
Author Organization [facility] Address [facility] [place] [address] Care Team Providers Care Manager Heart Name Role Phone Juan J Priyanka Jacobs APRN Primary Care Provid er Reason for Visit * Reason Onset Date Comments Post-op Problem 12/27/2014 Encounter Details Date Type Department Care Team (Late st Contact Info) Description 12/27/2014 Telephone [place] [phone] Aronl Harris MD [facility] [place] [address] Post-op Problem Social History Tobacco Use Types Packs/Day Years [...] Telephone Encounter - Jyoti Mar RN - 12/28/2014 7:48 AM EDT I spoke to pt yesterday concerning a possible solis's cyst on left calf. She is s/p ARTHROSCOPY KNEE, MENISCECTOMY SINGLE W/ SHAVING LEFT MEDIAL due to posterior root medial meniscus tear. She c/o swelling and contributes this to going back to work today and being on her feet for 6 hours. She does not have compression stockings but has been icing her operative leg. I suggested RICE treatment and to use an KAYLA bandage for light compression. She denies fever or excessive pain at this time. She will be seen in orthopaedics tomorrow 12/29/14 for a post op follow up. She is willing to wait until then to discuss her solis's cyst concerns. * Telephone Encounter - Cindy Meza - 12/27/2014 3:50 PM EDT When was your procedure? 12/23/2014 Who was your surgeon? HARRIS What procedure did you have done? ARTHROSCOPY What is the question you would like to ask the nurse? PATIENT IS HAVING SWELLING AND HAS A BIG BALLBEHIND HER KNEE. Best number to reach you # [phone] documented in this encounter Plan of Treatment Not on file documented as of this encounter Visit Diagnoses Not on filedocumented in this encounter Care Teams Manager Heart Relationship Specialty Start Date End Date Priyanka Arita, KRISTEL PCP - General 04/06/13 08/04/18 documented as of this encounter
--- OUTSIDE RECORDS SUMMARY | 2024-05-23 01:24 | XMS_ITS | Encounter Summary ---
Author Organization [facility] [place] [address] Care Team Providers Care Crm Coordinator Name Role Phone AritaPriyanka bonilla Reynaldo [facility] Primary Care Provid er Reason for Visit * Reason Comments Left Knee Pain Left Knee Scope, 12/23 Encounter Details Date Type Department Care Team (Late st Contact Info) Description 12/29/2014 9:30 AM EDT [place] [address] Arabella Reyna LEAD PERSON [facility] [place] [address] Medial meniscus, posterior horn derangement, left Discharge Disposition: Home Social History Tobacco Use [...] Sign Reading Time Taken Comments Blood Pressure 117/68 12/29/2014 9:46 AM EDT Pulse 63 12/29/2014 9:46 AM EDT Temperature 36.7 ??C (98 ??F) 12/29/2014 9:46 AM EDT Respiratory Rate - - Oxygen Saturation - - Inhaled Oxygen Concentration - - Weight 69.4 kg (153 lb) 12/29/2014 9:46 AM EDT v erbal Height 166.4 cm (5' 5.5) 12/29/2014 9:46 AM EDT verbal Body Mass Index 25.07 12/29/2014 9:46 AM EDT documented in this encounter Progress Notes * KipFabi del toroArabella B, LEAD PERSON - 12/29/2014 9:43 AM EDT PATIENT NAME: Ondina Fox AGE: 44 y.o. MR#: [id number] DATE OF VISIT: 12/29/2014 DATE OF INJURY/ONSET: Case Date: 12/23/2014 Surgeon: [...] year old female comes into clinic today 6 days s/p the above procedure. She reports she is doing well postoperatively and has no pain. However, she is concerned about the Jessica's cyst in the posterior aspect of the knee. She feels as though it is limiting her flexion and extension and has questions about this. She denies calf pain. She denies redness and drainage from her incisions. She has been ambulating unassisted. She has not needed to take any pain medications. She is planning a backpacking trip in [place] in the beginning of January and iswondering if she'll be able to go. Active Ambulatory Problems Diagnosis Date Noted ??? [...] pain, nausea, vomiting, and diarrhea. Physical Exam Vitals Office Visit from 12/29/2014 in Orthopaedics Weight - Scale 69.4 kg (153 lb) [verbal] Height 166.4 cm (5' 5.5) [verbal] BSA (Calculated - sq m) 1.79 sq meters BMI (Calculated) 25.1 Temp 36.7 ??C (98 ??F) Temp Source Oral Heart Rate 63 BP 117/68 mmHg Constitutional: oriented to person, place, and time and well-developed, well- nourished, and in no distress. Skin: Skin is warm and dry. Incisions are well approximated and without erythema or drainage. Left Knee Exam Comments: Comes in without antalgia. Trace effusion. ROM 125 deg flexion, 0 deg extension. 130 deg on contralateral side. No medial joint line tenderness. No lateral joint line tenderness Stable to varus/valgus stress. Able to do a straight leg raise without lag. Normal sensation and motor function distally. ASSESSMENT/PLAN: Ondina Fox is a 44 y.o. female who presents to the clinic 6 days s/p left knee partial medialmenisectomy. She is doing well postoperatively. We discussed that her Jessica's cyst will likely decrease in size as her knee continues to heal from surgery and now that the meniscus has been debrided.Her sutures were removed and Steri-Strips were placed. We discussed a gradual return to activity and she was given a handout on knee and hip strengthening exercises. In addition, she was given several compression sleeves and was recommended that it would be fine for her to go to [facility] in a months time. I suggested she bring compression garments with her and a neoprene knee sleeve to prevent any swelling. The patient agrees with this plan and will follow-up on an as-needed basis. documented in this encounter Plan of Treatment Not on file documented as of this encounter Visit Diagnoses Diagnosis Medial meniscus, posterior horn derangement, left documented in this encounter Care Teams Crm Coordinator Relationship Specialty Start Date End Date Priyanka Arita APRN PCP - General 04/06/13 08/04/18 documented as of this encounter
--- OUTSIDE RECORDS SUMMARY | 2024-05-23 01:24 | XMS_ITS | Encounter Summary ---
Author Organization [facility] Address [facility] [place] [address] Care Team Providers Care Weigher And Grader Name Role Phone Priyanka Arita Nikhilkevin KRISTEL Primary Care Provid er Reason for Visit * Reason Onset Date Comments Post-op Problem 12/28/2014 ARTHROSCOPY KNEE , MENISCECTOMY SINGLE W/ SHAVING LEFT MEDIAL by Dr. Mauro. Encounter Details Date Type Department Care Team (Late st Contact Info) Description 12/28/2014 [place] [phone] Arnol Mauro MD [facility] [place] [address] Post-op Problem (ARTHROSCOPY KNEE, MENISCECTOMY SINGLE W/ SHAVING LEFT MEDIAL by Dr. Mauro.) Social History Tobacco Use Types Packs/Day Years [...] encounter Miscellaneous Notes * Telephone Encounter - Annabelle Rosado RN - 12/28/2014 11:21 AM EDT Surgery: ARTHROSCOPY KNEE, MENISCECTOMY SINGLE W/ SHAVING LEFT MEDIAL by Dr. Mauro. I spoke with Ms. Fox. She has questions regarding the solis's cyst behind the left knee and what are the treatment plans for this. She reported no pain in the knee, but swelling. She worked yesterday and was out about 7 hours. The knee was quite swollen afterwards, and is still swollen. She ishome today and will continue to rest, ice & elevate the knee. She will discuss her solis's cystat her follow up tomorrow. Patient knows how to contact the nurse if any further questions or concerns occur. Next visit: 12/29/14 Arabella Shin APRN for post op check. * Telephone Encounter - Art Villalobos - 12/28/2014 9:11 AM EDT When was your procedure? 12.23.14 Who was your surgeon? Dr. Mauro What procedure did you have done? Meniscus debridement. What is the question you would like to ask the nurse? Questions on swelling and a cyst in her knee.She would like a call back today about the swelling as she is very concerned by it. Best number to reach you # She is at home all day today: [phone] The nurse continuously monitors all messages and will return your call before the end of the day. The nurse may need to consult the surgeon about your question which may delay the return call by 24hrs. documented in this encounter Plan of Treatment Not on file documented as of this encounter Visit Diagnoses Not on filedocumented in this encounter Care Teams Weigher And Grader Relationship Specialty Start Date End Date Priyanka Arita APRN PCP - General 04/06/13 08/04/18 documented as of this encounter
--- OUTSIDE RECORDS SUMMARY | 2024-05-23 01:24 | XMS_ITS | Encounter Summary ---
[place] [address] Care Team Providers Care Service Employee Name Role Phone Priyanka Arita MANAGER LAN Primary Care Provid er Encounter Details Date Type Department Care Team (Late st Contact Info) Description 10/19/2014 Orders [place] [address] Niya Bennett Social History Tobacco Use Types Packs/Day Years [...] on filedocumented in this encounter Care Teams Service Employee Relationship Specialty Start Date End Date Priyanka Arita APRN PCP - General 04/06/13 08/04/18 documented as of this encounter
--- OUTSIDE RECORDS SUMMARY | 2024-05-23 01:24 | XMS_ITS | Encounter Summary ---
Author Organization [facility] [place] [address] Care Team Providers Care Business Process Consultant Name Role Phone Priyanka Aritamaevekevin KRISTEL Primary Care Provid er Encounter Details Date Type Department Care Team (Late st Contact Info) Description 02/16/2015 Orders Only [place] [address] Arnol Mauro MD [facility] [place] [address] Social History Tobacco Use Types Packs/Day Years [...] Procedure Name Priority Date/Time Associated Diagnosis Comments FILM LIBRARY STORAGE ONLY ULTRASOUND STUDY Routine 02/16/2015 9:05 PM EDT documented in this encounter Results * Film Library- Storage only Ultrasound Study (02/16/2015 9:05 PM EDT) Anatomical Region Laterality Modality Other 02/16/2015 9:05 PM EDT Narrative 02/16/2015 9:06 PM EDT This is a Non-reportable exam Procedure Note BERNABE, UNSIGNED REPORT - 02/16/2015 This is a Non-reportable exam Arnol Mauro MD [facility] FILM LIBRARY ORD ERABLES documented in this encounter Visit Diagnoses Not on filedocumented in this encounter Care Teams Business Process Consultant Relationship Specialty Start Date End Date Priyanka Arita, MECHANIC/WELDER PCP - General 04/06/13 08/04/18 documented as of this encounter
--- OUTSIDE RECORDS SUMMARY | 2024-05-23 01:24 | XMS_ITS | Encounter Summary ---
Author Organization [facility] Address [facility] [place] [address] Care Team Providers Care Head Men'S Tennis Coach Name Role Phone CarolinaPriyanka bonilla Reynaldo HUMPHRIES Primary Care Provid er Encounter Details Date Type Department Care Team (Latest Contact Info) Description 12/23/2014 6:41 AM EDT - 12/23/2014 10:55 AM EDT Hospital Encounter [place] [address] Arnol Mauro MD [facility] [place] [address] Medial meniscus, posterior horn derangement, left (Primary Dx) Discharge Disposition: Home Social History [...] Sign Reading Time Taken Comments Blood Pressure 101/58 12/23/2014 10:00 AM EDT Pulse 66 12/23/2014 10:00 AM EDT Temperature 36.2 ??C (97.2 ??F) 12/23/2014 9:09 AM ED T Respiratory Rate 20 12/23/2014 10:00 AM EDT [...] closest emergency room or call the hospital tufter operator at [phone] and ask for physician machine precision engraver covering for your physician. Questions or problems after 5pm or on a weekend: Call the [facility] tufter operator at and ask for the physician machine precision engraver covering for your doctor. NO Ibuprofen/Advil Aleve [...] sensation Contact Information: Your orthopaedic surgeon Dr. Mauro at [phone] with any questions or concerns If it is after 5:00PM on a weekday or a weekend and it is of an urgent nature please call [phone] and ask for the on-call orthopaedic resident. Your Primary Care Physician: PRIYANKA CAROLINA APRN [phone] Future Appointments Date Time Provider Department Center [...] Operative Note Patient Name: Ondina Fox : [id number] MR#: [id number] Case Date: 12/23/2014 Surgeon: Surgeon(s) and Role: [...] marked the surgical site with a green karuk in the pre-op area. DESCRIPTION OF OPERATIVE [...] anesthesiology staff. The patient was transferred to [facility] in good condition. There appeared to be [...] Operative Note Patient Name: Ondina Fox : [id number] MR#: [id number] Case Date: 12/23/2014 Surgeon: Surgeon(s) and Role: [...] RDERABLES documented in this encounter Visit Diagnoses Diagnosis Medial meniscus, posterior horn derangement left s/p arthroscopic debridement 12/23/14- Primary Derangement of posterior horn of medial meniscus Medial meniscus, posterior horn derangement, left documented in this encounter Administered Medications Inactive Administered [...] Given 12/23/2014 7:14 AM EDT 600 mg lactated ringers infusion 1,000 mL 1,000 mL, [...] Day of Surgery (Day of Procedure), Routine 713 (Given - Provid er: Sarah Carty RN) [...] Procedure) documented in this encounter Care Teams Head Men'S Tennis Coach Relationship Specialty Start Date End Date Priyanka Carolina, KRISTEL PCP - General 04/06/13 08/04/18 documented as of this encounter
--- OUTSIDE RECORDS SUMMARY | 2024-05-23 01:24 | XMS_ITS | Encounter Summary ---
Author Organization [facility] Address [facility] [place] [address] Care Team Providers Care Smash Fixer Name Role Phone AritaPriyanka bonilla Reynaldo HUMPHRIES Primary Care Provid er Reason for Visit * Reason Onset Date Comments Triage 02/16/2015 Infection 02/16/2015 Encounter Details Date Type Department Care Team (Late st Contact Info) Description 02/16/2015 [place] [phone] Arnol Mauro MD [facility] [place] [address] Triage; Infection Social History Tobacco Use Types Packs/Day Years [...] Telephone Encounter - Annabelle Rosado RN - 02/16/2015 3:08 PM EDT Surgery: 12/23/14 ARTHROSCOPY KNEE, MENISCECTOMY SINGLE W/ SHAVING LEFT MEDIAL by Dr. Mauro. I spoke with the patient. She is reporting increased swelling of the left leg from her knee into her foot. She reported buckling of the leg a few times and at the end of the hiking trip was noticed to be limping per her friend. She denies any pain or redness of the left calf. She does report pain with certain positions. Afebrile. Patient just returned from a 2 week strenuous hiking trip in [place]. She had a long plane ride over the last 1.5 days. She wore compression stockings during the hikingtrip but did not wear them while flying. She did not do any leg/foot exercises during flights. She has increased swelling of her left lower leg which could be related to the strenuous activity of the hiking trip or possibly may be a DVT. She was advised to ice, elevate and use her Ibuprofen asneeded for pain (up to 2400 mg/24 hours). She will go to [facility] for a duplex study of her left leg. The referral was placed and sent by fax to [facility] ( / ). I have notified the ortho resident airborne electronics analyst that they will be notified of the results of this study to at least start treatment if positive for DVT, then anticipate transfer of management to PCP. If negative, patient was advised that an appointment for Dr. Mauro should be scheduled for 03/02/15 if possible or Ms. Shin 02/22/15. The patient was questioning if an MRI needed. She was advised that first we need to assess for the DVT. Patient knows how to contact the nurse if any further questions or concerns occur. * Telephone Encounter - Niya Bennett - 02/16/2015 2:56 PM EDT Patient calling in today stating that she is having some complications after her surgery. She states she is having swelling and pain in her entire leg and would like a nurse to give her a call. She can be reached [phone] documented in this encounter Plan of Treatment Not on file documented as of this encounter Visit Diagnoses Diagnosis Pain and swelling of lower leg, left documented in this encounter Care Teams Smash Fixer Relationship Specialty Start Date End Date Priyanka Arita, KRISTEL PCP - General 10/14/13 2/11/19 documented as of this encounter
--- OUTSIDE RECORDS SUMMARY | 2024-05-23 01:24 | XMS_ITS | Encounter Summary ---
Author Organization [facility] Address [facility] Makenna [place] [address] Care Team Providers Care Manager Battery Name Role Phone Priyanka Arita Nikhilkevin KRISTEL Primary Care Provid er Reason for Visit * Reason Comments Skin Lesion Encounter Details Date Type Department Care Team (Late st Contact Info) Description 07/20/2013 11:30 AM EST Follow-Up Dermatology at [facility] [address] [place] [address] Zeenat Lopez MD [facility] [address] [address] Skin lesion (Primary Dx) Discharge Disposition: Home Social History Tobacco Use Types Packs/Day Years Used Date Smoking Tobacco: Never Assessed Sex and Gender Information Value Date Recorded Sex Assigned at Not on file Gender Identity Not on file Sexual Orientation Not on file documented as of this encounter Progress Notes * Rina Durand RN - 07/27/2013 3:47 PM ESTQuick Note: Letter sent * Zeenat Lopez MD - 07/20/2013 11:32 AM EST Images from the original note were not included. DERMATOLOGY SPOT-CHECK Date of service: 07/20/2013 Ondina Ann Ruddy : 1970 Provider: Zeenat Lopez MD PROBLEM: Spot to check Chief Complaint Patient presents with ??? Skin Lesion The patient is seen at the request of Priyanka Arita, who instructed the patient to be seenfor evaluation of above SKIN HX: No personal history of skin cancer HPI Ondina Fox is a 43 y.o. year old female. c/o a mole on her back, hard for her to see, unsure about the exact location because her PCP statedthere was a mole on her central back and upper left back that were concerning. Seen for one spot-check at this apointment. Knows this is a one-spot check clinic only. Knows will need to make appointment for full skin check if desired or to have other areas checked. ADR: No Known Allergies MEDS: Current Outpatient Prescriptions Medication Sig Dispense Refill ??? propranolol (INDERAL) 20 mg tablet Take 20 mg by mouth 3 times daily. As needed for anxiety ??? chloroquine (ARALEN) 500 mg tablet 500mg PO q week ??? ciprofloxacin (CIPRO) 500 mg tablet 500mg PO Twice daily ROS General: feeling well EXAM A focused skin exam of the concerning spot was performed. General: NAD, pleasant, cooperative Focused exam of skin: Back Skin findings: A. Mid upper back 2.0 cm to the left of midline and is 2.0 cm superior to scar there is A 0.5 cm bright red macule with irregular borders B. Multiple, 0.3-0.5cm, medium-brown, evenly-pigmented macules and papules. All with regular pigment pattern on dermoscopy. No pigmented lesions suspicious for melanoma. Scattered on back ASSESSMENT/PLAN: A. Nevus r/o atypia Procedure: Skin biopsy by shave technique Location: Mid upper back Discussed indications for procedure and expectations including risks and benefits. Verbal consent obtained. Skin prep with alcohol. Local anesthesia with 1% xylocaine, 1/100,000 epinephrine, 0.1 mEq/mL bicarbonate. A sample of the lesion was removed by shave technique to the level of the dermis andsubmitted to Pathology. Hemostasis obtained (AlCl and/or electrocautery). There were no complications; the pt. tolerated the procedure well. The wound was dressed. Post-procedure expectations, wound care and activity restrictions were reviewed. Follow-up based on pathology results. B. Multiple benign appearing nevi on back RTC for a full skin check, first available I am documenting this encounter acting as the scribe for and in the presence of Dr. Lopez.: RINA DURAND, TAHIRA I performed the above scribed service and agree with the accuracy of the documentation in this encounter. Zeenat Lopez MD Section of Dermatology [facility] cc: Priyanka Arita documented in this encounter Plan of Treatment Scheduled Orders Name Type Priority Associated Diagnoses Orde r Schedule Skin Biopsy Dermatology Routine Skin lesion Ordered: 07/20/2013 documented as of this encounter Procedures Procedure Name Priority Date/Time Associated Diagnosis Comments SPECIMEN TO PATHOLOGY (NON-OR) Routine 07/20/2013 11:57 AM EST Skin lesion SURGICAL PATHOLOGY REPORT Routine 07/20/2013 11:56 AM EST documented in this encounter Results * Specimen to Pathology (NON-OR) (07/20/2013 11:57 AM EST) AP Specimen 07/20/2013 11:5 7 AM EST 07/20/2013 11:57 AM EST [facility]ative [facility] - 07/20/2013 11:57 AM EST Specimen requisition ordered. ??Separate Pathology report to follow Zeenat Lopez MD PATHOLOGY/CYTOLOGY O RDERABLES [facility] * Surgical Pathology Report (07/20/2013 11:56 AM EST) Final Diagnosis ? [facility] ? Provider: ?? ZEENAT LOPEZ ? Pt. Name: ?? ONDINA FOX B ? Acc #: ?[id number] ? Pt. ? Col Date: ?? 07/20/2013 ? /Sex: ?1970,(43 ? years),Female ? Rec Date: ?? 07/20/2013 ? LOC: ?[facility] ? SURGICAL PATHOLOGY ? ---Pathologic Diagnosis--- ? Skin, mid upper back 2.0 cm left of midline and 2.0 cm superior to scar, ? 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 dysplastic nevus component. The lesion extends to the peripheral and deep ? specimen edges (see Comment). ? CR-0 ? 07/21/13 ? BJM ? 07/22/13 Verified by: ? Alexandr OJEDA, Ana Ann ? Dermatopathologist ? (Electronic Signature) ? The attending pathologist whose signature appears on this report has ? reviewed all diagnostic slides and has edited the gross and/or ? microscopic portion of the report in rendering the final pathologic ? diagnosis. ? ---Comment--- ? There are focal junctional epithelioid nests at the periphery of the lesion ? extending in a small shoulder lateral to the congenital nevus component. ? This is interpretted as a subtle, mildly atypical dysplastic nevus in ? association with a congenital nevus. Dr. Lorenzo concurs. ? The clinical appearance of a bright red lesion is noted. There is no ? significant inflammation. However, there are numerous very ctatic vessels ? within the lesion that would impart a red appearance. ? ---Gross Description--- ? A - Labeled/Fixative: Patient's information, formalin. ? Quantity/Size: Single, 0.6 x 0.6 x 0.2 cm. ? Tissue Description: Shave of domínguez-white skin with a 0.4 cm domínguez-pink papule. ? Sections/Processing: Inked and trisected. (T1) ??aml ? ---Clinical Information--- ? Specimen Submitted: ? A - Skin, mid upper back 2.0cm to the left of midline and is 2.0cm superior ? to scar, shave biopsy (1) ? Clinical History: ? 0.5 cm bright red macule with irregular borders ? [facility] ? Provider: ?? ZEENAT LOPEZ ? Pt. Name: ?? ONDINA FOX ? Acc #: ?[id number] ? Pt. ? Col Date: ?? 07/20/2013 ? /Sex: ?1970,(43 ? years),Female ? Rec Date: ?? 07/20/2013 ? LOC: ?[facility] ? SURGICAL PATHOLOGY ? Clinical Diagnosis: ? Nevus rule out atypia 07/22/2013 10:49 AM EST [facility] SPECIMEN FROM SKIN / Unknown 07/20/2013 11:56 AM EST 07/20/2013 11:56 AM EST Zeenat Lopez MD PATHOLOGY/CYTOLOGY O RDERABLES [facility] [place] [address] documented in this encounter Visit Diagnoses Diagnosis Skin lesion- Primary Unspecified disorder of skin and subcutaneous tissue documented in this encounter Care Teams Manager Battery Relationship Specialty Start Date End Date Priyanka Arita, TOW BAR DRIVER PCP - General 04/06/13 08/04/18 documented as of this encounter
--- OUTSIDE RECORDS SUMMARY | 2024-05-23 01:24 | XMS_ITS | Encounter Summary ---
Author Organization [facility] Address [facility] [place] [address] Care Team Providers Care Vice Principal Name Role Phone Priyanka Arita Nikhilkevin KRISTEL Primary Care Provid er Reason for Visit * Reason Comments Left Knee Pain Disuss Surgery, DOI: 09/18/14 Encounter Details Date Type Department Care Team (Late st Contact Info) Description 11/17/2014 8:30 AM EDT Office [place] [address] Arnol Mauro MD [facility] [place] [address] Medial meniscus, posterior horn derangement, left Discharge [...] Sign Reading Time Taken Comments Blood Pressure 122/48 11/17/2014 8:49 AM EDT Pulse 78 11/17/2014 8:49 AM EDT Temperature - - Respiratory Rate - - Oxygen Saturation - - Inhaled Oxygen Concentration - - Weight 69.9 kg (154 lb) 11/17/2014 8:49 AM EDT v erbal Height 167 cm (5' 5.75) 11/17/2014 8:49 AM EDT verbal Body Mass Index 25.05 11/17/2014 8:49 AM EDT documented in this encounter Progress Notes * Arnol Mauro MD - 11/17/2014 10:13 AM EDT Mrs. Fox is a 44-year-old female who is seen at the request of Dr. Tej Ford for evaluation of a two-month history of left knee pain. Briefly, Mrs. Fox originally injured her left knee after running on a very flat surface, noting that she was starting to limp senior care through her run. She states she heard a pop during that run and the pain in the knee has continued to progress, localizing primarily to the posteromedial aspect of the knee. She was seen by Dr. Tej Ford approximately two weeks after the onset of her pain who felt that her symptoms may be related to a medial hamstring injury. She was referred onto physical therapy. She followed up one or two times more with Dr. Ford and ultimately her pain was not improving with physical therapy and was actually worsening. She continued to complain primarily of pain with deep knee flexion, with activities such as kneeling or sitting with her knees cross legged. Because of that persistent pain, she was referred for an MRI and she is now here to be seen after that MRI to discuss further treatment options. Her MRI, which was recently performed did show a tear of the posterior root of the medial meniscus. Also of concern to Mrs. Fox is the fact that she is planning a trip to [place], which will involve hiking deep into the houser for up to three weeks in areas that are minimally inhabited. Past medical history is significant for no prior medical problems or surgeries. Her medications include Inderal and ibuprofen and SHE HAS NO KNOWN ALLERGIES. SOCIAL HISTORY: The patient is a nonsmoker and nondrinker. Physical exam demonstrates Mrs. Fox to be a very nice lady resting in no apparent distress. Left knee exam reveals no effusion and full range of motion to flexion/extension, but forced flexion of the knee does cause pain posteromedially. She has no instability to varus/valgus stress or in the AP plane with Pk's or drawer testing. She does have exquisite tenderness over her posteromedial joint line and no tenderness elsewhere along her anterior medial joint line or lateral joint line. There is no obvious effusion. MRI was reviewed and does show the ghost sign of the medial meniscus on the sagittal cut suggestive of a posterior root detachment. The coronal cuts, however, do not show significant extrusion of the medial meniscus. Her chondral surfaces show very minimal thinning and she has some small subchondral cysts beneath the anterior cruciate ligament. The lateral compartment is normal with no lateral meniscal involvement and she has a very minimal effusion. ASSESSMENT: Posterior root tear, medial meniscus, left knee. A long discussion was held with Mrs. Fox about her knee injury and her location of pain is related to her MRI findings. Her physical exam, her presentation, and MRI are consistent with the posterior root tear seen. We discussed the various treatment options including debridement versus repair of her meniscal root tear. She understands that repairing a meniscal root with transosseous tunnels will likely keep her out of any athletics for up to four to six months and the debridement would be a much shorter recovery. We, however, did discuss that debridement of posterior root tears are not always successful alleviating pain and that is why repairs are often done in that setting. Understanding this, she agrees that if she does have a tear that is amenable to repair, she would like to have it done. I have told her that her MRI does show some degeneration in the whole posterior horn of the meniscus, which may preclude doing a root repair and she feels as though she agrees with this, that she would only like to have it repaired if it is a tear which is perfectly suitable to repair. We therefore will schedule her for an arthroscopy of the left knee and possible meniscal root repair versus resection of her root tear. She understands the potential risks and complications of surgery including infection, blood clots, nerve or blood vessel injury, failure of her repair and failure to relieve her pain, and the need for future surgery. Understanding these potential risks and complications, she consents to proceed with an arthroscopic partial medial meniscectomy versus root repair of her medial meniscus in the right knee. documented in this encounter Plan of Treatment Not on file documented as of this encounter Visit Diagnoses Diagnosis Medial meniscus, posterior horn derangement, left documented in this encounter Care Teams Vice Principal Relationship Specialty Start Date End Date Priyanka Arita APRN PCP - General 04/06/13 08/04/18 documented as of this encounter
--- OUTSIDE RECORDS SUMMARY | 2024-05-23 01:24 | XMS_ITS | Encounter Summary ---
Author Organization [facility] [place] [address] Care Team Providers Care Cost Estimating Manager Name Role Phone AritaUgo bonillaedelmira Jacobs APRN Primary Care Provid er Reason for Visit * Reason Onset Date Comments Referral 09/27/2014 Encounter Details Date Type Department Care Team (Late st Contact Info) Description 09/27/2014 Telephone [place] [id number] Cindy Fay Referral Social History Tobacco Use Types Packs/Day Years Used Date Smoking Tobacco: Never Assessed Sex and Gender Information Value Date Recorded Sex Assigned at Not on file Gender Identity Not on file Sexual Orientation Not on file documented as of this encounter Miscellaneous Notes * Telephone Encounter - Cindy Meza - 09/27/2014 8:24 AM EDT Ask the patient to verify the following: Full Name: Ondina Fox : 1970 Phone number: [phone] (home) Mailing address: [address] [place] [id number] Age: 44 y.o. Appointment date: 10/01/2014 Appointment is with: TRUDY Reason #1 Injury/Complaint: LEFT KNEE SPRAIN Date of injury/complaint: 09/19/2014 Is this a new injury? Yes Is this a 2nd opinion? No Appointment type: 18-100 Adult - Not sports related Is this Workers Comp? No How long have you had these symptoms? 1 weeks Records Retrieval Most recent physical exam: No X-rays: Yes - When? Where? Notes: 09/19/2014 [facility] PH: [phone] PATIENT HAS IMAGE ON DISC MRI: No CT Scan: No Physical therapy: No Injection: No Other diagnostic studies: No Other therapies: No Other specialist(s): No If 2nd (+) opinion get info on previous: No Have you had any surgeries for this issue? No Did surgery include placement of implant/hardware or fixation of any kind? No Do you use any type of orthotics? Yes Advanced Directive Do you have an Advanced Directive on file: No - Please bring a copy to your next appointment. Advance Directive airline pilot flight instructor: New patient with knee pain under age of 55. [facility] Do you have a [facility] account? No - Patient Declined documented in this encounter Plan of Treatment Not on file documented as of this encounter Visit Diagnoses Not on filedocumented in this encounter Care Teams Cost Estimating Manager Relationship Specialty Start Date End Date Priyanka Arita APRN PCP - General 04/06/13 08/04/18 documented as of this encounter
--- OUTSIDE RECORDS SUMMARY | 2024-05-23 01:24 | XMS_ITS | Encounter Summary ---
Author Organization [facility] Address [facility] [place] [address] Care Team Providers Care High Man Name Role Phone Priyanka Arita Reynaldo SPRINKLER DRIVER Primary Care Provid er Encounter Details Date Type Department Care Team (Late st Contact Info) Description 12/23/2014 8:05 AM EDT Anesthesia Event [facility] [address] Jelena Jiménez MD [facility] [place] [address] Vidhya White MD [facility] [place] [address] Anesthesia Record Procedure Summary Procedure Name Responsible Anesthesiologist Anesthesia Start Time Anesthesia Stop Time ARTHROSCOPY KNEE, MENISCECTOMY SINGLE W/ SHAVING (WRVU 7.03) (Left: Knee) Jelena Jiménez MD 12/23/14 0805 12/23/14 0912 Events Date Time Event Comment 12/23/2014 0755 0805 Start 0811 AN Verify 0813 An Start Data 0814 An Induction 0815 An Intubation 0816 Anesthesia Ready 0902 Extubation/LMA Out To Delete (skip) the Extubation event, click the X below. 0904 An Tourn Deflated 32 minutes 0905 an stop data 0912 Stop Meds Name Total Midazolam 2 mg fentaNYL 100 mcg IV Lidocaine 40 mg Propofol 200 mg Ondansetron 4 mg dexamethasone 4 mg ceFAZolin (ANCEF) 2,000 mg in dextrose 5 % 106.06 mL 2 g Propofol INF 283.1 mg ePHEDrine 10 mg Ketorolac 30 mg lactated ringers infusion 1,000 mL 1,000 mL * Agents Name O2 Air Sevoflurane (et) * Blood No blood administrations on file. Lines, Drains, and Airways Type Details Placement Removal Incision 12/23/14; knee; 01/23 03/15 (LDA cleanup utility RA#[id number]); 1714 (LDA cleanup utility RA#[id number]) 12/23/14 0000 by Taylor Loredo RN 02/19/22 1715 by Sandie Fisher Supraglottic Mask Ventilation: No t Attempted (0); LMA Type: iGel; LMA Size: 3; Inserted by: Nani Henderson CRNA; Removal Date: 12/23/14; Removal Time: 90112/23/14 08 by Nieves Henderson CRNA 12/23/14 0902 by Nieves Henderson CRNA documented in this encounter Social History Tobacco Use Types Packs/Day Years Used Date Smoking Tobacco: Never Smokeless Tobacco: Never Alcohol Use Standard Drinks/Week Comments Yes 0 (1 standard drink = 0.6 oz pur e alcohol) rre Sex and Gender Information Value Date Recorded Sex Assigned at Not on file Gender Identity Not on file Sexual Orientation Not on file documented as of this encounter OR Notes * Anesthesia Postprocedure Evaluation - Jelena Jiménez MD - 12/23/2014 11:02 AM EDT Patient: Ondina Fox Procedure(s) Performed: Procedure(s): ARTHROSCOPY KNEE, MENISCECTOMY SINGLE W/ SHAVING Actual Anesthetic: GA Patient location: PACU; Ms. Fox was evaluated in the [facility] recovery area and met discharge criteria without issue. Post-op pain: Adequate analgesia; pt denied post-operative discomfort. Post-op nausea: no nausea or vomiting Last Vitals: Filed Vitals: 12/23/14 1000 BP: 101/58 Pulse: 66 Temp: Resp: 20 Post-op cardiovascular and respiratory status: is stable Level of consciousness: awake, alert and oriented Complications: no apparent complications and tolerated the procedure well Fluid Status: normal * Anesthesia Preprocedure Evaluation - Jelena Jiménez MD - 12/23/2014 7:55 AM EDT Pre-Anesthesia Evaluation for: Ondina Fox a 44 y.o. female. Procedure(s): ARTHROSCOPY KNEE, MENISCUS REPAIR, SINGLE ARTHROSCOPY KNEE, MENISCECTOMY SINGLE W/ SHAVING Patient Active Problem List Diagnosis ??? Medial meniscus, posterior horn derangement left s/p I+D No past medical history on file. No past surgical history on file. History Substance Use Topics ??? Smoking status: Never Smoker ??? Smokeless tobacco: Never Used ??? Alcohol Use: Yes Comment: rre History Drug Use No No Known Allergies Medications: MAR and/or home medications have been reviewed. Physical Exam: Filed Vitals: 12/23/14 0656 BP: 118/61 Pulse: 62 Temp: 37.3 ??C (99.1 ??F) Resp: 18 Body mass index is 25.06 kg/(m^2). Height: 166.4 cm (5' 5.5) Weight - Scale: 69.4 kg (153 lb) Airway Assessment: Mallampati: I TM distance: >3 FB Neck ROM: full Cardiovascular Assessment: Pulmonary Assessment: Dental Assessment: - normal exam Misc Assessment: IV access: Peripheral line Anesthesia Plan: ASA 1 general, with a(n) intravenous induction Ms. Fox is an otherwise healthy 44 year old female with a left posterior meniscal tear, who isscheduled for arthroscopic repair. Pt has NKDA. Plan for preoperative Tylenol, gabapentin, scopolamine patch, GA/LMA (propofol gtt). Risks were discussed at length, and all questions and concerns were addressed. Consent was obtained, and the appropriate paperwork was placed in the patient's chart. Region - Other Informed Consent: Anesthetic plan and risks discussed with patient and spouse. Plan discussed with CLOTH SHEARER. Misc. Assessment: documented in this encounter Plan of Treatment Not on file documented as of this encounter Visit Diagnoses Not on filedocumented in this encounter Administered Medications Inactive Administered Medications - up to 3 most recent administrations Medication Order MAR Action Action Date Dose Rate Site ceFAZolin (ANCEF) 2,000 mg in dextrose 5% 106.06 mL 2,000 mg (2 g), Intravenous, EVERY 3 HOURS, 1 dose, First dose on Leslie 12/23/14 at 0715, Redose after 3 hours., Intra-Operative (Intra-Procedure), Indication for (Active or Suspected): Prophylaxis Given 12/23/2014 8:16 AM EDT 2 g dexamethasone (DECADRON) injection PRN, Starting on Leslie 12/23/14 at 0817, Until Leslie 12/23/14 at 0912, Anesthesia Intra-op, Routine Given 12/23/2014 8:17 AM EDT 4 mg ePHEDrine 5 mg/mL multi-dose injection PRN, Starting on Leslie 12/23/14 at 0857, Until Leslie 12/23/14 at 0912, Anesthesia Intra-op, Routine Given 12/23/2014 8:57 AM EDT 10 mg fentaNYL 50 mcg/mL multi-dose injection PRN, Starting on Leslie 12/23/14 at 0814, Until Leslie 12/23/14 at 0912, Pain, Anesthesia Intra-op, Routine Given 12/23/2014 8:55 AM EDT 25 mcg Given 12/23/2014 8:34 AM EDT 25 mcg Given 12/23/2014 8:14 AM EDT 50 mcg ketorolac (TORADOL) injection PRN, Starting on Leslie 12/23/14 at 0859, Until Leslie 12/23/14 at 0912, Pain, Anesthesia Intra-op, Routine Given 12/23/2014 8:59 AM EDT 30 mg lactated ringers infusion 1,000 mL 1,000 mL, at 100 mL/hr, Intravenous, CONTINUOUS, Starting on Leslie 12/23/14 at 0715, Until Leslie 12/23/14 at 1455, Day of Surgery (Day of Procedure) New Bag 12/23/2014 9:12 AM EDT New Bag 12/23/2014 8:05 AM EDT New Bag 12/23/2014 7:42 AM EDT 1,000 mLs 100 mL/hr lidocaine (PF) (XYLOCAINE) 100 mg/5 mL (2 %) injection PRN, Starting on Leslie 12/23/14 at 0814, Until Leslie 12/23/14 at 0912, Anesthesia Intra-op, Routine Given 12/23/2014 8:14 AM EDT 40 mg midazolam (PF) (VERSED) 1 mg/mL multi-dose injection PRN, Starting on Leslie 12/23/14 at 0805, Until Leslie 12/23/14 at 0912, Sleep, Anesthesia Intra-op, Routine Given 12/23/2014 8:05 AM EDT 2 mg ondansetron (ZOFRAN) injection PRN, Starting on Leslie 12/23/14 at 0817, Until Leslie 12/23/14 at 0912, Nausea, Anesthesia Intra-op, Routine Given 12/23/2014 8:17 AM EDT 4 mg propofol (DIPRIVAN) 10 mg/mL bolus injection (Anesthesia) PRN, Starting on Leslie 12/23/14 at 0814, Until Leslie 12/23/14 at 0912, Anesthesia Intra-op Given 12/23/2014 8:14 AM EDT 200 mg propofol (DIPRIVAN) infusion CONTINUOUS PRN, Starting on Leslie 12/23/14 at 0819, Until Leslie 12/23/14 at 0912, Anesthesia Intra-op, Routine Rate/Dose Change 12/23/2014 8:58 AM EDT 50 mcg/kg/min 21 mL/hr New Bag 12/23/2014 8:19 AM EDT 100 mcg/kg/min 41.9 mL/h r documented in this encounter Care Teams High Man Relationship Specialty Start Date End Date Priyanka Arita, KRISTEL PCP - General 04/06/13 08/04/18 documented as of this encounter
[2024-05-23] MEDS: Tetracaine 0.5% 4 ML BTL OP (01:46)
[2024-05-23] MEDS: Fluorescein STRIPS 100/BOX 1 MG OP (01:47)
--- NOTE | 2024-05-23 02:16 | W.ED.GENAD ---
Discharge Plan Disposition Patient Disposition: Home Condition: Good Discharge Details Clinical Impression: Acute conjunctivitis of both eyes Primary Care Provider: Unknown,Unknown ED Provider: Rina Zamudio Home Meds and New Rx's Prescriptions: Continued azithromycin 250 mg tablet 250 mg PO DAILY Rx Instructions: start on day 2 of therapy Discharge Instructions Instructions: Conjunctivitis ([facility]) ED Additional Instructions: Do not wear contacts. Do not touch your eyes. Continue to take the medications you were prescribed. 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 Return to the emergency department for new or worsening symptoms including vision changes, eye pain, or if you have any other concerns. HPI General Mode of arrival: ambulatory. Date/Time Provider Initiated Documentation: 05/23/24 01:17. Limitations to Documentation: no limitations. Information obtained by: patient. HPI Narrative: 54yo F contact lens wearer presenting with 6 days of eye redness and tearing. Seen at [facility] on saturday and saturday; initially prescribed tobramycin drops then switched to azithromycin PO. Symptoms started with left eye then spread to right (on saturday). Has watery discharge, no purulent discharge, no vision changes, no eye pain, no flashes, no floaters. History of prior eye surgery for narrow angles, at visit on Saturday she was told her angles were again narrow. Presents to the ED concerned because her symptoms are not improving and worried about possible increased eye pressure. No trauma to the eye. No foreign body sensation. Otherwise in her usual state of health and systemically well with no fevers, chills, rash, or other concerns. Related Data Home Medications ?Medication ?Instructions ?Recorded ?Confirmed azithromycin 250 mg tablet 250 mg PO DAILY 05/23/24 05/23/24 Allergies Allergy/AdvReac Type Severity Reaction Status Date / Time No Known Allergies Allergy Unverified 05/23/24 01:23 General Stated Complaint: EyeProblem EDGAR: 4 Review of Systems Narrative: see HPI Exam Narrative Exam Narrative: General: Alert, well appearing, well nourished, in no acute distress. Head: Normocephalic, atraumatic Neck: Trachea midline, ?Neck supple. Cardiac: ?No cyanosis. Resp: No respiratory distress. Speaking in full sentences. Extremities: ?No deformities.? Neurologic: GCS 15. ? Moves all extremities freely against gravity Eye: ?PERRL ?EOM full and pain free.? Visual biggs intact to confrontation bilaterally R: ? ? VA- 20/20 ? IOP- 13.2? ?Lids/lashes- nml ?Conjuctiva-injected ?Cornea: Clear ?Fluoro: No ulcer or abrasion, -Bj L: ? ? VA- 20/25 ? IOP- 11.7? ?Lids/lashes- nml ?Conjuctiva-injected ?Cornea: Clear ? Fluoro: No ulcer or abrasion, -Bj Course Vital Signs Vital signs: Vital Signs Pulse 82 05/23/24 01:17 Respiratory Rate 18 05/23/24 01:17 Blood Pressure 156/73 H 05/23/24 01:17 Pulse Oximetry 98 05/23/24 01:17 Temperature 36.3 C L 05/23/24 01:24 Temperature Source Tympanic 05/23/24 01:24 Pulse 74 05/23/24 01:24 Respiratory Rate 17 05/23/24 01:24 Respiratory Effort Normal 05/23/24 01:24 Blood Pressure 156/73 H 05/23/24 01:24 Pulse Oximetry 99 05/23/24 01:24 Oxygen Delivery Method Room Air 05/23/24 01:24 Oxygen Flow Rate 0 05/23/24 01:24 Pain Level 3 05/23/24 01:17 Medical Decision Making 54yo F contact lens wearer presenting with 6 days of eye redness and tearing. Seen at [facility] on saturday and saturday; initially prescribed tobramycin drops then switched to azithromycin PO. Symptoms started with left eye then spread to right (on saturday). Has watery discharge, no purulent discharge, no vision changes, no eye pain. History of prior eye surgery for narrow angles, at visit on Saturday she was told her angles were again narrow. Presents to the ED concerned because her symptoms are not improving and worried about possible increased eye pressure. On exam she has bilateral conjuctival injection, watery discharge. VA 20/20 R, 20/25 left. Normal IOP bilaterally (not glaucoma, acute angle closure or otherwise). Normal florescenine exam with no suggestion of corneal ulcer, corneal abrasion, zoster, globe rupture. No indication for labs or imaging or emergent ophthalmology consult. Most consistent with viral conjunctivitis; bacterial also possible, advised her to continue her treatment as previously prescribed by [facility] and to follow up with them on Saturday. Discharged home; discharge instructions and return precautions were reviewed with patient who verbalized understanding. All questions were answered and she is in full agreement with the plan. Quality:SDOH Health Related Social Needs: No Data to Display PFSH All Active Problems (Updated 05/23/24 @ 02:20 by Rina Zamudio MD) Acute conjunctivitis of both eyes (Acute) Social History Smoking/Tobacco Use Status: Never Smoking risk assessment performed?: Yes Alcohol Intake: never Drug use: Never Substance use type: does not use Do you feel safe at home: Yes Do you feel safe in your relationship?: Yes
[2024-05-23 02:25] VITALS: BP 127/62; PULSE 72; RESP 16; TEMP 36.9; O2SAT 100
== END 2024-05-23 02:42 | disposition home or self-care (01) ==
PROVIDERS: Emergency Provider Student in an Organized Health Care Education/Training Program
DX: H10.33 Unspecified acute conjunctivitis, bilateral (principal)
CPT/HCPCS: 99283